=== PATIENT | female | born 1930 | race Caucasian/White ===

== ENCOUNTER 2017-04-18 18:13 | Emergency (ER) | payer OTHER ==
[2015-12-02 16:20] VITALS: BP 165/76
[2017-04-18] MEDS ORDERED: INVANZ INJ 1 GM VIAL 1 GM in NS 50 ML IV + SPIKE MINIBAG* 50 ML IV ONE (18:31)
[2017-04-18] MEDS ORDERED: INVANZ INJ 1 GM VIAL ONE (18:32)
[2017-04-18] MEDS ORDERED: NS 50 ML IV 50 ML IV ONE (18:32)
== END 2017-04-18 19:19 | disposition home or self-care (01) ==
LOC: OUTPT REF 18:13
DX: N39.0 Urinary tract infection, site not specified (principal); Z79.899 Other long term (current) drug therapy; B96.29 Other Escherichia coli [E. coli] as the cause of diseases classified elsewhere
CPT/HCPCS: 96365; 96374; J1335

== ENCOUNTER 2017-05-16 20:39 | Observation (INO) | payer OTHER ==
[2017-05-16 21:16] LABS: BASOPHILS % (AUTO) 0.8 % (0.2-1.0); EOSINOPHILS # (AUTO) 0.5 x10^3/uL (0.0-0.2); EOSINOPHILS % (AUTO) 8.5 % (0.9-2.9); HEMATOCRIT 31.1 % (36.0-47.0); HEMOGLOBIN 10.4 g/dL (12.0-16.0); LYMPHOCYTES # (AUTO) 1.9 X10^3/uL (1.3-2.9); LYMPHOCYTES % (AUTO) 31.2 % (21.0-51.0); MEAN CORPUSCULAR HEMOGLOBIN 32.2 pg (27.0-34.0); MEAN CORPUSCULAR HGB CONC 33.4 g/dL (33.0-35.0); MEAN CORPUSCULAR VOLUME 96.3 fL (80.0-100.0); MEAN PLATELET VOLUME 8.8 fL (7.4-11.0); MONOCYTES # (AUTO) 0.6 x10^3/uL (0.3-0.8); MONOCYTES % (AUTO) 10.1 % (0.0-13.0); NEUTROPHILS # (AUTO) 2.9 x10^3/uL (2.2-4.8); NEUTROPHILS % (AUTO) 49.4 % (42.0-75.0); PLATELET COUNT 119 X10^3/uL (150.0-450.0); RED BLOOD COUNT 3.23 X10^6/uL (3.5-5.4); RED CELL DISTRIBUTION WIDTH 12.9 % (11.6-16.5); WHITE BLOOD COUNT 5.9 X10^3/uL (3.6-10.0)
--- NOTE | 2017-05-16 21:27 | CT ---
CT HEAD WITHOUT CONTRAST CLINICAL HISTORY: 86-year-old female complaining of mini-stroke. COMPARISON: CT head 02/28/2016. TECHNIQUE: Multiple, non-contrasted axial CT images were obtained from the skull base to the cranial vertex. Coronal and sagittal reformats were performed. FINDINGS: There are no abnormal intra- or extra-axial fluid collections, midline shift, or mass effec t. Haas-white differentiation is normal. Global cortical involutional changes are present that are ad vanced for the patient's stated age. The ventricular system is mildly enlarged but commensurate with the degree of sulcal prominence. Chronic lacunar infarctions of bilateral basal ganglia. Periventricu lar and supraventricular white matter hypodensity is present that is nonspecific in appearance, but m ost likely to represent microvascular ischemic changes. Atherosclerotic vascular calcification is pre sent within the carotid siphons and distal vertebral arteries. The imaged paranasal sinuses, mastoid air cells, and tympanic spaces are clear. Bilateral lens implan ts with senescent scleral calcifications. IMPRESSION: 1. No definite evidence of an acute intracranial process. If clinical concern persists, consider MRI/ MRA brain. 2. Moderate microvascular white matter ischemic changes, with associated volume loss. 3. Chronic bilateral lacunar infarcts within the basal ganglia. Reported By:
[2017-05-16 21:33] LABS: CALCIUM 9.4 mg/dL (8.5-10.1); CARBON DIOXIDE 32.5 mmol/L (21-32); CREATININE 1.35 mg/dL (0.55-1.02); TROPONIN I 0.02 ng/mL (0-1.5)
[2017-05-16 21:37] LABS: ALBUMIN 2.8 g/dL (3.4-5.0); CKMB % 1.2 % (<4); COR CA(FOR HYPOALB) 10.4 mg/dL (8.5-10.1); CREATINE KINASE MB 3.6 ng/mL (0-4.0); TOTAL PROTEIN 6.1 g/dL (6.4-8.2)
--- NOTE | 2017-05-16 21:45 | RAD ---
Chest, one view Indication: Weakness Comparison: None Findings: The heart is mildly enlarged and there is mild pulmonary vascular congestion without overt edema. No focal consolidation, significant effusion or pneumothorax is identified. No acute osseous a bnormality is seen. Impression: Mild cardiomegaly and pulmonary vascular congestion without overt edema or focal pneumoni a. Reported By:
--- NOTE | 2017-05-16 22:03 | DR.GENAD ---
HPI - PCP Primary Care Physician: LYRIC - HPI Comment HPI Comment: PATIENT IS NOT BEING FEELING QUITE RIGHT PAST 3 DAYS. SHE WAS INCONTINENCE TO URINE WHEN SHE HAD THE BELOW EPISODE. NO FEVER. WEAK WITH SLIGHT SOB ON EXERTION. - Complaint/Symptoms Chief Complaint Doctors Comments: HAD CHEST PAIN LT PRECORDIAL AREA WHILE LISTENING TO MUSIC. SHE FELT HEAVINESS IN LEFT ARM. WHEN SHE TRY TO MOVE HER WHEELCHAIR, HER LUE WAS HEAVY. COULD NOT MOVE IT. WAS ABLE TO MOVE IT GRADUALY OVER TIME. Chief Complaint:: GROUP HOME STATES PT WAS COMPLAINING THAT SHE HAD A "MINI STROKE". GROUP HOME STATES PT IS WEAKER THAN NORMAL AND HAD AN INCONTINENT EPISODE ALTHOUGH SHE IS NORMALLY CONTINENT. - Nurses notes reviewed Nurses Notes Review: Yes - Source History Provided: Patient, [facility] - Mode of Arrival Mode of Arrival: Stretcher - Timing Onset of Chief Complaint: 05/16/17 Came on: Suddenly - Duration Duration: Constant Duration: Hours - Severity Severity: Moderate PMH - PMH Past Medical History: Yes Past Medical History: Anxiety, Arthritis, Depression, Migraines, GERD, Hypertension Past Surgical History: Yes Surgical History: Hysterectomy, Mastectomy, Thyroidectomy - Family History History of Family Medical Conditions: Yes Family Medical History: Diabetes Mellitus, Cancer, Hypertension - Social History Does any household member use tobacco: No Alcohol Use: None Do you use any recreational Drugs:: No Lives With: Other Lives Where: [facility] - infectious screening In the last 2 months have you had wt loss of >10#?: NO Have you had fever, night sweats or hemotysis?: No Have you traveled outside the country in the last 6 months?: No Isolation: Standard ROS - Review of Systems Constitutional: Weakness, Fatigue, Loss of Appetite. negative: Chills, Fever Eyes: No Symptoms Reported. negative: Eye Pain, Discharge ENTM: No Symptoms Reported. negative: Ear Pain, Nose Discharge, Nose Congestion , Throat Pain Respiratoy: Non-Productive Cough, Short of Breath. negative: Productive Cough, Wheezing Cardiovascular: Chest Pain. negative: Edema, Palpitations Gastrointestinal/Abdominal: negative: Abdominal Pain, Nausea, Vomiting Genitourinary: Other (URINARY INCONTINENCE TONIGHT.). negative: Dysuria, Hematuria Neurological: Weakness. negative: Headache, Dizziness Musculoskeletal: Back Pain, Muscle Pain, Back Integumentary: negative: Change in Color Hematologic/Lymphatic: Anemia Endocrine: No Symptoms Reported All Other Systems: Reviewed and Negative PE - Vital Signs Vitals: Temperature 98.4 F Pulse Rate [Apical] 51 Pulse Rate 53 Respiratory Rate 18 Blood Pressure [Left Calf] 140/65 Blood Pressure [Right Arm] 144/82 Blood Pressure [Left Arm] 126/59 Blood Pressure 134/69 O2 Sat by Pulse Oximetry 95 - General Limitations: No Limitations General Appearance: Alert - Head Head Exam: Normal Inspection - Eyes Eye exam: Normal Appearance, PERRL, EOMI. negative: Scleral Icterus, Conjunctival Injection - ENT ENT Exam: Normal External Ear Exam External Ear Exam: Normal External Inspection TM/Canal Exam: Bilateral Normal Mouth Exam: Normal Inspection Throat Exam: Normal Inspection - Neck Neck Exam: Normal Inspection - Chest Chest Inspection: Symmetric Chest Wall Rise - Respiratory Respiratory Exam: Normal Lung Sounds Bilat Respiratory Exam: Bilateral Wheezing, Bilateral Rhonchi, Upper Rhonchi, Lower Wheezing, Lower Rhonchi - Cardiovascular Cardiovascular Exam: Regular Rate, Normal Rhythm, Normal Heart Sounds - Abdominal Exam Abdominal Exam: Normal Bowel Sounds, Soft. negative: Tenderness - Extremities Extremities Exam: Normal Inspection - Back Back Exam: Paraspinal Tenderness - Neurologic Neurological Exam: Alert, Oriented X3 - Psychiatric Psychiatric Exam: Normal Affect, Normal Mood - Skin Skin Exam: Normal Color MDM - Additional Information Additional Information Obtained From: Family - Differential Diagnosis Differential Diagnosis: CHEST PAIN, LUEE WEAKNESS, CVA, LA, PNEMONIA Course - Treatment Treatment: SEE ORDERS. - Consultation Consultation Comments: DISCUSS PATIENT WITH DR. STEWART. HE WILL ADMIT PATIENT. - Education/Counseling Education/Counseling: Patient, Family, Education Educated On: Diagnosis ROR - Labs Reviewed Laboratory Results Reviewed?: Yes Result Diagrams: 05/16/17 21:05 05/16/17 21:05 Laboratory: WBC 5.9 X10^3/uL (3.6-10.0) 05/16/17 21:05 RBC 3.23 X10^6/uL (3.5-5.4) L 05/16/17 21:05 Hgb 10.4 g/dL (12.0-16.0) L 05/16/17 21:05 Hct 31.1 % (36.0-47.0) L 05/16/17 21:05 MCV 96.3 fL (80.0-100.0) 05/16/17 21:05 MCH 32.2 pg (27.0-34.0) 05/16/17 21:05 MCHC 33.4 g/dL (33.0-35.0) 05/16/17 21:05 RDW 12.9 % (11.6-16.5) 05/16/17 21:05 Plt Count 119 X10^3/uL (150.0-450.0) L 05/16/17 21:05 MPV 8.8 fL (7.4-11.0) 05/16/17 21:05 Neut % 49.4 % (42.0-75.0) 05/16/17 21:05 Lymph % 31.2 % (21.0-51.0) 05/16/17 21:05 [place] % 10.1 % (0.0-13.0) 05/16/17 21:05 Eos % 8.5 % (0.9-2.9) H 05/16/17 21:05 Baso % 0.8 % (0.2-1.0) 05/16/17 21:05 Neut # 2.9 x10^3/uL (2.2-4.8) 05/16/17 21:05 Lymph # 1.9 X10^3/uL (1.3-2.9) 05/16/17 21:05 [place] # 0.6 x10^3/uL (0.3-0.8) 05/16/17 21:05 Eos # 0.5 x10^3/uL (0.0-0.2) H 05/16/17 21:05 Baso # 0.0 X10^3/uL (0.0-0.1) 05/16/17 21:05 Absolute Nucleated RBC 0.0 /100WBC 05/16/17 21:05 Sodium 144 mmol/L (136-145) 05/16/17 21:05 Corrected Sodium 145 mmol/L (136-145) 05/16/17 21:05 Potassium 4.0 mmol/L (3.5-5.1) 05/16/17 21:05 Chloride 110 mmol/L (98-107) H 05/16/17 21:05 Carbon Dioxide 32.5 mmol/L (21-32) H 05/16/17 21:05 BUN 29 mg/dL (7-18) H 05/16/17 21:05 Creatinine 1.35 mg/dL (0.55-1.02) H 05/16/17 21:05 Est GFR (MDRD) Af Amer 48 (>60) L 05/16/17 21:05 Est GFR (MDRD) Non-Af 39 (>60) L 05/16/17 21:05 Glucose 131 mg/dL (65-99) H 05/16/17 21:05 Calcium 9.4 mg/dL (8.5-10.1) 05/16/17 21:05 Corrected Calcium 10.4 mg/dL (8.5-10.1) H 05/16/17 21:05 Total Bilirubin 0.20 mg/dL (0.2-1.0) 05/16/17 21:05 AST 21 Units/L (15-37) 05/16/17 21:05 ALT 12 Units/L (12-78) 05/16/17 21:05 Alkaline Phosphatase 118 Units/L (46-116) H 05/16/17 21:05 Creatine Kinase 310 Units/L (26-192) H 05/16/17 21:05 CK-MB (CK-2) 3.6 ng/mL (0-4.0) 05/16/17 21:05 CK/CKMB % Calc 1.2 % (<4) 05/16/17 21:05 Troponin I 0.02 ng/mL (0-1.5) 05/16/17 21:05 Total Protein 6.1 g/dL (6.4-8.2) L 05/16/17 21:05 Albumin 2.8 g/dL (3.4-5.0) L 05/16/17 21:05 Globulin 3.3 g/dL (2.5-4.5) 05/16/17 21:05 Albumin/Globulin Ratio 0.8 Ratio (1.1-2.1) L 05/16/17 21:05 - XRAY XRAY Interpreted by: Radiologist XRAY Findings: REPORT DISCUSS WITH PATIENT AND FAMILY. - EKG Rhythm: NSR (EKG NOTED) - Diagnosis Discharge Problem: LUE weakness Chest pain Qualifiers: Chest pain type: precordial pain Qualified Code(s): R07.2 - Precordial pain - Discharge Plan Disposition: ADMITTED INPATIENT Condition: Stable - Follow ups/Referrals - Instructions
[2017-05-16] MEDS: NS 1000 ML 1,000 ML IV SCH (23:20)
[2017-05-16 23:52] LABS: BILIRUBIN,URINE NEGATIVE (NEGATIVE); BLOOD/HEMOGLOBIN,URINE NEGATIVE (NEGATIVE); GLUCOSE, URINE NEGATIVE (NEGATIVE); KETONES,URINE NEGATIVE (NEGATIVE); LEUKOCYTE ESTERASE ,URINE 1+ (NEGATIVE); NITRITES,URINE NEGATIVE (NEGATIVE); PROTEIN,URINE NEGATIVE (NEGATIVE); UROBILINOGEN,URINE NORMAL (NORMAL)
[2017-05-17 00:05] LABS: APPEARANCE,URINE CLEAR (CLEAR); COLOR,URINE YELLOW (YELLOW); RBC,URINE 0-3 /HPF (NEGATIVE)
[2017-05-17 00:06] LABS: BACTERIA,URINE NEGATIVE /HPF (NEGATIVE); SQUAMOUS EPITHELIAL CELL,UR FEW /HPF (NEGATIVE)
[2017-05-17 06:09] LABS: CKMB % 1.1 % (<4); CREATINE KINASE MB 2.4 ng/mL (0-4.0); TROPONIN I 0.04 ng/mL (0-1.5)
[2017-05-17 06:10] LABS: BASOPHILS % (AUTO) 0.6 % (0.2-1.0); EOSINOPHILS # (AUTO) 0.5 x10^3/uL (0.0-0.2); EOSINOPHILS % (AUTO) 7.9 % (0.9-2.9); HEMATOCRIT 32.5 % (36.0-47.0); HEMOGLOBIN 10.8 g/dL (12.0-16.0); LYMPHOCYTES # (AUTO) 1.9 X10^3/uL (1.3-2.9); MEAN CORPUSCULAR HEMOGLOBIN 31.9 pg (27.0-34.0); MEAN CORPUSCULAR HGB CONC 33.2 g/dL (33.0-35.0); MEAN CORPUSCULAR VOLUME 96.1 fL (80.0-100.0); MEAN PLATELET VOLUME 9.7 fL (7.4-11.0); MONOCYTES # (AUTO) 0.6 x10^3/uL (0.3-0.8); MONOCYTES % (AUTO) 8.1 % (0.0-13.0); NEUTROPHILS # (AUTO) 3.8 x10^3/uL (2.2-4.8); NEUTROPHILS % (AUTO) 55.4 % (42.0-75.0); PLATELET COUNT 126 X10^3/uL (150.0-450.0); RED BLOOD COUNT 3.38 X10^6/uL (3.5-5.4); RED CELL DISTRIBUTION WIDTH 13.1 % (11.6-16.5); WHITE BLOOD COUNT 6.9 X10^3/uL (3.6-10.0)
[2017-05-17 06:23] LABS: ALANINE AMINOTRANSFERASE 13 Units/L (12-78); ALBUMIN 2.8 g/dL (3.4-5.0); ALKALINE PHOSPHATASE 108 Units/L (46-116); ASPARTATE AMINO TRANSFERASE 24 Units/L (15-37); BLOOD UREA NITROGEN 22 mg/dL (7-18); CALCIUM 9.5 mg/dL (8.5-10.1); CHLORIDE 112 mmol/L (98-107); CHOL/HDL RATIO 2.9 (0.0-5.0); CHOLESTEROL 147 mg/dL (0-200); COR CA(FOR HYPOALB) 10.5 mg/dL (8.5-10.1); CREATININE 1.06 mg/dL (0.55-1.02); HDL CHOLESTEROL 51 mg/dL (40-60); MAGNESIUM 1.8 mg/dL (1.7-2.9); SODIUM 145 mmol/L (136-145); TOTAL PROTEIN 6.2 g/dL (6.4-8.2); TRIGLYCERIDES 110 mg/dL (0-150); eGFR BLACK RACES > 60 (>60); eGFR NON BLACK RACES 52 (>60)
[2017-05-17] MEDS ORDERED: XANAX PO PRN (09:12)
[2017-05-17] MEDS ORDERED: NORCO 10/325 TAB PO PRN (09:13)
[2017-05-17] MEDS ORDERED: PATIENT'S HOME MEDICATION (Memantine Hcl [Namenda] 5 MG) PO SCH (09:15)
[2017-05-17] MEDS ORDERED: LACTOSE REDUCED FOOD PO SCH (09:15)
[2017-05-17] MEDS ORDERED: PATIENT'S HOME MEDICATION (Zinc [Zinc] 50 MG) PO SCH (09:15)
[2017-05-17] MEDS ORDERED: PATIENT'S HOME MEDICATION (Ranitidine Hcl [Zantac] 300 MG) PO SCH (09:15)
[2017-05-17] MEDS ORDERED: CATAPRES-TTS-1 TD SCH (10:00)
[2017-05-17] MEDS: ASPIRIN EC 81 MG PO SCH (10:35)
[2017-05-17] MEDS: COLACE CAP 100 MG PO SCH ×2 (10:35→21:56)
[2017-05-17] MEDS: NORVASC TAB 5 MG PO SCH (10:36)
[2017-05-17] MEDS: PLAVIX PO SCH (10:36)
[2017-05-17] MEDS: MOBIC TAB 15 MG PO SCH (10:36)
[2017-05-17] MEDS: COZAAR PO SCH (10:36)
[2017-05-17] MEDS: VITAMIN C PO SCH ×2 (10:37→21:56)
[2017-05-17] MEDS: TOPROL XL PO SCH (10:37)
[2017-05-17 11:22] LABS: TROPONIN I 0.03 ng/mL (0-1.5)
[2017-05-17] MEDS ORDERED: PATIENT'S HOME MEDICATION (Carboxymethylcellulose Sodium [Refresh Tears] 1 DROP) OP SCH (14:00)
[2017-05-17] MEDS: NEURONTIN CAP 300 MG PO SCH ×2 (14:05→21:56)
[2017-05-17 18:02] LABS: CKMB % 0.9 % (<4); CREATINE KINASE MB 2.2 ng/mL (0-4.0); TROPONIN I 0.03 ng/mL (0-1.5)
[2017-05-17] MEDS ORDERED: LEXAPRO ONE (20:58)
[2017-05-17] MEDS ORDERED: REQUIP PO SCH (21:00)
[2017-05-17] MEDS ORDERED: LEXAPRO PO SCH (21:00)
[2017-05-17] MEDS ORDERED: DESYREL PO SCH (21:00)
[2017-05-17] MEDS ORDERED: COLACE CAP 100 MG PO SCH (21:00)
[2017-05-17] MEDS ORDERED: NAMENDA TAB 10 MG PO SCH (21:00)
[2017-05-17] MEDS ORDERED: TOPAMAX PO SCH (21:00)
[2017-05-17] MEDS ORDERED: ZIPRASIDONE HCL 40 MG PO SCH (21:00)
[2017-05-17] MEDS ORDERED: MIRALAX POWDER (1 DOSE 17GM) PO SCH (21:00)
[2017-05-17] MEDS ORDERED: ARICEPT TAB 10 MG PO SCH (21:00)
[2017-05-17] MEDS ORDERED: GEODON PO SCH (21:00)
[2017-05-17] MEDS ORDERED: ESCITALOPRAM OXALATE 20 MG PO SCH (21:00)
[2017-05-17] MEDS ORDERED: MILK OF MAGNESIA PO SCH (21:00)
[2017-05-17] MEDS: ZANTAC PO SCH (21:55)
[2017-05-17 23:18] LABS: CREATINE KINASE MB 1.9 ng/mL (0-4.0); TROPONIN I 0.03 ng/mL (0-1.5)
[2017-05-18] MEDS: NS 1000 ML 1,000 ML IV SCH (01:35)
[2017-05-18] MEDS: NEURONTIN CAP 300 MG PO SCH (05:15)
[2017-05-18 06:10] LABS: BASOPHILS # (AUTO) 0.1 X10^3/uL (0.0-0.1); BASOPHILS % (AUTO) 0.8 % (0.2-1.0); EOSINOPHILS # (AUTO) 0.4 x10^3/uL (0.0-0.2); EOSINOPHILS % (AUTO) 4.9 % (0.9-2.9); HEMATOCRIT 37.6 % (36.0-47.0); HEMOGLOBIN 12.6 g/dL (12.0-16.0); LYMPHOCYTES # (AUTO) 1.8 X10^3/uL (1.3-2.9); LYMPHOCYTES % (AUTO) 24.4 % (21.0-51.0); MEAN CORPUSCULAR HEMOGLOBIN 31.9 pg (27.0-34.0); MEAN CORPUSCULAR HGB CONC 33.6 g/dL (33.0-35.0); MEAN PLATELET VOLUME 9.4 fL (7.4-11.0); MONOCYTES # (AUTO) 0.8 x10^3/uL (0.3-0.8); MONOCYTES % (AUTO) 10.7 % (0.0-13.0); NEUTROPHILS # (AUTO) 4.4 x10^3/uL (2.2-4.8); NEUTROPHILS % (AUTO) 59.2 % (42.0-75.0); PLATELET COUNT 151 X10^3/uL (150.0-450.0); RED BLOOD COUNT 3.96 X10^6/uL (3.5-5.4); RED CELL DISTRIBUTION WIDTH 12.8 % (11.6-16.5); WHITE BLOOD COUNT 7.4 X10^3/uL (3.6-10.0)
--- NOTE | 2017-05-18 06:27 | RAD ---
Examination: Portable AP chest History: SOB Comparison reference: 05/16/2017 Findings: Continued normal heart size with essentially clear lungs. Prominence of the central vascula rity is attributed to nonstandard projection. There is no evidence for pneumonia or pleural fluid. Le ft shoulder arthropathy is incidentally noted. Impression: No acute process demonstrated. Reported By:
[2017-05-18 06:58] LABS: ALANINE AMINOTRANSFERASE 15 Units/L (12-78); ALBUMIN 3.2 g/dL (3.4-5.0); ALKALINE PHOSPHATASE 125 Units/L (46-116); ASPARTATE AMINO TRANSFERASE 26 Units/L (15-37); BLOOD UREA NITROGEN 13 mg/dL (7-18); CALCIUM 10.1 mg/dL (8.5-10.1); CARBON DIOXIDE 26.1 mmol/L (21-32); CHLORIDE 110 mmol/L (98-107); CKMB % 1.1 % (<4); COR CA(FOR HYPOALB) 10.7 mg/dL (8.5-10.1); CREATINE KINASE 145 Units/L (26-192); CREATINE KINASE MB 1.6 ng/mL (0-4.0); CREATININE 0.99 mg/dL (0.55-1.02); SODIUM 144 mmol/L (136-145); TOTAL PROTEIN 7.1 g/dL (6.4-8.2); TROPONIN I 0.03 ng/mL (0-1.5); eGFR BLACK RACES > 60 (>60); eGFR NON BLACK RACES 56 (>60)
[2017-05-18 07:09] VITALS: BMI 19.8
[2017-05-18] MEDS ORDERED: TOPROL XL PO ONE (08:07)
[2017-05-18] MEDS: TOPROL XL PO SCH (08:47)
[2017-05-18] MEDS: ASPIRIN EC 81 MG PO SCH (08:48)
[2017-05-18] MEDS: COLACE CAP 100 MG PO SCH (08:48)
[2017-05-18] MEDS: PLAVIX PO SCH (08:48)
[2017-05-18] MEDS: COZAAR PO SCH (08:48)
[2017-05-18] MEDS: MOBIC TAB 15 MG PO SCH (08:48)
[2017-05-18] MEDS: ZANTAC PO SCH (08:49)
[2017-05-18] MEDS: NORVASC TAB 5 MG PO SCH (08:49)
[2017-05-18] MEDS: VITAMIN C PO SCH (08:49)
[2017-05-18] MEDS ORDERED: NAMENDA TAB 10 MG PO SCH (09:00)
[2017-05-18] MEDS ORDERED: NORVASC TAB 10 MG PO SCH (10:00)
[2017-05-18] MEDS ORDERED: CATAPRES-TTS-2 TD SCH ×2 (10:00→11:00)
--- NOTE | 2017-05-18 13:00 | MRI ---
MRA HEAD WITHOUT CONTRAST CLINICAL HISTORY: 86-year-old female with headaches, dizziness and left-sided weakness PE COMPARISONS: None. TECHNIQUE: 3-D time of flight magnetic resonance angiographic images of the [place] were obt ained and presented as maximum intensity projection images in rotating format. FINDINGS: Left dominant vertebral artery. Bilateral PICA are present. The basilar artery is normal in appearanc e and gives off normal bilateral AICA superior cerebellar and posterior cerebral arteries. The recording studio intern al carotid arteries are normal from the distal cervical segments to the carotid terminus. There are s mall caliber posterior communicating arteries bilaterally. The middle cerebral arteries are normal in course and caliber. The anterior communicating artery is fenestrated with a serpiginous, tortuous co urse of the A1 segments. IMPRESSION: 1. No aneurysm, high-grade stenosis, complete occlusion, dissection or vascular malformation. Reported By:
--- NOTE | 2017-05-18 13:06 | MRI ---
MRI BRAIN WITHOUT AND WITH CONTRAST CLINICAL HISTORY: 86-year-old female with headaches, dizziness and left-sided weakness. COMPARISON: CT head 05/16/2017. TECHNIQUE: Multiplanar, multisequence MR images of the brain were obtained prior to and following th e uneventful intravenous administration of contrast. FINDINGS: Study is limited secondary to patient motion. There is no evidence of diffusion restriction. The craniocervical junction is normal. Pituitary and o ptic nerve complex are normal. Multifocal confluent and punctate T2 FLAIR signal hyperintensities are present within the periventricular and supraventricular white matter that are nonspecific in appeara nce but most likely to represent microvascular white matter ischemic changes. Chronic lacunar infarct ions in the bilateral basal ganglia. Enlarged perivascular spaces within the basal ganglia. Normal si gnal characteristics and morphology are demonstrated within the cerebral cortex, corpus callosum, jeffry p morrow nuclei, brainstem and cerebellum. The major vascular channels opacify normally and the major v ascular flow voids, to include the dural venous sinuses, are intact. Age advanced cortical volume los s is present, with commensurate sulcal and ventricular prominence. The basilar cisterns are normal. T here is no evidence of abnormal intracranial enhancement. Bilateral lens implants. The orbits and globes are otherwise within normal limits. The paranasal sinu ses and mastoids are clear. IMPRESSION: 1. No acute ischemic or hemorrhagic insult. 2. 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 3. Bilateral chronic lacunar infarcts within the basal ganglia. Reported By:
[2017-05-18 13:50] VITALS: BP 168/83
--- NOTE | 2017-05-18 16:16 | DR.H&P ---
H&P - History & Physical for Day of: H&P Date: 05/16/17 - Chief Complaint Chief Complaint: chest pain, left arm weakness - Allergies Allergies/Adverse Reactions: Allergies Allergy/AdvReac Type Severity Reaction Status Date / Time codeine Allergy Verified 05/16/17 22:24 - History of Present Illness History of Present Illness: is a 86 year old patient of ours who presented to the emergency room with complaints of chest pain. alf staff reports that patient states that she thinks she may have had a mini stroke. They state that patient is weaker than normal and had an incontinent episode. Patient is normally continent. Patient is also noted with complaints of left arm weakness and drooping of the wrist. Patient describes chest pain in the precordial area. She states that it came on suddenly while listening to music. Associated symptoms include weakness, fatigue, loss of appetite, non productive cough, shortness of breath, chest pain and urinary incontinence. On examination, bilateral wheezing and rhonchi are noted throughout. Abdomen is round, soft, and non-tender with normal bowel sounds noted in all quadrants. On arrival to the emergency room, vital signs were 98.4, 53, 20, 95%RA, 134/69. Labs, xray, and brain ct were obtained. Abnormal Lab values include the following: RBC 3.23, Hgb 10.4, Hct 31.1, Plt Count 119, Chloride 110, Carbon Dioxide 32.5, BUN 29, Creatinine 1.35, GFR(AA) 48, GFR(non) 39, Glucose 131, Corrected Calcium 10.4, Alk Phos 118, Creatine Kinase 310, Total Protein 6.1, Albumin 2.8, A/G Ratio 0.8. Urinalysis reported: Leuk Key 1+, RBC 0-3, WBC 0-3 , Squam Epith Cells Few. Chest xray reported: Mild cardiomegaly and pulmonary vascular congestion without overt edema or focal pneumonia. Brain CT reported: No definite evidence of an acute intracranial process. If clinical concern persists, consider MRI/MRA brain. Moderate microvascular white matter ischemic changes, with associated volume loss. Chronic bilateral lacunar infarcts within the basal ganglia. EKG: Sinus rhythm. Heart rate=52. We admitted patient for further treatment and evaluation. We will obtain serial cardiac enzymes and EKGs. We plan to follow up with am labs and continue to monitor patient. - Past Medical History Past Medical History: Anxiety, Arthritis, Depression, Migraines, GERD, Hypertension Additional Medical History: Right Breast Cancer in 1985 - Past Surgical History Surgical History: Hysterectomy, Mastectomy, Thyroidectomy - Family History Family Medical History: Diabetes Mellitus, Cancer, Hypertension - Social History Does any household member use tobacco: No Alcohol Use: None Drug Use: None - Medications Home Medications: Alprazolam 1 tab PO Q8H PRN 05/16/17 [History Confirmed 05/17/17] Ascorbic Acid [VITAMIN C tab 500 mg *] 500 mg PO BID 05/16/17 [History Confirmed 05/17/17] Carboxymethylcellulose Sodium [Refresh Tears] 1 drop OP TID 05/16/17 [History Confirmed 05/17/17] Donepezil Hydrochloride [ARICEPT TAB 10 MG *] 10 mg PO HS 05/16/17 [History Confirmed 05/17/17] Escitalopram Oxalate [Lexapro 20 mg] 20 mg PO HS 05/16/17 [History Confirmed 09/01] Hydrocodone-Acet 10/325 mg [NORCO 10 MG/325 MG *] 1 tab PO Q4HR PRN 05/16/17 [ History Confirmed 05/17/17] Lactose-Reduced Food [Ensure Enlive] 8 oz PO DAILY 05/16/17 [History Confirmed 05/17/17] Losartan Potassium [LOSARTAN POTASSIUM 50 MG *] 75 mg PO DAILY 05/16/17 [ History Confirmed 05/17/17] Meloxicam 1 tab PO DAILY 05/16/17 [History Confirmed 05/17/17] Memantine HCl [NAMENDA 10 MG *] 10 mg PO HS 05/16/17 [History Confirmed 05/17/17 ] Memantine HCl [Namenda] 5 mg PO DAILY 05/16/17 [History Confirmed 05/17/17] Metoprolol Succinate Ext Rel [TOPROL XL 100 MG *] 100 mg PO DAILY 05/16/17 [ History Confirmed 05/17/17] Ranitidine HCl [Zantac] 300 mg PO BID 05/16/17 [History Confirmed 05/17/17] Ropinirole HCl [REQUIP 1 MG *] 1 mg PO HS 05/16/17 [History Confirmed 05/17/17] Topiramate 1 tab PO HS 05/16/17 [History Confirmed 05/17/17] Trazodone HCl [TRAZODONE 50 MG (DESYREL) *] 50 mg PO HS 05/16/17 [History Confirmed 05/17/17] Zinc 50 mg PO DAILY 05/16/17 [History Confirmed 05/17/17] Ziprasidone HCl [Geodon] 40 mg PO HS 05/16/17 [History Confirmed 05/17/17] - Review of Systems Constitutional: Weakness Eyes: No Symptoms Reported - Physical Exam Vital Signs: Temperature 99.2 F Pulse Rate [Apical] 69 Pulse Rate 53 Respiratory Rate 20 Blood Pressure [Left Calf] 140/65 Blood Pressure [Right Arm] 144/82 Blood Pressure [Left Arm] 168/83 Blood Pressure 134/69 O2 Sat by Pulse Oximetry 94
== END 2017-05-18 14:40 ==
LOC: ER 20:39 → ICU 22:33 → MED/SURG 05-17 09:45
PROVIDERS: ADMIT Internal Medicine; ATTEND Internal Medicine
DX: R07.2 Precordial pain (principal); M62.81 Muscle weakness (generalized); R94.31 Abnormal electrocardiogram [ECG] [EKG]; R06.02 Shortness of breath; N39.498 Other specified urinary incontinence; I51.7 Cardiomegaly; K21.9 Gastro-esophageal reflux disease without esophagitis; I10 Essential (primary) hypertension; L89.322 Pressure ulcer of left buttock, stage 2; L89.312 Pressure ulcer of right buttock, stage 2; D64.89 Other specified anemias; Z79.899 Other long term (current) drug therapy
CPT/HCPCS: 36415; 70450; 70544; 70553; 71010; 80053; 80061; 81001; 82550; 82553; 83735; 84484; 85025; 93005; 96365; 99284; A4222; G0378

== ENCOUNTER → 2017-09-18 | Outpatient (CLI) | payer OTHER | END | disposition home or self-care (01) | DRG 951 | LOC: RT 14:52 | PROVIDERS: ATTEND Internal Medicine | DX: Z01.810 Encounter for preprocedural cardiovascular examination (principal); L89.153 Pressure ulcer of sacral region, stage 3 | CPT/HCPCS: 93005 ==

== ENCOUNTER → 2017-09-19 | Outpatient (CLI) | payer OTHER ==
--- NOTE | 2017-09-19 12:57 | RAD ---
HISTORY: Preop Study: PA and lateral chest Comparison: 05/18/2017 Findings: There are findings of mild interstitial fibrosis. Borderline cardiomegaly is noted. Moderate tortuo sity of the aorta is present. Moderate osteopenia is noted. Severe degenerative changes present in the left shoulder with mild in the right shoulder. [id number] thoracic spondylosis is noted. IMPRESSION: 1. No radiographic evidence of acute cardiopulmonary disease or significant change is noted when com pared to the prior examination. Reported By:
--- NOTE | 2017-09-19 15:14 | NM ---
HISTORY: Sacral wound Study: Nuclear medicine whole-body bone scan Comparison: None Technique: Whole body bone scintigraphy was performed in the anterior and posterior projection after the intravenous administration of 20.3 mCi of technetium labeled . Findings: There is mild degenerative type uptake within the bilateral shoulders and knees. No suspicious bone u ptake is identified. Of note, evaluation of the sacrum is limited due to physiologic radiotracer acti vity within the bladder. Physiologic distribution of radiotracer is observed throughout the remaining appendicular and axial skeleton. Normal soft tissue uptake is noted to be present as well. IMPRESSION: Limited evaluation of the sacrum due to physiologic bladder activity. If there is high clinical prabha rn for osteomyelitis of the sacrum, consider further evaluation with dedicated sacral radiographs. Mild degenerative type uptake of the bilateral shoulders and knees. Otherwise, unremarkable whole bod y bone scan, as visualized. Reported By:
== END ==
LOC: RAD 10:02
PROVIDERS: ATTEND Internal Medicine
DX: L89.153 Pressure ulcer of sacral region, stage 3 (principal); M19.90 Unspecified osteoarthritis, unspecified site
CPT/HCPCS: 71046; 78306; A9503

== ENCOUNTER 2017-09-20 08:29 | Day surgery (SDC) | payer OTHER ==
[~2017-09-20 08:29] MED LIST: XYLOCAINE 1 % (PLAIN) ONE
[2017-09-20] MEDS ORDERED: ANCEF 1 GM IV PREMIX* 1 GM/50 ML BAG IV ONE (08:44)
[2017-09-20] MEDS ORDERED: LR 1000 ML IV 1,000 ML IV ONE (08:44)
[2017-09-20] MEDS ORDERED: NS IRRIGATION 1000 ML 1,000 ML with BACITRACIN VIAL 50,000 UNT IR ONE ×2 (09:12)
[2017-09-20 10:08] VITALS: BP 128/60
[2017-09-20] MEDS ORDERED: DIPRIVAN VIAL ONE (13:50)
== END 2017-09-20 10:08 | disposition home or self-care (01) | DRG 570 ==
LOC: SURG1 08:29
PROVIDERS: ATTEND Surgery
PROC: 0JB70ZZ Excision of Back Subcutaneous Tissue and Fascia, Open Approach (ICD-10-PCS; principal; 2017-09-20 08:45)
DX: L89.153 Pressure ulcer of sacral region, stage 3 (principal)
CPT/HCPCS: 87070; 87075; 87205; 99100; A4222; J0690; J2001; J3490; J7120

== ENCOUNTER 2017-10-05 10:31 | Day surgery (SDC) | payer OTHER ==
[~2017-10-05 10:31] MED LIST changes: +LR 1000 ML IV 1,000 ML IV ONE; -XYLOCAINE 1 % (PLAIN) ONE
[2017-10-05] MEDS ORDERED: MARCAINE 0.25% INJ ONE (11:34)
[2017-10-05] MEDS: ANCEF 1 GM IV PREMIX* 1 GM/50 ML BAG IV ONE ×2 (11:52→12:45)
[2017-10-05] MEDS ORDERED: FENTANYL INJ 100 mcg ONE (13:02)
[2017-10-05] MEDS ORDERED: XYLOCAINE 1% and EPINEPHRINE 1:100,000 ONE (13:12)
[2017-10-05] MEDS ORDERED: LEVAQUIN PREMIX IV 500 MG 500 MG/100 ML BAG IV ONE (13:14)
[2017-10-05] MEDS ORDERED: NS IRRIGATION 1000 ML 1,000 ML with BACITRACIN VIAL 50,000 UNT IR ONE ×2 (13:23)
[2017-10-05] MEDS ORDERED: VERSED ONE (13:35)
[2017-10-05] MEDS ORDERED: DIPRIVAN VIAL ONE (13:35)
[2017-10-05] MEDS ORDERED: XYLOCAINE 2 % (PLAIN) ONE (13:35)
[2017-10-05] MEDS ORDERED: BACTROBAN OINT ONE (14:01)
[2017-10-05 15:05] VITALS: BP 135/71
== END 2017-10-05 14:55 ==
LOC: SURG1 10:31
PROVIDERS: ATTEND Surgery
PROC: 0HX6XZZ Transfer Back Skin, External Approach (ICD-10-PCS; 2017-10-05)
PROC: 0JD70ZZ Extraction of Back Subcutaneous Tissue and Fascia, Open Approach (ICD-10-PCS; principal; 2017-10-05 12:00)
DX: L89.153 Pressure ulcer of sacral region, stage 3 (principal)
CPT/HCPCS: 99100; A4222; S0020; J0690; J1956; J2001; J2250; J3010; J3490; J7120

== ENCOUNTER 2018-05-17 22:19 | Observation (INO) ==
[2018-05-17 22:35] VITALS: BMI 19.5
--- NOTE | 2018-05-17 23:06 | DR.GENAD ---
HPI - PCP Primary Care Physician: LYRIC - Complaint/Symptoms Chief Complaint Doctors Comments: Patient sent from residential for evaluation of lethargy, weakness, decreased intake with sacral decubitus that is draining more than usual. patient is alert and denies chest pain, SOB, cold or cough. states she hurts all over. States she is a patient of Dr. Nugent. Chief Complaint:: RECIEVED REPORT FROM Chas BLANCO FROM [facility]. REPORTED GENERALIZED WEAKNESS, LETHARGY, AND DECREASED URINARY OUTPUT TODAY. ALSO NURSE REPORTS THAT PT HAS A SACRAL WOUND THAT IS OPEN MORE AND DRAINING MORE THAN IT HAS BEEN. INFORMED THAT PT HAD AN IN AND OUT CATH DONE TODAY THAT SHOWED A UTI. PT IS A FULL CODE. - Nurses notes reviewed Nurses Notes Review: Yes - Source History Provided: [facility] - Mode of Arrival Mode of Arrival: Stretcher - Timing Onset of Chief Complaint: 05/17/18 Came on: Gradually - Duration Duration: Constant How lon Duration: Days - Location Location: weakness - Severity Severity: Moderate - Modifying Factors Worsens:: nothing Improves:: nothing PMH - PMH Past Medical History: Yes Past Medical History: Anxiety, Arthritis, Dementia, Depression, Migraines, GERD, Hypertension, Schizophrenia Past Medical History Comment: OSTEOARTHRITIS, HYPERLIPIDEMIA Past Surgical History: Yes Surgical History: Hysterectomy, Mastectomy, Thyroidectomy - Family History History of Family Medical Conditions: Yes Family Medical History: Diabetes Mellitus, Cancer, Hypertension - Social History Does patient currently use any type of tobacco product: No Have you used tobacco products in the last 12 months: No Type of Tobacco Use: None Does any household member use tobacco: No Alcohol Use: None Do you use any recreational Drugs:: No Lives Where: [facility] - infectious screening In the last 2 months have you had wt loss of >10#?: NO Have you had fever, night sweats or hemotysis?: No Have you traveled outside the country in the last 6 months?: No Isolation: Standard ROS - Review of Systems Constitutional: No Symptoms Reported, Malaise, Weakness, Loss of Appetite Eyes: No Symptoms Reported ENTM: No Symptoms Reported Respiratoy: No Symptoms Reported. negative: See HPI, Productive Cough, Non- Productive Cough, Moist Cough, Dry Cough, Hacking Cough, Barking Cough, Brassy Cough, Orthopnea, Short of Breath, Stridor, Wheezing, Hemoptysis, Other Cardiovascular: No Symptoms Reported. negative: See HPI, Chest Pain, Edema, Palpitations, Syncope, Cyanosis, Skin Mottling, Other Gastrointestinal/Abdominal: No Symptoms Reported. negative: See HPI, Abdominal Pain, Constipation, Diarrhea, Nausea, Vomiting, Food Intolerance, Other Genitourinary: No Symptoms Reported Neurological: No Symptoms Reported Musculoskeletal: No Symptoms Reported, Back Pain (chronic back pain) Integumentary: No Symptoms Reported, Wound (sacral wound 2 -3 cm ulceration with erythema) Hematologic/Lymphatic: No Symptoms Reported Endocrine: No Symptoms Reported, Failure to Thrive, Decreased Appetite Psychiatric: No Symptoms Reported PE - General Limitations: No Limitations General Appearance: Alert, In No Apparent Distress - Head Head Exam: Normal Inspection, Atraumatic, Normocephalic - Eyes Eye exam: Normal Appearance, PERRL, EOMI. negative: Scleral Icterus, Conjuncti fabricio Injection, Nystagmus, Miosis, Mydrasis, Periorbital Swelling, Periorbital Tenderness, Other - ENT ENT Exam: Normal Exam, Normal Oropharynx, Normal External Ear Exam, Mucous Membranes Moist, TM's Normal Bilaterally External Ear Exam: Normal External Inspection TM/Canal Exam: Bilateral Normal Nose Exam: Normal Nose Exam Mouth Exam: Normal Inspection Throat Exam: Normal Inspection. negative: Tonsillar Erythema, Tonsillomegaly, Tonsillar Exudate, R Peritonsillar Mass, L Peritonsillar Mass, Muffled Voice, Other - Neck Neck Exam: Normal Inspection, Full ROM, Trachea Midline. negative: Tenderness, Meningismus, Lymphadenopathy, Thyromegaly, Other - Chest Chest Inspection: Normal Inspection, Symmetric Chest Wall Rise - Respiratory Respiratory Exam: Normal Lung Sounds Bilat Respiratory Exam: Bilateral Clear to Auscultation - Cardiovascular Cardiovascular Exam: Regular Rate, Normal Rhythm, Normal Heart Sounds - Abdominal Exam Abdominal Exam: Normal Inspection, Normal Bowel Sounds, Soft Abdominal Tenderness: negative: RUQ, RLQ, LUQ, LLQ, Epigastrium, Suprapubic, Diffuse, Mild, Moderate, Severe, Other - Extremities Extremities Exam: Normal Inspection, Full ROM, Normal Capillary Refill. negative: Tenderness, Edema, Joint Swelling, Calf Tenderness, Other - Back Back Exam: Normal Inspection, Full ROM - Neurologic Neurological Exam: Alert, Oriented X3, CN II-XII Intact, Reflexes Normal. negative: Normal Gait (gait not tested) - Psychiatric Psychiatric Exam: Normal Affect, Normal Mood - Skin Skin Exam: Warm, Dry. negative: Intact (2-3 cm sacral ulcer with erythema, pinkish drainage) - Vital Signs Vitals: Temperature 97.9 F Pulse Rate [Left Brachial] 44 Pulse Rate 46 Respiratory Rate 18 Blood Pressure [Left Calf] 104/53 Blood Pressure [Right Arm] 144/82 Blood Pressure [Left Arm] 168/83 Blood Pressure 126/61 O2 Sat by Pulse Oximetry 97 Course - Reevaluation 1st: Improved - Consultation Called: :57 Call Returned: :57 (Dr. Darnell to admit) - Education/Counseling Education/Counseling: Patient Educated On: Treatment, Diagnosis, Needs for Follow Up ROR - Labs Reviewed Laboratory Results Reviewed?: Yes (All labs and x-ray results reviewed and discussed with patient) Result Diagrams: 05/17/18 23:12 05/17/18 23:12 - XRAY XRAY Interpreted by: Radiologist (CXR: Right lung opacities concerning for developing pneumonia. Underlying neoplasm not excluded) - EKG Rate: 49 [place]: Normal Rhythm: SB Block: None Hypertrophy: LVH ST: Nonsp - Labs Reviewed Laboratory: WBC 7.2 X10^3/uL (3.6-10.0) 05/17/18 23:12 RBC 2.71 X10^6/uL (3.5-5.4) L 05/17/18 23:12 Hgb 9.3 g/dL (12.0-16.0) L 05/17/18 23:12 Hct 27.6 % (36.0-47.0) L 05/17/18 23:12 MCV 102.0 fL (80.0-100.0) H 05/17/18 23:12 MCH 34.3 pg (27.0-34.0) H 05/17/18 23:12 MCHC 33.7 g/dL (33.0-35.0) 05/17/18 23:12 RDW 13.2 % (11.6-16.5) 05/17/18 23:12 Plt Count 135 X10^3/uL (150.0-450.0) L 05/17/18 23:12 MPV 8.9 fL (7.4-11.0) 05/17/18 23:12 Neut % (Auto) 64.8 % (42.0-75.0) 05/17/18 23:12 Lymph % (Auto) 22.1 % (21.0-51.0) 05/17/18 23:12 [place] % (Auto) 9.2 % (0.0-13.0) 05/17/18 23:12 Eos % (Auto) 3.4 % (0.9-2.9) H 05/17/18 23:12 Baso % (Auto) 0.5 % (0.2-1.0) 05/17/18 23:12 Neut # (Auto) 4.7 x10^3/uL (2.2-4.8) 05/17/18 23:12 Lymph # (Auto) 1.6 X10^3/uL (1.3-2.9) 05/17/18 23:12 [place] # (Auto) 0.7 x10^3/uL (0.3-0.8) 05/17/18 23:12 Eos # (Auto) 0.2 x10^3/uL (0.0-0.2) 05/17/18 23:12 Baso # (Auto) 0.0 X10^3/uL (0.0-0.1) 05/17/18 23:12 Absolute Nucleated RBC 0.0 /100WBC 05/17/18 23:12 INR Target Range - 05/17/18 23:12 INR 1.18 (0.8-1.3) 05/17/18 23:12 APTT 40.5 SECONDS (22.9-36.5) H 05/17/18 23:12 PTT Comment - 05/17/18 23:12 Sodium 140 mmol/L (136-145) 05/17/18 23:12 Corrected Sodium 141 mmol/L (136-145) 05/17/18 23:12 Potassium 4.3 mmol/L (3.5-5.1) 05/17/18 23:12 Chloride 111 mmol/L (98-107) H 05/17/18 23:12 Carbon Dioxide 25.1 mmol/L (21-32) 05/17/18 23:12 BUN 29 mg/dL (7-18) H 05/17/18 23:12 Creatinine 1.56 mg/dL (0.55-1.02) H 05/17/18 23:12 Est GFR (MDRD) Af Amer 40 (>60) L 05/17/18 23:12 Est GFR (MDRD) Non-Af 33 (>60) L 05/17/18 23:12 Glucose 133 mg/dL (65-99) H 05/17/18 23:12 Lactic Acid 1.1 mmol/L (0.4-2.0) 05/17/18 23:12 Calcium 8.7 mg/dL (8.5-10.1) 05/17/18 23:12 Corrected Calcium 10.3 mg/dL (8.5-10.1) H 05/17/18 23:12 Magnesium 2.2 mg/dL (1.7-2.9) 05/17/18 23:12 Total Bilirubin 0.20 mg/dL (0.2-1.0) 05/17/18 23:12 AST 22 Units/L (15-37) 05/17/18 23:12 ALT 12 Units/L (12-78) 05/17/18 23:12 Alkaline Phosphatase 112 Units/L (46-116) 05/17/18 23:12 Creatine Kinase 135 Units/L (26-192) 05/17/18 23:12 CK-MB (CK-2) 3.5 ng/mL (0-4.0) 05/17/18 23:12 CK/CKMB % Calc 2.6 % (<4) 05/17/18 23:12 Troponin I 0.03 ng/mL (0-1.5) 05/17/18 23:12 Total Protein 5.8 g/dL (6.4-8.2) L 05/17/18 23:12 Albumin 2.0 g/dL (3.4-5.0) L 05/17/18 23:12 Globulin 3.8 g/dL (2.5-4.5) 05/17/18 23:12 Albumin/Globulin Ratio 0.5 Ratio (1.1-2.1) L 05/17/18 23:12 - Diagnosis Discharge Problem: Cellulitis of buttock, Pulmonary infiltrate, Hypercalcemia, Bradycardia with 41-50 beats per minute, Dehydration, COPD (chronic obstructive pulmonary disease) Altered mental status Qualifiers: Altered mental status type: transient alteration of awareness Qualified Code(s): R40.4 - Transient alteration of awareness Sacral decubitus ulcer Qualifiers: Pressure injury stage: unstageable Qualified Code(s): L89.150 - Pressure ulcer of sacral region, unstageable - Discharge Plan Disposition: ADMITTED INPATIENT Condition: Stable - Follow ups/Referrals Follow ups/Referrals: Mirza Nugent [Primary Care Provider] - 3 days - Instructions
[2018-05-17 23:22] LABS: BASOPHILS % (AUTO) 0.5 % (0.2-1.0); EOSINOPHILS # (AUTO) 0.2 x10^3/uL (0.0-0.2); EOSINOPHILS % (AUTO) 3.4 % (0.9-2.9); HEMATOCRIT 27.6 % (36.0-47.0); HEMOGLOBIN 9.3 g/dL (12.0-16.0); LYMPHOCYTES # (AUTO) 1.6 X10^3/uL (1.3-2.9); LYMPHOCYTES % (AUTO) 22.1 % (21.0-51.0); MEAN CORPUSCULAR HEMOGLOBIN 34.3 pg (27.0-34.0); MEAN CORPUSCULAR HGB CONC 33.7 g/dL (33.0-35.0); MEAN PLATELET VOLUME 8.9 fL (7.4-11.0); MONOCYTES # (AUTO) 0.7 x10^3/uL (0.3-0.8); MONOCYTES % (AUTO) 9.2 % (0.0-13.0); NEUTROPHILS # (AUTO) 4.7 x10^3/uL (2.2-4.8); NEUTROPHILS % (AUTO) 64.8 % (42.0-75.0); PLATELET COUNT 135 X10^3/uL (150.0-450.0); RED BLOOD COUNT 2.71 X10^6/uL (3.5-5.4); RED CELL DISTRIBUTION WIDTH 13.2 % (11.6-16.5); WHITE BLOOD COUNT 7.2 X10^3/uL (3.6-10.0)
[2018-05-17 23:36] LABS: LACTIC ACID 1.1 mmol/L (0.4-2.0)
[2018-05-17 23:43] LABS: CALCIUM 8.7 mg/dL (8.5-10.1); CARBON DIOXIDE 25.1 mmol/L (21-32); CREATININE 1.56 mg/dL (0.55-1.02); TROPONIN I 0.03 ng/mL (0-1.5)
[2018-05-17] MEDS: NS 1000 ML 1,000 ML IV SCH (23:43)
[2018-05-17 23:47] LABS: CKMB % 2.6 % (<4); COR CA(FOR HYPOALB) 10.3 mg/dL (8.5-10.1); CREATINE KINASE MB 3.5 ng/mL (0-4.0); MAGNESIUM 2.2 mg/dL (1.7-2.9); TOTAL PROTEIN 5.8 g/dL (6.4-8.2)
[2018-05-18] MEDS ORDERED: ROCEPHIN VIAL 1 GRAM IVP ONE (00:59)
[2018-05-18] MEDS ORDERED: ROCEPHIN VIAL 1 GRAM ONE (01:21)
[2018-05-18] MEDS ORDERED: DUONEB 0.5 MG/3 MG NEB ONE (02:06)
[2018-05-18] MEDS ORDERED: DUONEB 0.5 MG/3 MG ONE (02:11)
[2018-05-18] MEDS ORDERED: LEVAQUIN PREMIX IV 500 MG 500 MG/100 ML BAG IV ONE ×2 (02:12→02:24)
[2018-05-18] MEDS ORDERED: NS 1/2 1000 ML IV 1,000 ML IV SCH (03:00)
[2018-05-18] MEDS ORDERED: HumuLIN R SC PRN (03:01)
[2018-05-18] MEDS ORDERED: SALINE 3% 15 ML NEB TX ONE (03:10)
[2018-05-18] MEDS ORDERED: SALINE 3% 15 ML NEB TX NEB ONE (03:10)
[2018-05-18 03:30] LABS: BILIRUBIN,URINE NEGATIVE (NEGATIVE); BLOOD/HEMOGLOBIN,URINE 3+ (NEGATIVE); GLUCOSE, URINE NEGATIVE (NEGATIVE); KETONES,URINE NEGATIVE (NEGATIVE); LEUKOCYTE ESTERASE ,URINE 1+ (NEGATIVE); NITRITES,URINE NEGATIVE (NEGATIVE); PROTEIN,URINE 2+ (NEGATIVE); UROBILINOGEN,URINE NORMAL (NORMAL)
[2018-05-18 03:31] LABS: APPEARANCE,URINE CLEAR (CLEAR); COLOR,URINE YELLOW (YELLOW)
[2018-05-18 03:37] LABS: BACTERIA,URINE TRACE /HPF (NEGATIVE); CALCIUM OXALATE CRYSTALS,UR RARE /HPF (NEGATIVE); SQUAMOUS EPITHELIAL CELL,UR MODERATE /HPF (NEGATIVE)
[2018-05-18 03:38] LABS: HYALINE CASTS, URINE FEW /LPF (NEGATIVE)
[2018-05-18] MEDS ORDERED: DUONEB 0.5 MG/3 MG NEB PRN (03:39)
[2018-05-18] MEDS: ROBITUSSIN DM PO SCH ×4 (08:25→21:01)
[2018-05-18] MEDS ORDERED: NORCO 5/325 MG TAB PO PRN (11:05)
[2018-05-18] MEDS: XANAX PO SCH ×3 (11:33→21:52)
[2018-05-18] MEDS: NORCO 10/325 TAB PO PRN ×2 (11:33→17:33)
[2018-05-18] MEDS ORDERED: NORCO 10/325 TAB PO PRN (12:06)
--- NOTE | 2018-05-18 12:35 | DR.H&P ---
H&P - History & Physical for Day of: H&P Date: 05/18/18 - Chief Complaint Chief Complaint: AMS PER INTERMEDIATE STAFF, CELLULITIS TO SACRAL DECUBITUS - History of Present Illness History of Present Illness: 87 WF ER ADMISSION, PT IS RESIDENT OF [facility] AND WAS BROUGHT TO ER FOR REPORTS OF INCREASED CONFUSION, GENERALIZED WEAKNESS. PT HAD 2 SACRAL DECUBITUS, ONE WITH INCREASED DRAINAGE AND LOCALIZED REDNESS, PT CO PAIN TO AREA. PT WBC NORMAL ON ADMISSON, INCREASED CREAT, FAMILY REPORTS SHE HASNT BEEN DRINKING ENOUGH. PT HAS PMH OF OA, AFTT, HTN, DECUBITUS. PT ADMITTED FOR TREATMENT OF ACUTE ILLNESS - Past Medical History Past Medical History: Anxiety, Arthritis, Dementia, Depression, Migraines, GERD, Hypertension, Schizophrenia Additional Medical History: Right Breast Cancer in 1984 - Past Surgical History Surgical History: Hysterectomy, Mastectomy, Thyroidectomy - Family History Family Medical History: Diabetes Mellitus, Cancer, Hypertension - Social History Does patient currently use any type of tobacco product: No Have you used tobacco products in the last 12 months: No Type of Tobacco Use: None Does any household member use tobacco: No Alcohol Use: None Drug Use: None - Medications Home Medications: codeine Allergy (Verified 05/16/17 22:24) CONTINUE taking the following medications carboxymethylcellulose sodium [Refresh Tears] 1 drp OPHTHALMIC (EYE) TID 05/18/18 [History] lisinopril 5 mg PO DAILY 05/18/18 [History] pantoprazole 40 mg PO DAILY 05/18/18 [History] sulfamethoxazole-trimethoprim [Bactrim DS] 1 tab PO 05/18/18 [History] - Review of Systems Constitutional: Weakness Eyes: No Symptoms Reported ENT: No Symptoms Reported Respiratory: Shortness of Breath Cardiovascular: denies: Edema Gastrointestinal: Nausea Genitourinary: No Symptoms Reported Musculoskeletal: Back Pain Skin: Wound Neurological: Weakness - Physical Exam Vital Signs: Temperature 98.0 F Pulse Rate [Left Brachial] 80 Pulse Rate 46 Respiratory Rate 18 Blood Pressure [Left Calf] 104/53 Blood Pressure [Right Arm] 144/82 Blood Pressure [Left Arm] 135/60 Blood Pressure 126/61 O2 Sat by Pulse Oximetry 99 Oriented: Person Eyes: Normal Ear: Normal Nose: Normal Throat: Dry Respiratory: RLL Diminished, LLL Diminished Cardiovascular: Normal. negative: Edema : Normal Auscultation: Bowel Sounds: Normal Palpation: Normal Tenderness: Normal Skin: Red, Tender, Wound (STAGE 2 SACRAL PRESSURE ULCERATION WITH LOCALIZED REDNESS, STAGE 3 PRESSURE ULCER WITH SCANT D/C AND LOCALIZED REDNESS, SEVERE TENDERNESS) Musculoskeletal: Back:Thoracic, Back:Lumbar, Motor Deficit, Instability Psychiatric: Anxiety Affect: Anxious Speech Pattern: Clear, Appropriate - Assessment/Plan (1) Altered mental status Qualifiers: Altered mental status type: transient alteration of awareness Qualified Code(s): R40.4 - Transient alteration of awareness Status: Acute Plan: MONITOR, ADMIT. WOUND CULTURE, CONSULT DR SANTIAGO. ADMISSON LABS I & OS, REPEAT AM CXR AND LABS. UA, VERIFY HOME MEDS. HOLD CATAPRES PATCH DUE TO BRADYCARDIA- WEAKNESS MAY PT SYMPTOMATIC MANFRED. IV ABTX, WOUND CARE, TURN Q 2 HRS, PAIN CONTROL (2) Sacral decubitus ulcer Qualifiers: Pressure injury stage: unstageable Qualified Code(s): L89.150 - Pressure ulcer of sacral region, unstageable Status: Acute (3) Cellulitis of buttock Status: Acute (4) Hypertension Status: Chronic (5) GERD (gastroesophageal reflux disease) Status: Chronic (6) Arthritis Status: Chronic (7) Anxiety Status: Chronic (8) Bradycardia with 41-50 beats per minute Status: Acute Plan: HOLD CATAPRES PATCH. TELEMETRY, EKG ON ADMISSON. BP MONITORING - Allergies Allergies/Adverse Reactions: Allergies Allergy/AdvReac Type Severity Reaction Status Date / Time codeine Allergy Verified 05/16/17 22:24
[2018-05-18] MEDS: NS 1000 ML 1,000 ML IV SCH ×2 (12:55→22:16)
[2018-05-18] MEDS ORDERED: XANAX PO SCH (13:00)
[2018-05-18] MEDS ORDERED: PHARMACY CONSULT - DOSE _____ XX SCH (13:00)
[2018-05-18] MEDS ORDERED: CATAPRES-TTS-2 TD SCH (13:00)
[2018-05-18] MEDS ORDERED: PATIENT'S HOME MEDICATION (Carboxymethylcellulose Sodium [Refresh Tears] 1 DROP) OP SCH (14:00)
[2018-05-18] MEDS: NEURONTIN CAP 300 MG PO SCH ×2 (15:31→21:10)
[2018-05-18] MEDS ORDERED: HYDROGEN PEROXIDE 3% ONE (17:02)
[2018-05-18] MEDS: PATIENT'S HOME MEDICATION (Carboxymethylcellulose Sodium [Refresh Tears] 1 DROP) OP SCH ×2 (17:27→21:10)
[2018-05-18] MEDS ORDERED: LEXAPRO ONE (20:08)
[2018-05-18] MEDS ORDERED: NS 100 ML IV + SPIKE MINIBAG* 100 ML IV ONE (20:53)
[2018-05-18] MEDS: ROCEPHIN VIAL 1 GRAM IVP SCH (20:55)
[2018-05-18] MEDS: CRESTOR TAB 10 MG PO SCH (20:56)
[2018-05-18] MEDS: COLACE CAP 100 MG PO SCH (20:56)
[2018-05-18] MEDS: ZANTAC PO SCH (20:57)
[2018-05-18] MEDS: REQUIP PO SCH (20:58)
[2018-05-18] MEDS: LEXAPRO PO SCH (20:58)
[2018-05-18] MEDS: NAMENDA TAB 10 MG PO SCH (20:59)
[2018-05-18] MEDS: PATIENT'S HOME MEDICATION (Amino Acids-Protein Hydrolys [Pro-Stat Awc] 30 ML) PO SCH (21:00)
[2018-05-18] MEDS: MIRALAX POWDER (1 DOSE 17 G) PO SCH (21:00)
[2018-05-18] MEDS ORDERED: NAMENDA TAB 10 MG PO SCH (21:00)
[2018-05-18] MEDS ORDERED: ESCITALOPRAM OXALATE 5 MG PO SCH (21:00)
[2018-05-18] MEDS: TEFLARO 400 MG in NS 50 ML IV 50 ML IV SCH (22:15)
[2018-05-19] MEDS: NS 1000 ML 1,000 ML IV SCH ×2 (04:36→18:05)
[2018-05-19] MEDS: NEURONTIN CAP 300 MG PO SCH ×3 (05:05→21:08)
[2018-05-19] MEDS: PATIENT'S HOME MEDICATION (Carboxymethylcellulose Sodium [Refresh Tears] 1 DROP) OP SCH (05:05)
[2018-05-19 05:54] LABS: BASOPHILS % (AUTO) 0.4 % (0.2-1.0); EOSINOPHILS # (AUTO) 0.5 x10^3/uL (0.0-0.2); EOSINOPHILS % (AUTO) 5.1 % (0.9-2.9); HEMATOCRIT 31.8 % (36.0-47.0); HEMOGLOBIN 10.5 g/dL (12.0-16.0); LYMPHOCYTES # (AUTO) 1.6 X10^3/uL (1.3-2.9); LYMPHOCYTES % (AUTO) 15.4 % (21.0-51.0); MEAN CORPUSCULAR HEMOGLOBIN 33.7 pg (27.0-34.0); MEAN CORPUSCULAR HGB CONC 32.8 g/dL (33.0-35.0); MEAN CORPUSCULAR VOLUME 102.6 fL (80.0-100.0); MEAN PLATELET VOLUME 9.5 fL (7.4-11.0); MONOCYTES # (AUTO) 0.9 x10^3/uL (0.3-0.8); MONOCYTES % (AUTO) 8.5 % (0.0-13.0); NEUTROPHILS # (AUTO) 7.3 x10^3/uL (2.2-4.8); NEUTROPHILS % (AUTO) 70.6 % (42.0-75.0); PLATELET COUNT 138 X10^3/uL (150.0-450.0); RED CELL DISTRIBUTION WIDTH 13.6 % (11.6-16.5); WHITE BLOOD COUNT 10.3 X10^3/uL (3.6-10.0)
[2018-05-19] MEDS: NORCO 10/325 TAB PO PRN ×2 (06:02→19:30)
[2018-05-19 06:18] LABS: ALANINE AMINOTRANSFERASE 16 Units/L (12-78); ALBUMIN 2.1 g/dL (3.4-5.0); ALKALINE PHOSPHATASE 114 Units/L (46-116); BLOOD UREA NITROGEN 25 mg/dL (7-18); CALCIUM 8.4 mg/dL (8.5-10.1); CARBON DIOXIDE 24.1 mmol/L (21-32); CHLORIDE 111 mmol/L (98-107); COR CA(FOR HYPOALB) 9.9 mg/dL (8.5-10.1); CREATININE 1.35 mg/dL (0.55-1.02); SODIUM 143 mmol/L (136-145); TOTAL PROTEIN 6.4 g/dL (6.4-8.2); eGFR NON BLACK RACES 39 (>60)
[2018-05-19 06:51] LABS: ASPARTATE AMINO TRANSFERASE 31 Units/L (15-37)
--- NOTE | 2018-05-19 08:30 | RAD ---
HISTORY: Dyspnea Study: Single-view chest Comparison: May 17, 2018 and April 05, 2018 Findings: Aortic atherosclerosis is noted. The trachea is midline. The cardiac silhouette is unremarkable. There are stable to minimally improved patchy right lung nodular opacities for which clinical and radiographic follow-up to clearing are recommended. There is no new lobar mass or consolidation. There is no effusion or pneumothorax. The bony thorax is grossly unremarkable. IMPRESSION: Persistent but slightly improved patchy nodular right lung opacities. Reported By:
[2018-05-19] MEDS ORDERED: MILK OF MAGNESIA PO SCH (09:00)
[2018-05-19] MEDS ORDERED: MOBIC TAB 15 MG PO SCH (09:00)
[2018-05-19] MEDS ORDERED: MEMANTINE 5 MG PO SCH (09:00)
[2018-05-19] MEDS ORDERED: [UNRECOGNIZED DRUG - OTHER] PO SCH (09:00)
[2018-05-19] MEDS: ROBITUSSIN DM PO SCH ×4 (09:04→20:58)
[2018-05-19] MEDS: VITAMIN C PO SCH (09:04)
[2018-05-19] MEDS: MOBIC TAB 15 MG PO SCH (09:04)
[2018-05-19] MEDS: ZESTRIL TAB 5 MG PO SCH (09:05)
[2018-05-19] MEDS: ASPIRIN EC 81 MG PO SCH (09:05)
[2018-05-19] MEDS: XANAX PO SCH ×2 (09:05→20:58)
[2018-05-19] MEDS: ZANTAC PO SCH ×2 (09:05→20:58)
[2018-05-19] MEDS: COLACE CAP 100 MG PO SCH ×2 (09:05→20:57)
[2018-05-19] MEDS: PROTONIX TAB 40 MG PO SCH (09:05)
[2018-05-19] MEDS: NAMENDA TAB 10 MG PO SCH ×2 (09:05→20:58)
[2018-05-19] MEDS: PLAVIX PO SCH (09:06)
[2018-05-19] MEDS: TEFLARO 400 MG in NS 50 ML IV 50 ML IV SCH ×2 (09:53→20:59)
[2018-05-19] MEDS: PATIENT'S HOME MEDICATION (Amino Acids-Protein Hydrolys [Pro-Stat Awc] 30 ML) PO SCH (10:33)
[2018-05-19] MEDS ORDERED: LEXAPRO ONE (19:57)
[2018-05-19] MEDS: LEXAPRO PO SCH (20:57)
[2018-05-19] MEDS: CRESTOR TAB 10 MG PO SCH (20:58)
[2018-05-19] MEDS: REQUIP PO SCH (20:58)
[2018-05-19] MEDS: MIRALAX POWDER (1 DOSE 17 G) PO SCH (20:59)
[2018-05-19] MEDS: ROCEPHIN VIAL 1 GRAM IVP SCH (20:59)
[2018-05-20] MEDS ORDERED: ZOFRAN TAB 4 MG SL PRN (01:13)
[2018-05-20] MEDS: NEURONTIN CAP 300 MG PO SCH ×3 (05:24→21:01)
[2018-05-20] MEDS: NORCO 10/325 TAB PO PRN ×3 (05:24→20:59)
[2018-05-20 06:17] LABS: BASOPHILS % (AUTO) 0.7 % (0.2-1.0); EOSINOPHILS # (AUTO) 0.4 x10^3/uL (0.0-0.2); EOSINOPHILS % (AUTO) 5.3 % (0.9-2.9); HEMATOCRIT 28.7 % (36.0-47.0); HEMOGLOBIN 9.5 g/dL (12.0-16.0); LYMPHOCYTES # (AUTO) 1.7 X10^3/uL (1.3-2.9); MEAN CORPUSCULAR HGB CONC 33.2 g/dL (33.0-35.0); MEAN CORPUSCULAR VOLUME 102.7 fL (80.0-100.0); MEAN PLATELET VOLUME 8.8 fL (7.4-11.0); MONOCYTES # (AUTO) 0.7 x10^3/uL (0.3-0.8); MONOCYTES % (AUTO) 10.4 % (0.0-13.0); NEUTROPHILS # (AUTO) 4.1 x10^3/uL (2.2-4.8); NEUTROPHILS % (AUTO) 59.6 % (42.0-75.0); PLATELET COUNT 140 X10^3/uL (150.0-450.0); RED BLOOD COUNT 2.79 X10^6/uL (3.5-5.4); RED CELL DISTRIBUTION WIDTH 13.5 % (11.6-16.5); WHITE BLOOD COUNT 6.9 X10^3/uL (3.6-10.0)
[2018-05-20 06:28] LABS: ALANINE AMINOTRANSFERASE 16 Units/L (12-78); ALBUMIN 1.9 g/dL (3.4-5.0); ALKALINE PHOSPHATASE 97 Units/L (46-116); ASPARTATE AMINO TRANSFERASE 40 Units/L (15-37); BLOOD UREA NITROGEN 24 mg/dL (7-18); CALCIUM 8.4 mg/dL (8.5-10.1); CARBON DIOXIDE 25.6 mmol/L (21-32); CHLORIDE 112 mmol/L (98-107); COR CA(FOR HYPOALB) 10.1 mg/dL (8.5-10.1); CREATININE 1.19 mg/dL (0.55-1.02); SODIUM 144 mmol/L (136-145); TOTAL PROTEIN 5.6 g/dL (6.4-8.2); eGFR NON BLACK RACES 45 (>60)
--- NOTE | 2018-05-20 06:47 | RAD ---
HISTORY: Shortness of breath Study: Chest AP portable Comparison: 05/19/2018, 05/17/2018 Findings: The heart is within normal limits in size. The jarrett are normal. No definite acute infiltrates or pleural effusions are identified. The right lung is now clear. The bony thorax is unremarkable with the exception of glenohumeral degenerative joint disease on the left. IMPRESSION: Lungs now clear Reported By:
[2018-05-20] MEDS: ZESTRIL TAB 5 MG PO SCH (09:13)
[2018-05-20] MEDS: XANAX PO SCH ×2 (09:13→21:00)
[2018-05-20] MEDS: ZANTAC PO SCH ×2 (09:13→21:00)
[2018-05-20] MEDS: COLACE CAP 100 MG PO SCH ×2 (09:13→21:00)
[2018-05-20] MEDS: ASPIRIN EC 81 MG PO SCH (09:13)
[2018-05-20] MEDS: VITAMIN C PO SCH (09:13)
[2018-05-20] MEDS: PROTONIX TAB 40 MG PO SCH (09:14)
[2018-05-20] MEDS: PLAVIX PO SCH (09:14)
[2018-05-20] MEDS: NAMENDA TAB 10 MG PO SCH ×2 (09:14→21:01)
[2018-05-20] MEDS: ROBITUSSIN DM PO SCH ×2 (09:14→13:17)
[2018-05-20] MEDS: MOBIC TAB 15 MG PO SCH (09:15)
[2018-05-20] MEDS: TEFLARO 400 MG in NS 50 ML IV 50 ML IV SCH ×2 (09:49→21:15)
--- NOTE | 2018-05-20 19:15 | PCM.PROG ---
Progress Note - Progress Note for Day of Date of Exam: 05/20/18 - Subjective Subjective: WAS ADMITTED ON 05/18/18 FOR ALTERED MENTAL STATUS, A SACRAL DECUBITUS, CELLULITIS OF THE SACRUM, AND POSSIBLE PNEUMONIA. WITH CONSULTED AND RECOMMENDED WOUND VAC. TODAY, SHE IS LYING IN BED WITH EYES CLOSED ON MORNING ROUNDS. SHE AWAKENS TO VERBAL STIMULI. SHE IS ORIENTED TO SELF AND SITUATION. SHE COMPLAINTS OF PAIN TO THE BUTTOCK WELL SHORTNESS OF BREATH. ON EXAMINATION, HEART IS REGULAR IN RATE AND RHYTHM. BILATERAL LUNGS ARE NOTED WITH DIMINISHED LUNG SOUNDS THROUGHOUT. ABDOMEN IS ROUND, SOFT, AND NOTED WITH NORMAL BOWEL SOUNDS IN ALL QUADRANTS. THERE IS A STAGE III ULCER NOTED TO THE SACRUM WITH A LARGE AREA OF TUNNELING AND ASSICIATED CELLULITIS OF THE SURROUNDING SKIN. HER VITALS THIS MORNING ARE 98.7-90-20-90%NC-179/77. LABS WERE OBTAINED. ABNORMAL LAB VALUES INCLUDE THE FOLLOWING: WBC 2.79, HGB 9.5, HCT 28.7, CHLORIDE 112, BUN 24, CREATININE 1.19, CALCIUM 8.4, AST 40, TOTAL PROTEIN 5.6, ALBUMIN 1.9. A CHEST XRAY WAS OBTAINED THIS MORNING AND REVEALED: LUNGS NOW CLEAR. WOUND IS CURRENTLY BEING PACKED AND SHE IS RECEIVING TEFLARO 400MG IV Q12H AND ROCEPHIN 1GM IV HS. WE WILL CONTINUE WITH CURRENT PLAN OF CARE TODAY. OTHERWISE, WE WILL FOLLOW-UP WITH AM LABS AND CONTINUE TO MONITOR PATIENT. - Past Medical Family Social History Past Med/Fam/Surg Hx: No changes since H&P Allergies: Allergies codeine Allergy (Verified 05/16/17 22:24) - Review of Systems ROS: No change since H&P - Vital Signs and I&O's Vital Signs: Temperature 99.5 F Pulse Rate [Left Brachial] 83 Pulse Rate 90 Respiratory Rate 18 Blood Pressure [Left Calf] 165/71 Blood Pressure [Right Arm] 154/84 Blood Pressure [Left Arm] 116/54 Blood Pressure 126/61 O2 Sat by Pulse Oximetry 99 Intake and Output: Intake & Output 05/18/18 05/19/18 05/20/18 05/21/18 12:59 11:59 11:59 11:59 Intake Total 1938 / 1938 360 / 360 Output Total 425 / 425 400 / 400 Balance 1513 / 1513 -40 / -40 - Physical Exam Oriented: Person Eyes: Normal Ear: Normal Nose: Normal Throat: Dry Respiratory: Generalized, Diminished Cardiovascular: Normal. negative: S3, S4, Murmur, Edema : Normal Auscultation: Bowel Sounds: Normal Palpation: Normal Tenderness: Normal Skin: Red, Tender, Wound (STAGE 2 SACRAL PRESSURE ULCERATION WITH LOCALIZED REDNESS, STAGE 3 PRESSURE ULCER WITH SCANT D/C AND LOCALIZED REDNESS, SEVERE TENDERNESS) Musculoskeletal: Back:Thoracic, Back:Lumbar, Motor Deficit, Instability Psychiatric: Anxiety Affect: Anxious Speech Pattern: Clear, Appropriate - Laboratory and Diagnostics Result Diagrams: 05/20/18 05:43 05/20/18 05:43 Labs: 05/18/18 17:19 Buttock Wound Culture - Preliminary 05/18/18 17:19 Buttock Gram Stain - Final Laboratory WBC 6.9 X10^3/uL (3.6-10.0) 05/20/18 05:43 RBC 2.79 X10^6/uL (3.5-5.4) L 05/20/18 05:43 Hgb 9.5 g/dL (12.0-16.0) L 05/20/18 05:43 Hct 28.7 % (36.0-47.0) L 05/20/18 05:43 MCV 102.7 fL (80.0-100.0) H 05/20/18 05:43 MCH 34.0 pg (27.0-34.0) 05/20/18 05:43 MCHC 33.2 g/dL (33.0-35.0) 05/20/18 05:43 RDW 13.5 % (11.6-16.5) 05/20/18 05:43 Plt Count 140 X10^3/uL (150.0-450.0) L 05/20/18 05:43 MPV 8.8 fL (7.4-11.0) 05/20/18 05:43 Neut % (Auto) 59.6 % (42.0-75.0) 05/20/18 05:43 Lymph % (Auto) 24.0 % (21.0-51.0) 05/20/18 05:43 [place] % (Auto) 10.4 % (0.0-13.0) 05/20/18 05:43 Eos % (Auto) 5.3 % (0.9-2.9) H 05/20/18 05:43 Baso % (Auto) 0.7 % (0.2-1.0) 05/20/18 05:43 Neut # (Auto) 4.1 x10^3/uL (2.2-4.8) 05/20/18 05:43 Lymph # (Auto) 1.7 X10^3/uL (1.3-2.9) 05/20/18 05:43 [place] # (Auto) 0.7 x10^3/uL (0.3-0.8) 05/20/18 05:43 Eos # (Auto) 0.4 x10^3/uL (0.0-0.2) H 05/20/18 05:43 Baso # (Auto) 0.0 X10^3/uL (0.0-0.1) 05/20/18 05:43 Absolute Nucleated RBC 0.0 /100WBC 05/20/18 05:43 INR Target Range - 05/17/18 23:12 INR 1.18 (0.8-1.3) 05/17/18 23:12 APTT 40.5 SECONDS (22.9-36.5) H 05/17/18 23:12 PTT Comment - 05/17/18 23:12 Sodium 144 mmol/L (136-145) 05/20/18 05:43 Corrected Sodium TNP 05/20/18 05:43 Potassium 4.4 mmol/L (3.5-5.1) 05/20/18 05:43 Chloride 112 mmol/L (98-107) H 05/20/18 05:43 Carbon Dioxide 25.6 mmol/L (21-32) 05/20/18 05:43 BUN 24 mg/dL (7-18) H 05/20/18 05:43 Creatinine 1.19 mg/dL (0.55-1.02) H 05/20/18 05:43 Est GFR (MDRD) Af Amer 55 (>60) L 05/20/18 05:43 Est GFR (MDRD) Non-Af 45 (>60) L 05/20/18 05:43 Glucose 84 mg/dL (65-99) 05/20/18 05:43 POC Glucose (mg/dL) 94 mg/dL (65-99) 05/18/18 05:44 Lactic Acid 1.1 mmol/L (0.4-2.0) 05/17/18 23:12 Calcium 8.4 mg/dL (8.5-10.1) L 05/20/18 05:43 Corrected Calcium 10.1 mg/dL (8.5-10.1) 05/20/18 05:43 Magnesium 2.2 mg/dL (1.7-2.9) 05/17/18 23:12 Total Bilirubin 0.20 mg/dL (0.2-1.0) 05/20/18 05:43 AST 40 Units/L (15-37) H 05/20/18 05:43 ALT 16 Units/L (12-78) 05/20/18 05:43 Alkaline Phosphatase 97 Units/L (46-116) 05/20/18 05:43 Creatine Kinase 135 Units/L (26-192) 05/17/18 23:12 CK-MB (CK-2) 3.5 ng/mL (0-4.0) 05/17/18 23:12 CK/CKMB % Calc 2.6 % (<4) 05/17/18 23:12 Troponin I 0.03 ng/mL (0-1.5) 05/17/18 23:12 Total Protein 5.6 g/dL (6.4-8.2) L 05/20/18 05:43 Albumin 1.9 g/dL (3.4-5.0) L 05/20/18 05:43 Globulin 3.7 g/dL (2.5-4.5) 05/20/18 05:43 Albumin/Globulin Ratio 0.5 Ratio (1.1-2.1) L 05/20/18 05:43 Specimen Type Catherized urine 05/18/18 03:19 Urine Color Yellow (YELLOW) 05/18/18 03:19 Urine Appearance Clear (CLEAR) 05/18/18 03:19 Urine pH 6.0 (5.0 - 8.0) 05/18/18 03:19 Ur Specific [place] 1.020 (1.000-1.030) 05/18/18 03:19 Urine Protein 2+ (NEGATIVE) 05/18/18 03:19 Urine Glucose (UA) Negative (NEGATIVE) 05/18/18 03:19 Urine Ketones Negative (NEGATIVE) 05/18/18 03:19 Urine Occult Blood 3+ (NEGATIVE) 05/18/18 03:19 Urine Nitrite Negative (NEGATIVE) 05/18/18 03:19 Urine Bilirubin Negative (NEGATIVE) 05/18/18 03:19 Urine Urobilinogen Normal (NORMAL) 05/18/18 03:19 Ur Leukocyte Esterase 1+ (NEGATIVE) 05/18/18 03:19 Urine RBC 10-20 /HPF (NONE SEEN) 05/18/18 03:19 Urine WBC 3-5 /HPF (NONE SEEN) 05/18/18 03:19 Ur Squamous Epith Cells Moderate /HPF (NEGATIVE) 05/18/18 03:19 Calcium Oxalate Crystal Rare /HPF (NEGATIVE) 05/18/18 03:19 Urine Bacteria Trace /HPF (NEGATIVE) 05/18/18 03:19 Hyaline Casts Few /LPF (NEGATIVE) 05/18/18 03:19 Ur Culture Indicated? No/not indicated 05/18/18 03:19 - Plan (1) Altered mental status Status: Acute Qualifiers: Altered mental status type: transient alteration of awareness Qualified Code(s): R40.4 - Transient alteration of awareness Plan: IV ABTX, WOUND CARE, TURN Q 2 HRS, PAIN CONTROL (2) Sacral decubitus ulcer Status: Acute Qualifiers: Pressure injury stage: stage 3 Qualified Code(s): L89.153 - Pressure ulcer of sacral region, stage 3 Plan: IV ANTIBIOTICS, WOUND CARE, SET UP WOUND VAC, CONTINUE TO MONITOR (3) Cellulitis of buttock Status: Acute Plan: IV ANTIBIOTICS, WOUND CARE, CONTINUE TO MONITOR
[2018-05-20] MEDS ORDERED: LEXAPRO ONE (19:59)
[2018-05-20] MEDS: MIRALAX POWDER (1 DOSE 17 G) PO SCH (20:59)
[2018-05-20] MEDS: ROCEPHIN VIAL 1 GRAM IVP SCH (20:59)
[2018-05-20] MEDS: LEXAPRO PO SCH (20:59)
[2018-05-20] MEDS: REQUIP PO SCH (21:00)
[2018-05-20] MEDS: CRESTOR TAB 10 MG PO SCH (21:01)
[2018-05-20] MEDS: NS 1000 ML 1,000 ML IV SCH (21:13)
[2018-05-21] MEDS: NEURONTIN CAP 300 MG PO SCH ×2 (05:22→14:36)
[2018-05-21 06:43] LABS: ALANINE AMINOTRANSFERASE 17 Units/L (12-78); ALKALINE PHOSPHATASE 97 Units/L (46-116); ASPARTATE AMINO TRANSFERASE 36 Units/L (15-37); BASOPHILS # (AUTO) 0.1 X10^3/uL (0.0-0.1); BASOPHILS % (AUTO) 0.8 % (0.2-1.0); BLOOD UREA NITROGEN 15 mg/dL (7-18); CALCIUM 8.6 mg/dL (8.5-10.1); CARBON DIOXIDE 24.4 mmol/L (21-32); CHLORIDE 111 mmol/L (98-107); COR CA(FOR HYPOALB) 10.2 mg/dL (8.5-10.1); CREATININE 1.02 mg/dL (0.55-1.02); EOSINOPHILS # (AUTO) 0.3 x10^3/uL (0.0-0.2); EOSINOPHILS % (AUTO) 3.5 % (0.9-2.9); HEMATOCRIT 30.8 % (36.0-47.0); HEMOGLOBIN 10.2 g/dL (12.0-16.0); LYMPHOCYTES # (AUTO) 1.2 X10^3/uL (1.3-2.9); LYMPHOCYTES % (AUTO) 16.3 % (21.0-51.0); MEAN CORPUSCULAR HEMOGLOBIN 33.8 pg (27.0-34.0); MEAN CORPUSCULAR HGB CONC 33.1 g/dL (33.0-35.0); MEAN CORPUSCULAR VOLUME 102.3 fL (80.0-100.0); MEAN PLATELET VOLUME 9.1 fL (7.4-11.0); MONOCYTES # (AUTO) 0.6 x10^3/uL (0.3-0.8); MONOCYTES % (AUTO) 9.1 % (0.0-13.0); NEUTROPHILS % (AUTO) 70.3 % (42.0-75.0); PLATELET COUNT 141 X10^3/uL (150.0-450.0); RED BLOOD COUNT 3.01 X10^6/uL (3.5-5.4); RED CELL DISTRIBUTION WIDTH 13.2 % (11.6-16.5); SODIUM 144 mmol/L (136-145); WHITE BLOOD COUNT 7.2 X10^3/uL (3.6-10.0); eGFR NON BLACK RACES 54 (>60)
[2018-05-21] MEDS ORDERED: ZINC 220 MG PO SCH (09:00)
[2018-05-21] MEDS ORDERED: CATAPRES-TTS-3 TD SCH (09:00)
[2018-05-21] MEDS ORDERED: ZINC SULFATE PO SCH (10:00)
[2018-05-21] MEDS: COLACE CAP 100 MG PO SCH (10:26)
[2018-05-21] MEDS: ZANTAC PO SCH (10:26)
[2018-05-21] MEDS: ZESTRIL TAB 5 MG PO SCH (10:26)
[2018-05-21] MEDS: ASPIRIN EC 81 MG PO SCH (10:26)
[2018-05-21] MEDS: PLAVIX PO SCH (10:27)
[2018-05-21] MEDS: MOBIC TAB 15 MG PO SCH (10:27)
[2018-05-21] MEDS: XANAX PO SCH (10:27)
[2018-05-21] MEDS: VITAMIN C PO SCH (10:28)
[2018-05-21] MEDS: PROTONIX TAB 40 MG PO SCH (10:28)
[2018-05-21] MEDS: NAMENDA TAB 10 MG PO SCH (10:28)
[2018-05-21] MEDS: TEFLARO 400 MG in NS 50 ML IV 50 ML IV SCH (10:49)
[2018-05-21] MEDS ORDERED: NORVASC TAB 5 MG PO ONE (15:07)
[2018-05-21 16:21] VITALS: BP 183/77
[2018-05-21] MEDS ORDERED: ARICEPT TAB 10 MG PO SCH (21:00)
[2018-05-21] MEDS ORDERED: TEFLARO 600 MG in NS 50 ML IV 50 ML IV SCH (21:00)
[2018-05-21] MEDS ORDERED: TOPAMAX PO SCH (21:00)
--- NOTE | 2018-06-25 01:25 | DR.CARTERD ---
- Discharge Summary for: Discharge Summary for Date of:: 05/21/18 - Admission Date Date of Admission: 05/18/18 - Admission Diagnoses Admission Diagnosis: (1) Cellulitis of buttock (2) Sacral decubitus ulcer (3) Altered mental status (4) Hypertension (5) GERD (gastroesophageal reflux disease) (6) Arthritis (7) Anxiety (8) Bradycardia with 41-50 beats per minute - Discharge Date Discharge Date: 05/21/18 - Discharge Diagnoses Discharge Diagnosis: (1) Cellulitis of buttock (2) Sacral decubitus ulcer (3) Altered mental status - Hospital Course Hospital Course: DAY ONE, PATIENT WAS AN 87 YEAR OLD WF ER ADMISSION, PT IS RESIDENT OF [facility] AND WAS BROUGHT TO ER FOR REPORTS OF INCREASED CONFUSION, GENERALIZED WEAKNESS. PT HAD 2 SACRAL DECUBITUS, ONE WITH INCREASED DRAINAGE AND LOCALIZED REDNESS, PT CO PAIN TO AREA. PT WBC NORMAL ON ADMISSON, INCREASED CREAT, FAMILY REPORTED SHE HASNT BEEN DRINKING ENOUGH. PT HAS PMH OF OA, AFTT, HTN, DECUBITUS. PT ADMITTED FOR TREATMENT OF ACUTE ILLNESS. WE CONTINUED TO MONITOR. DAY TWO, The nursing staff was concerned that she may be confused from cellulitis. Also they reported possible pneumonia with a right lung opacity. The patient was started on IV antibiotics and was consulted by Dr. Brizuela for her sacral decubitus. At this time, he recommended possible wound VAC and we had Case Management contact the shelter to see if we can obtain long-term wound care with a wound VAC when she is stable for discharge. The patient has had complaints of severe pain to her sacral and buttocks area. She stated that it is stable this morning. Her white count was 10.3, hemoglobin 10.5. The patients BUN was 25 and creatine improved to 1.35. She was alert, awake, and with it today. The patient denied pain this morning. She did have a urine with +3 blood and it was a catheterized urine and not indicated for culture. We did collect a wound culture which is showing no growth at this time. The patient also had treatment with some Robitussin, as well as respiratory consult for jet nebulizers as needed. Shee was resting quietly this morning, awakened easily. The patient was oriented to self and situation. She complained of some mild lower back and buttock pain that is controlled. The patient was refusing pain medication this morning. Lungs were slightly diminished to her bases, otherwise no rales or rhonchi. Heart rate revealed regular rate of rhythm. Abdomen was soft and nontender. Bowel sounds were present. Day Four, Patient was alert and oriented during morning rounds. she was sitting up in bed. Vital signs were stable. labs were in normal range for patient. patient voiced no complaints this am. we planned for discharge back to [facility] with wound vac. Instructions were discussed with patient and family, both voiced understanding. patient discharged to [facility] in stable condition. - Discharge Medications Discharge Medications: Home Medication List lisinopril 5 mg PO DAILY 05/18/18 [History] pantoprazole 40 mg PO DAILY 05/18/18 [History] clonidine 0.3 mg TRANSDERMAL QWEEK 05/21/18 [History] ipratropium-albuterol 1 ea NEB TID #50 units 05/21/18 [Rx] ondansetron HCl [Zofran] 4 mg PO TID PRN #30 tab 05/21/18 [Rx] sulfamethoxazole-trimethoprim [Bactrim DS] 1 tab PO BID #20 tab 05/21/18 [Rx] Prescriptions: ipratropium-albuterol Mirza Nugent ondansetron HCl [Zofran] Mirza Nugent sulfamethoxazole-trimethoprim [Bactrim DS] Mirza Nugent Ambulatory Orders gabapentin 300 mg PO TID 09/16/15 docusate sodium 100 mg PO BID #60 cap 10/01/15 polyethylene glycol 3350 17 gm PO HS #1 bottle 10/01/15 alprazolam 1 tab PO BID 05/16/17 ascorbic acid (vitamin C) [Vitamin C] 500 mg PO DAILY 05/16/17 carboxymethylcellulose sodium [Refresh Tears] 1 drp OPHTHALMIC (EYE) TID 05/16/17 donepezil 10 mg PO HS 05/16/17 escitalopram oxalate [Lexapro] 5 mg PO HS 05/16/17 food supplemt, lactose-reduced [Ensure Enlive] 8 oz PO DAILY 05/16/17 hydrocodone-acetaminophen 1 tab PO Q8H PRN 05/16/17 meloxicam 15 mg PO DAILY 05/16/17 memantine [Namenda] 10 mg PO HS 05/16/17 memantine [Namenda] 5 mg PO DAILY 05/16/17 ranitidine HCl [Zantac] 300 mg PO BID 05/16/17 ropinirole 1 mg PO HS 05/16/17 topiramate 1 tab PO HS 05/16/17 zinc 220 mg PO DAILY 05/16/17 ziprasidone HCl [Geodon] 20 mg PO HS 05/16/17 aspirin [Aspir-Low] 81 mg PO DAILY #90 tab 05/18/17 clopidogrel [Plavix] 75 mg PO DAILY #30 tab 05/18/17 rosuvastatin 10 mg PO HS #30 tab 05/18/17 amino acids-protein hydrolys [Pro-Stat AWC] 30 ml PO BID 10/05/17 - Discharge Disposition Discharge Disposition: we will follow up with patient at [facility] in one week.
== END 2018-05-21 15:55 ==
LOC: ER 22:19 → MED/SURG 22:19
PROVIDERS: ADMIT Internal Medicine; ATTEND Internal Medicine
DX: Z74.01 Bed confinement status; F41.8 Other specified anxiety disorders; J18.8 Other pneumonia, unspecified organism; R00.1 Bradycardia, unspecified; R40.4 Transient alteration of awareness; I25.10 Atherosclerotic heart disease of native coronary artery without angina pectoris; R79.1 Abnormal coagulation profile; I12.9 Hypertensive chronic kidney disease with stage 1 through stage 4 chronic kidney disease, or unspecified chronic kidney disease; R94.4 Abnormal results of kidney function studies; E86.0 Dehydration; R94.31 Abnormal electrocardiogram [ECG] [EKG]; K21.9 Gastro-esophageal reflux disease without esophagitis; R26.89 Other abnormalities of gait and mobility; R53.1 Weakness; M13.89 Other specified arthritis, multiple sites; N18.9 Chronic kidney disease, unspecified; L03.317 Cellulitis of buttock; L89.152 Pressure ulcer of sacral region, stage 2; E11.65 Type 2 diabetes mellitus with hyperglycemia; B95.7 Other staphylococcus as the cause of diseases classified elsewhere; Z79.899 Other long term (current) drug therapy; L89.153 Pressure ulcer of sacral region, stage 3
CPT/HCPCS: 36415; 51702; 71010; 71045; 80053; 81001; 82550; 82553; 83605; 83735; 84484; 85025; 85610; 85730; 87070; 87075; 87077; 87186; 87205; 93005; 94640; 94760; 96365; 96367; 96374; 96375; 97162; 97166; 97530; 97535; 99218; 99282; 99284; A4222; G0378; J0696; J0712; J1956; J7030; J7050; J7620; S0181

== ENCOUNTER 2018-07-27 21:30 | Inpatient (IN) ==
[2018-07-27] MEDS: D5W 1000 ML IV 1,000 ML IV SCH (23:38)
[2018-07-28] MEDS ORDERED: ZOFRAN TAB 4 MG PO PRN (05:28)
[2018-07-28] MEDS ORDERED: NEURONTIN CAP 300 MG PO SCH (06:00)
[2018-07-28 06:05] LABS: BASOPHILS % (AUTO) 0.5 % (0.2-1.0); EOSINOPHILS # (AUTO) 0.3 x10^3/uL (0.0-0.2); EOSINOPHILS % (AUTO) 6.2 % (0.9-2.9); HEMATOCRIT 22.6 % (36.0-47.0); HEMOGLOBIN 7.7 g/dL (12.0-16.0); MEAN CORPUSCULAR HEMOGLOBIN 34.7 pg (27.0-34.0); MEAN CORPUSCULAR HGB CONC 33.9 g/dL (33.0-35.0); MEAN CORPUSCULAR VOLUME 102.3 fL (80.0-100.0); MEAN PLATELET VOLUME 9.7 fL (7.4-11.0); MONOCYTES # (AUTO) 0.6 x10^3/uL (0.3-0.8); MONOCYTES % (AUTO) 11.1 % (0.0-13.0); NEUTROPHILS # (AUTO) 2.5 x10^3/uL (2.2-4.8); NEUTROPHILS % (AUTO) 45.2 % (42.0-75.0); PLATELET COUNT 64 X10^3/uL (150.0-450.0); RED BLOOD COUNT 2.21 X10^6/uL (3.5-5.4); RED CELL DISTRIBUTION WIDTH 15.3 % (11.6-16.5); WHITE BLOOD COUNT 5.5 X10^3/uL (3.6-10.0)
[2018-07-28 06:24] LABS: ALANINE AMINOTRANSFERASE 13 Units/L (12-78); ALBUMIN 1.6 g/dL (3.4-5.0); ALKALINE PHOSPHATASE 126 Units/L (46-116); ASPARTATE AMINO TRANSFERASE 26 Units/L (15-37); BLOOD UREA NITROGEN 24 mg/dL (7-18); CALCIUM 8.4 mg/dL (8.5-10.1); CARBON DIOXIDE 27.2 mmol/L (21-32); COR CA(FOR HYPOALB) 10.3 mg/dL (8.5-10.1); CREATININE 1.06 mg/dL (0.55-1.02); SODIUM 147 mmol/L (136-145); TOTAL PROTEIN 4.7 g/dL (6.4-8.2); eGFR NON BLACK RACES 52 (>60)
[2018-07-28 06:31] LABS: PLATELET MORPHOLOGY COMMENT NORMAL (NORMAL)
[2018-07-28 06:36] LABS: CHLORIDE 115 mmol/L (98-107)
[2018-07-28] MEDS: MOBIC TAB 15 MG PO SCH (08:23)
[2018-07-28] MEDS: TAB-A-VITE PO SCH (08:23)
[2018-07-28] MEDS: XANAX PO SCH ×2 (08:24→20:08)
[2018-07-28] MEDS: NAMENDA TAB 10 MG PO SCH ×2 (08:24→20:09)
[2018-07-28] MEDS: COLACE CAP 100 MG PO SCH ×2 (08:24→20:08)
[2018-07-28] MEDS: VITAMIN C PO SCH (08:25)
[2018-07-28] MEDS: PROTONIX TAB 40 MG PO SCH (08:25)
[2018-07-28] MEDS: ZESTRIL TAB 10 MG PO SCH (08:25)
[2018-07-28] MEDS: NEURONTIN CAP 300 MG PO SCH ×2 (08:32→20:08)
[2018-07-28] MEDS: ZANTAC PO SCH (08:33)
[2018-07-28] MEDS ORDERED: PATIENT'S HOME MEDICATION PO SCH (09:00)
[2018-07-28] MEDS ORDERED: ZANTAC PO SCH (09:00)
[2018-07-28] MEDS ORDERED: POTASSIUM CHLORIDE LIQ 20 MEQ UDC PO PRN (10:25)
[2018-07-28] MEDS ORDERED: MICRO K EXTEN CAP 10 MEQ PO PRN (10:25)
[2018-07-28] MEDS ORDERED: KLOR-CON PO PRN (10:25)
[2018-07-28] MEDS ORDERED: K-RIDER 10 MEQ/NS 100 ML 10 MEQ/100 ML BAG IV PRN (10:25)
[2018-07-28] MEDS ORDERED: POTASSIUM CHL 40 MEQ/NS 0.45% 500 ML IV PRN (10:25)
[2018-07-28] MEDS ORDERED: POTASSIUM CHL 60 MEQ/NS 0.45% 500 ML IV PRN (10:25)
[2018-07-28 10:42] LABS: BILIRUBIN,URINE NEGATIVE (NEGATIVE); BLOOD/HEMOGLOBIN,URINE 5+ (NEGATIVE); GLUCOSE, URINE NEGATIVE (NEGATIVE); KETONES,URINE NEGATIVE (NEGATIVE); LEUKOCYTE ESTERASE ,URINE 2+ (NEGATIVE); NITRITES,URINE NEGATIVE (NEGATIVE); PH,URINE 6.5 (5.0 - 8.0); PROTEIN,URINE 2+ (NEGATIVE); UROBILINOGEN,URINE NORMAL (NORMAL)
[2018-07-28 11:00] LABS: AMORPHOUS SEDIMENT,UR 1+ /HPF (NEGATIVE); APPEARANCE,URINE CLOUDY (CLEAR); BACTERIA,URINE 3+ /HPF (NEGATIVE); CALCIUM OXALATE CRYSTALS,UR FEW /HPF (NEGATIVE); COLOR,URINE YELLOW (YELLOW); MUCUS,URINE FEW /HPF (NEGATIVE); RBC,URINE 20-30 /HPF (NONE SEEN); SQUAMOUS EPITHELIAL CELL,UR MANY /HPF (NEGATIVE)
[2018-07-28 12:05] LABS: HEMATOCRIT 26.8 % (36.0-47.0); HEMOGLOBIN 9.1 g/dL (12.0-16.0)
[2018-07-28] MEDS: ARTIFICIAL TEARS DROPS AFFEYE SCH ×2 (14:02→21:24)
[2018-07-28] MEDS: NYSTATIN CREAM TOP SCH ×2 (14:02→21:25)
[2018-07-28] MEDS: K-DUR TAB 20 MEQ PO PRN (14:03)
[2018-07-28 14:18] VITALS: BMI 18.6
[2018-07-28] MEDS: D5W 1000 ML IV 1,000 ML IV SCH (15:04)
[2018-07-28 17:53] LABS: HEMATOCRIT 26.2 % (36.0-47.0); HEMOGLOBIN 8.9 g/dL (12.0-16.0)
[2018-07-28] MEDS ORDERED: LEXAPRO ONE (19:12)
[2018-07-28] MEDS: GEODON PO SCH (20:08)
[2018-07-28] MEDS: REQUIP PO SCH (20:08)
[2018-07-28] MEDS: ARICEPT TAB 10 MG PO SCH (20:08)
[2018-07-28] MEDS: LEXAPRO PO SCH (20:08)
[2018-07-28] MEDS: CRESTOR TAB 10 MG PO SCH (20:08)
[2018-07-28] MEDS: MIRALAX POWDER (1 DOSE 17 G) PO SCH (20:09)
[2018-07-28] MEDS: TOPAMAX PO SCH (20:09)
--- NOTE | 2018-07-28 21:18 | DR.H&P ---
H&P - History & Physical for Day of: H&P Date: 07/27/18 - Chief Complaint Chief Complaint: BLOOD IN STOOL - History of Present Illness History of Present Illness: IS A 87 YEAR OLD PATIENT OF OURS. SHE IS A RESIDENT OF [facility]. SHE WAS A DIRECT ADMISSION FOR BLOOD IN STOOL. OUTPATIENT LABS WERE OBTAINED AND REVEALED: RBC 2.60, HGB 9.1, HCT 26.7, PLT COUNT 79, SODIUM 150, POTASSIUM 3.3, CHLORIDE 116, BUN 27, CREATININIE 1.16, ALK PHOS 136, TOTAL PROTEIN 5.4, ALBUMIN 1.9. STOOL POSITIVE FOR OCCULT BLOOD. ON ARRIVAL, VITALS WERE 98.3-95-18-96%-178/88. SHE IS NOTED WITH A WOUND TO THE SACRAL AREA. Wound measures 0.5 cm x 1 cm. Wound has tunneling that measures 0.5 cm @ 3 o'clock, 1 cm @ 6 o'clock, 1.5 cm @ 9 o'clock and 5.5 cm @ 12 o'clock. WOUND HAS PURULENT DRAINAGE. SHE WAS STARTED ON D5W AT 75ML/HR AND HOME MEDICATIONS WERE RESUMED. WE WILL CONSULT FOR THE WOUND. OTHERWISE, WE WILL FOLLOW UP WITH AM LABS AND CONTINUE TO MONITOR. - Past Medical History Past Medical History: Anxiety, Arthritis, Dementia, Depression, Migraines, GERD, Hypertension, Schizophrenia Additional Medical History: Right Breast Cancer in 1984 - Past Surgical History Surgical History: Hysterectomy, Mastectomy, Thyroidectomy - Family History Family Medical History: Diabetes Mellitus, Cancer, Hypertension - Social History Alcohol Use: None Drug Use: None - Medications Home Medications: codeine Allergy (Verified 05/16/17 22:24) CONTINUE taking the following medications docusate sodium [Colace] 100 mg PO BID 07/28/18 [History] [id number]-vit K [Multi-Day Plus Minerals] 1 tab PO DAILY 07/28/18 [History] polyethylene glycol 3350 [Miralax] 17 gm PO HS 07/28/18 [History] rosuvastatin [Crestor] 10 mg PO HS 07/28/18 [History] zinc gluconate 50 mg PO DAILY 07/28/18 [History] - Review of Systems Constitutional: No Symptoms Reported Eyes: No Symptoms Reported ENT: No Symptoms Reported Respiratory: No Symptoms Reported Cardiovascular: No Symptoms Reported Gastrointestinal: See HPI, Abdominal Pain, Hematochezia Genitourinary: No Symptoms Reported Musculoskeletal: No Symptoms Reported Skin: See HPI, Wound Neurological: Weakness - Physical Exam Vital Signs: Temperature 98.3 F Pulse Rate [Right Brachial] 83 Respiratory Rate 22 Blood Pressure [Left Calf] 150/90 Blood Pressure [Right Arm] 165/97 Blood Pressure [Left Arm] 116/54 Blood Pressure 183/77 O2 Sat by Pulse Oximetry 97 Oriented: Normal Eyes: Normal Ear: Normal Nose: Normal Throat: Normal Respiratory: Diminished Throughout Cardiovascular: Normal Auscultation: Bowel Sounds: Normal Palpation: Normal Tenderness: Diffuse, Mild Skin: Wound (Sacral wound measures 0.5 cm x 1 cm. Wound has tunneling that measures 0.5 cm @ 3 o'clock, 1 cm @ 6 o'clock, 1.5 cm @ 9 o'clock and 5.5 cm @ 12 o'clock) Musculoskeletal: Normal Psychiatric: Normal Mood Description: Calm Affect: Normal Speech Pattern: Clear - Assessment/Plan (1) GI bleed Qualifiers: GI bleed type/associated pathology: unspecified gastrointestinal hemorrhage type Qualified Code(s): K92.2 - Gastrointestinal hemorrhage, unspecified Status: Acute Plan: ADMIT, COSULT GI, CONTINUE TO MONITOR (2) Sacral decubitus ulcer Qualifiers: Pressure injury stage: stage 3 Qualified Code(s): L89.153 - Pressure ulcer of sacral region, stage 3 Status: Acute Plan: CONSULT , WOUND CARE, CONTINUE TO MONITOR (3) Hypernatremia Status: Acute Plan: D5W AT 75ML/HR, CONTINUE TO MONITOR - Allergies Allergies/Adverse Reactions: Allergies Allergy/AdvReac Type Severity Reaction Status Date / Time codeine Allergy Verified 05/16/17 22:24
[2018-07-28] MEDS: ZOSYN VIAL 3.375 GRAMS 3.375 G in NS 100 ML IV + SPIKE MINIBAG* 100 ML IV SCH (22:26)
[2018-07-28 23:40] LABS: HEMATOCRIT 23.9 % (36.0-47.0)
[2018-07-29] MEDS: D5W 1000 ML IV 1,000 ML IV SCH ×2 (03:09→14:51)
[2018-07-29] MEDS: NYSTATIN CREAM TOP SCH ×3 (05:03→21:38)
[2018-07-29] MEDS: ZOSYN VIAL 3.375 GRAMS 3.375 G in NS 100 ML IV + SPIKE MINIBAG* 100 ML IV SCH ×3 (05:03→21:27)
[2018-07-29] MEDS: ARTIFICIAL TEARS DROPS AFFEYE SCH ×3 (05:03→21:36)
[2018-07-29 06:18] LABS: BASOPHILS % (AUTO) 0.5 % (0.2-1.0); EOSINOPHILS # (AUTO) 0.4 x10^3/uL (0.0-0.2); EOSINOPHILS % (AUTO) 7.2 % (0.9-2.9); HEMOGLOBIN 7.8 g/dL (12.0-16.0); LYMPHOCYTES # (AUTO) 1.9 X10^3/uL (1.3-2.9); LYMPHOCYTES % (AUTO) 36.3 % (21.0-51.0); MEAN CORPUSCULAR HEMOGLOBIN 34.9 pg (27.0-34.0); MEAN CORPUSCULAR HGB CONC 33.7 g/dL (33.0-35.0); MEAN CORPUSCULAR VOLUME 103.4 fL (80.0-100.0); MEAN PLATELET VOLUME 10.1 fL (7.4-11.0); MONOCYTES # (AUTO) 0.5 x10^3/uL (0.3-0.8); MONOCYTES % (AUTO) 8.7 % (0.0-13.0); NEUTROPHILS # (AUTO) 2.5 x10^3/uL (2.2-4.8); NEUTROPHILS % (AUTO) 47.3 % (42.0-75.0); PLATELET COUNT 67 X10^3/uL (150.0-450.0); RED BLOOD COUNT 2.22 X10^6/uL (3.5-5.4); RED CELL DISTRIBUTION WIDTH 15.5 % (11.6-16.5); WHITE BLOOD COUNT 5.3 X10^3/uL (3.6-10.0)
[2018-07-29 06:32] LABS: ALANINE AMINOTRANSFERASE 14 Units/L (12-78); ALBUMIN 1.5 g/dL (3.4-5.0); ALKALINE PHOSPHATASE 102 Units/L (46-116); ASPARTATE AMINO TRANSFERASE 26 Units/L (15-37); BLOOD UREA NITROGEN 17 mg/dL (7-18); CALCIUM 8.5 mg/dL (8.5-10.1); CARBON DIOXIDE 25.1 mmol/L (21-32); CHLORIDE 114 mmol/L (98-107); COR CA(FOR HYPOALB) 10.5 mg/dL (8.5-10.1); CREATININE 0.98 mg/dL (0.55-1.02); SODIUM 145 mmol/L (136-145); TOTAL PROTEIN 4.6 g/dL (6.4-8.2); eGFR NON BLACK RACES 57 (>60)
[2018-07-29 06:55] LABS: PLATELET MORPHOLOGY COMMENT NORMAL (NORMAL)
--- NOTE | 2018-07-29 09:04 | DR.PROGNOT ---
Hospital Progress Notes - Progress Note for Day of: Progress Note Date: 07/29/18 - Chief Complaint Chief Complaint: pt is admitted with generalized fatigue , anemia , electrolyte imbalance . hypercalcemia .positive blood in stool and chronic sacral ulcer.. - Past Medical Family Social History Past Med/Fam/Surg Hx: No changes since H&P Allergies: Allergies codeine Allergy (Verified 05/16/17 22:24) - Review Of Systems ROS: No change since H&P - Vital Signs Vital Signs: Temperature 97.8 F Pulse Rate [Right Brachial] 68 Respiratory Rate 20 Blood Pressure [Left Calf] 150/90 Blood Pressure [Right Arm] 157/87 Blood Pressure [Left Arm] 116/54 Blood Pressure 183/77 O2 Sat by Pulse Oximetry 98 - Physical Exam Oriented: Normal Eyes: Normal Ear: Normal Nose: Normal Throat: Normal Cardiovascular: Normal GI:Auscultation: Normal GI:Palpation: Normal GI: Tenderness: Normal, Diffuse, Mild Skin: Wound (Sacral wound measures 0.5 cm x 1 cm. Wound has tunneling that measures 0.5 cm @ 3 o'clock, 1 cm @ 6 o'clock, 1.5 cm @ 9 o'clock and 5.5 cm @ 12 o'clock) Musculoskeletal: Normal Psychiatric: Normal Mood Description: Calm Affect: Normal Speech Pattern: Clear, Appropriate - Laboratory and Diagnostics Result Diagrams: 07/29/18 05:26 07/29/18 05:26 Labs: Laboratory WBC 5.3 X10^3/uL (3.6-10.0) 07/29/18 05:26 RBC 2.22 X10^6/uL (3.5-5.4) L 07/29/18 05:26 Hgb 7.8 g/dL (12.0-16.0) L 07/29/18 05:26 Hct 23.0 % (36.0-47.0) L 07/29/18 05:26 MCV 103.4 fL (80.0-100.0) H 07/29/18 05:26 MCH 34.9 pg (27.0-34.0) H 07/29/18 05:26 MCHC 33.7 g/dL (33.0-35.0) 07/29/18 05:26 RDW 15.5 % (11.6-16.5) 07/29/18 05:26 Plt Count 67 X10^3/uL (150.0-450.0) L 07/29/18 05:26 Plt Count Comment Decreased (ADEQUATE) A 07/29/18 05:26 MPV 10.1 fL (7.4-11.0) 07/29/18 05:26 Neut % (Auto) 47.3 % (42.0-75.0) 07/29/18 05:26 Lymph % (Auto) 36.3 % (21.0-51.0) 07/29/18 05:26 [place] % (Auto) 8.7 % (0.0-13.0) 07/29/18 05:26 Eos % (Auto) 7.2 % (0.9-2.9) H 07/29/18 05:26 Baso % (Auto) 0.5 % (0.2-1.0) 07/29/18 05:26 Neut # (Auto) 2.5 x10^3/uL (2.2-4.8) 07/29/18 05:26 Lymph # (Auto) 1.9 X10^3/uL (1.3-2.9) 07/29/18 05:26 [place] # (Auto) 0.5 x10^3/uL (0.3-0.8) 07/29/18 05:26 Eos # (Auto) 0.4 x10^3/uL (0.0-0.2) H 07/29/18 05:26 Baso # (Auto) 0.0 X10^3/uL (0.0-0.1) 07/29/18 05:26 Absolute Nucleated RBC 0.1 /100WBC 07/29/18 05:26 Plt Morphology Comment Normal (NORMAL) 07/29/18 05:26 RBC Morphology Normal (NORMAL) 07/29/18 05:26 Sodium 145 mmol/L (136-145) 07/29/18 05:26 Corrected Sodium TNP 07/29/18 05:26 Potassium 4.3 mmol/L (3.5-5.1) 07/29/18 05:26 Chloride 114 mmol/L (98-107) H 07/29/18 05:26 Carbon Dioxide 25.1 mmol/L (21-32) 07/29/18 05:26 BUN 17 mg/dL (7-18) 07/29/18 05:26 Creatinine 0.98 mg/dL (0.55-1.02) 07/29/18 05:26 Est GFR (MDRD) Af Amer > 60 (>60) 07/29/18 05:26 Est GFR (MDRD) Non-Af 57 (>60) L 07/29/18 05:26 Glucose 104 mg/dL (65-99) H 07/29/18 05:26 Calcium 8.5 mg/dL (8.5-10.1) 07/29/18 05:26 Corrected Calcium 10.5 mg/dL (8.5-10.1) H 07/29/18 05:26 Magnesium 1.8 mg/dL (1.7-2.9) 07/28/18 11:55 Total Bilirubin 0.30 mg/dL (0.2-1.0) 07/29/18 05:26 AST 26 Units/L (15-37) 07/29/18 05:26 ALT 14 Units/L (12-78) 07/29/18 05:26 Alkaline Phosphatase 102 Units/L (46-116) 07/29/18 05:26 Total Protein 4.6 g/dL (6.4-8.2) L 07/29/18 05:26 Albumin 1.5 g/dL (3.4-5.0) L 07/29/18 05:26 Globulin 3.1 g/dL (2.5-4.5) 07/29/18 05:26 Albumin/Globulin Ratio 0.5 Ratio (1.1-2.1) L 07/29/18 05:26 Specimen Type Catherized urine 07/28/18 10:08 Urine Color Yellow (YELLOW) 07/28/18 10:08 Urine Appearance Cloudy (CLEAR) 07/28/18 10:08 Urine pH 6.5 (5.0 - 8.0) 07/28/18 10:08 Ur Specific [place] 1.015 (1.000-1.030) 07/28/18 10:08 Urine Protein 2+ (NEGATIVE) 07/28/18 10:08 Urine Glucose (UA) Negative (NEGATIVE) 07/28/18 10:08 Urine Ketones Negative (NEGATIVE) 07/28/18 10:08 Urine Occult Blood 5+ (NEGATIVE) 07/28/18 10:08 Urine Nitrite Negative (NEGATIVE) 07/28/18 10:08 Urine Bilirubin Negative (NEGATIVE) 07/28/18 10:08 Urine Urobilinogen Normal (NORMAL) 07/28/18 10:08 Ur Leukocyte Esterase 2+ (NEGATIVE) 07/28/18 10:08 Urine RBC 20-30 /HPF (NONE SEEN) 07/28/18 10:08 Urine WBC 30-50 /HPF (NONE SEEN) 07/28/18 10:08 Ur Squamous Epith Cells Many /HPF (NEGATIVE) 07/28/18 10:08 Calcium Oxalate Crystal Few /HPF (NEGATIVE) 07/28/18 10:08 Amorphous Sediment 1+ /HPF (NEGATIVE) 07/28/18 10:08 Urine Bacteria 3+ /HPF (NEGATIVE) 07/28/18 10:08 Urine Mucus Few /HPF (NEGATIVE) 07/28/18 10:08 Ur Culture Indicated? Yes/culture set up 07/28/18 10:08 Stool Description 3g,pastey,caban 07/28/18 18:46 Stl Occult Blood (IFOB) Positive (NEGATIVE) A 07/28/18 18:46 - Assessment and Plan 1: positive blood in stool . anemia . chronic sacral ulcer , R/O coccegeal osteomyelitis . dehydration and electrolyte imbalance. hypoalbuminemia. hypercalcemia. for bone scan and GI endiscopy . - Problem Patient Problems: Patient Problems GI bleed (Acute) K92.2 Hypernatremia (Acute) E87.0
[2018-07-29] MEDS: PROTONIX TAB 40 MG PO SCH (09:17)
[2018-07-29] MEDS: MOBIC TAB 15 MG PO SCH (09:17)
[2018-07-29] MEDS: ZINC SULFATE PO SCH (09:17)
[2018-07-29] MEDS: ZANTAC PO SCH (09:17)
[2018-07-29] MEDS: ZESTRIL TAB 10 MG PO SCH (09:18)
[2018-07-29] MEDS: VITAMIN C PO SCH (09:18)
[2018-07-29] MEDS: NEURONTIN CAP 300 MG PO SCH ×2 (09:18→21:32)
[2018-07-29] MEDS: NORCO 10/325 TAB PO PRN ×2 (09:18→23:07)
[2018-07-29] MEDS: XANAX PO SCH ×2 (09:19→21:34)
[2018-07-29] MEDS: COLACE CAP 100 MG PO SCH ×2 (09:19→21:32)
[2018-07-29] MEDS: TAB-A-VITE PO SCH (09:19)
[2018-07-29] MEDS ORDERED: NULYTELY or GO-LYTELY PO SCH (10:00)
[2018-07-29] MEDS ORDERED: PHARMACY CONSULT - TPN XX SCH (12:00)
[2018-07-29 12:26] LABS: HEMATOCRIT 26.2 % (36.0-47.0); HEMOGLOBIN 8.7 g/dL (12.0-16.0)
[2018-07-29] MEDS ORDERED: HumuLIN R SUBCUT PRN (14:52)
[2018-07-29] MEDS ORDERED: DEXTROSE 10% 1,000 ML IV PRN (14:52)
[2018-07-29] MEDS: ALBUMIN HUMAN 25%- 100 ML 100 ML IV SCH (14:57)
[2018-07-29] MEDS: NAMENDA TAB 10 MG PO SCH ×2 (15:00→21:32)
[2018-07-29 15:33] LABS: MAGNESIUM 1.7 mg/dL (1.7-2.9)
--- NOTE | 2018-07-29 17:17 | NM ---
BONE SCAN CLINICAL INDICATION: Sacral PROCEDURE: Approximately 2-4 hours following intravenous administration of 25.5 mCi of [id number], whole body delayed planar images were obtained from the anterior and posterior projections. COMPARISON: None FINDINGS: There is normal by distribution of the radiotracer within the axial and appendicular skeleton. There is normal by distribution of the radiotracer within the genitourinary system and soft tissues. IMPRESSION: 1. Normal bone scan. Reported By:
--- NOTE | 2018-07-29 17:25 | PCM.PROG ---
Progress Note - Progress Note for Day of Date of Exam: 07/28/18 - Subjective Subjective: WAS ADMITTED FOR GI BLEED, A SACRAL ULCER, AND HYPERNATREMIA. TODAY, SHE IS ALERT AND ORIENTED, LYING IN BED ON MORNING ROUNDS. SHE CONTINUES WITH COMPLAINTS OF MILD, DIFFUSE ABDOMINAL PAIN. SHE ALSO CONTINUES WITH WEAKNESS. ON EXAMINATION, HEART IS REGULAR IN RATE AND RHYTHM. BILATERAL LUNGS ARE NOTED WITH DIMINISHED LUNG SOUNDS THROUGHOUT. ABDOMEN IS ROUND, SOFT, AND NOTED WITH MILD, DIFFUSE TENDERNESS. NORMAL BOWEL SOUNDS NOTED IN ALL QUADRANTS. SACRAL WOUND IS NOTED WITH A DRESSING. DRESSING REMOVED AND WOUND IS NOTED WITH PURULENT DRAINAGE. HER VITALS THIS MORNING ARE 97. 6-72-20-97%-176/88. LABS WERE OBTAINED. ABNORMAL LAB VALUES INCLUDE THE FOLLOWING: RBC 2.21, HGB 7.7, HCT 22.6, PLT COUNT 64, SODIUM 147, POTASSIUM 3.2, CHLORIDE 115, BUN 24, CREATININE 1.06, GLUCOSE 107, CALCIUM 8.4, ALK PHOS 126, TOTAL PROTEIN 4.7, ALBUMIN 1.6. URINALYSIS OBTAINED AND REVEALED: WBC 30-50, RBC 20-30, LEUKOCYTES 2+, BACTERIA 3+. TODAY, WE WILL START ZOSYN 3.375GM IV TID AND CONSULT FOR WOUND. OTHERWISE, WE WILL CONTINUE WITH CURRENT PLAN OF CARE. WE WILL FOLLOW UP WITH AM LABS AND CONTINUE TO MONITOR. - Past Medical Family Social History Past Med/Fam/Surg Hx: No changes since H&P Allergies: Allergies codeine Allergy (Verified 05/16/17 22:24) - Review of Systems ROS: No change since H&P - Vital Signs and I&O's Vital Signs: Temperature 98.1 F Pulse Rate [Right Brachial] 71 Respiratory Rate 18 Blood Pressure [Left Calf] 150/90 Blood Pressure [Right Arm] 122/73 Blood Pressure [Left Arm] 116/54 Blood Pressure 183/77 O2 Sat by Pulse Oximetry 98 Intake and Output: Intake & Output 07/27/18 07/28/18 07/29/18 07/30/18 11:59 11:59 11:59 11:59 Intake Total 728 / 728 2616 / 2616 600 / 600 Output Total 1450 / 1450 Balance 728 / 728 1166 / 1166 600 / 600 - Physical Exam Oriented: Normal Eyes: Normal Ear: Normal Nose: Normal Throat: Normal Respiratory: Diminished Cardiovascular: Normal : Normal Auscultation: Bowel Sounds: Normal Palpation: Normal Tenderness: Normal, Diffuse, Mild Skin: Wound (Sacral wound measures 0.5 cm x 1 cm. Wound has tunneling that measures 0.5 cm @ 3 o'clock, 1 cm @ 6 o'clock, 1.5 cm @ 9 o'clock and 5.5 cm @ 12 o'clock) Musculoskeletal: Normal Psychiatric: Normal Mood Description: Calm Affect: Normal Speech Pattern: Clear, Appropriate - Laboratory and Diagnostics Result Diagrams: 07/29/18 12:08 07/29/18 05:26 Labs: 07/28/18 10:08 Urine,[place] Urine Culture - Preliminary Laboratory WBC 5.3 X10^3/uL (3.6-10.0) 07/29/18 05:26 RBC 2.22 X10^6/uL (3.5-5.4) L 07/29/18 05:26 Hgb 8.7 g/dL (12.0-16.0) L 07/29/18 12:08 Hct 26.2 % (36.0-47.0) L 07/29/18 12:08 MCV 103.4 fL (80.0-100.0) H 07/29/18 05:26 MCH 34.9 pg (27.0-34.0) H 07/29/18 05:26 MCHC 33.7 g/dL (33.0-35.0) 07/29/18 05:26 RDW 15.5 % (11.6-16.5) 07/29/18 05:26 Plt Count 67 X10^3/uL (150.0-450.0) L 07/29/18 05:26 Plt Count Comment Decreased (ADEQUATE) A 07/29/18 05:26 MPV 10.1 fL (7.4-11.0) 07/29/18 05:26 Neut % (Auto) 47.3 % (42.0-75.0) 07/29/18 05:26 Lymph % (Auto) 36.3 % (21.0-51.0) 07/29/18 05:26 [place] % (Auto) 8.7 % (0.0-13.0) 07/29/18 05:26 Eos % (Auto) 7.2 % (0.9-2.9) H 07/29/18 05:26 Baso % (Auto) 0.5 % (0.2-1.0) 07/29/18 05:26 Neut # (Auto) 2.5 x10^3/uL (2.2-4.8) 07/29/18 05:26 Lymph # (Auto) 1.9 X10^3/uL (1.3-2.9) 07/29/18 05:26 [place] # (Auto) 0.5 x10^3/uL (0.3-0.8) 07/29/18 05:26 Eos # (Auto) 0.4 x10^3/uL (0.0-0.2) H 07/29/18 05:26 Baso # (Auto) 0.0 X10^3/uL (0.0-0.1) 07/29/18 05:26 Absolute Nucleated RBC 0.1 /100WBC 07/29/18 05:26 Plt Morphology Comment Normal (NORMAL) 07/29/18 05:26 RBC Morphology Normal (NORMAL) 07/29/18 05:26 Sodium 145 mmol/L (136-145) 07/29/18 05:26 Corrected Sodium TNP 07/29/18 05:26 Potassium 4.3 mmol/L (3.5-5.1) 07/29/18 05:26 Chloride 114 mmol/L (98-107) H 07/29/18 05:26 Carbon Dioxide 25.1 mmol/L (21-32) 07/29/18 05:26 BUN 17 mg/dL (7-18) 07/29/18 05:26 Creatinine 0.98 mg/dL (0.55-1.02) 07/29/18 05:26 Est GFR (MDRD) Af Amer > 60 (>60) 07/29/18 05:26 Est GFR (MDRD) Non-Af 57 (>60) L 07/29/18 05:26 Glucose 104 mg/dL (65-99) H 07/29/18 05:26 POC Glucose (mg/dL) 93 mg/dL (65-99) 07/29/18 15:04 Calcium 8.5 mg/dL (8.5-10.1) 07/29/18 05:26 Corrected Calcium 10.5 mg/dL (8.5-10.1) H 07/29/18 05:26 Phosphorus 3.0 mg/dL (2.6-4.7) 07/29/18 15:15 Magnesium 1.7 mg/dL (1.7-2.9) 07/29/18 15:15 Total Bilirubin 0.30 mg/dL (0.2-1.0) 07/29/18 05:26 AST 26 Units/L (15-37) 07/29/18 05:26 ALT 14 Units/L (12-78) 07/29/18 05:26 Alkaline Phosphatase 102 Units/L (46-116) 07/29/18 05:26 Total Protein 4.6 g/dL (6.4-8.2) L 07/29/18 05:26 Albumin 1.5 g/dL (3.4-5.0) L 07/29/18 05:26 Globulin 3.1 g/dL (2.5-4.5) 07/29/18 05:26 Albumin/Globulin Ratio 0.5 Ratio (1.1-2.1) L 07/29/18 05:26 Prealbumin 6.9 mg/dL (18-35.7) L 07/29/18 05:26 Triglycerides 48 mg/dL (0-150) 07/29/18 15:15 Specimen Type Catherized urine 07/28/18 10:08 Urine Color Yellow (YELLOW) 07/28/18 10:08 Urine Appearance Cloudy (CLEAR) 07/28/18 10:08 Urine pH 6.5 (5.0 - 8.0) 07/28/18 10:08 Ur Specific [place] 1.015 (1.000-1.030) 07/28/18 10:08 Urine Protein 2+ (NEGATIVE) 07/28/18 10:08 Urine Glucose (UA) Negative (NEGATIVE) 07/28/18 10:08 Urine Ketones Negative (NEGATIVE) 07/28/18 10:08 Urine Occult Blood 5+ (NEGATIVE) 07/28/18 10:08 Urine Nitrite Negative (NEGATIVE) 07/28/18 10:08 Urine Bilirubin Negative (NEGATIVE) 07/28/18 10:08 Urine Urobilinogen Normal (NORMAL) 07/28/18 10:08 Ur Leukocyte Esterase 2+ (NEGATIVE) 07/28/18 10:08 Urine RBC 20-30 /HPF (NONE SEEN) 07/28/18 10:08 Urine WBC 30-50 /HPF (NONE SEEN) 07/28/18 10:08 Ur Squamous Epith Cells Many /HPF (NEGATIVE) 07/28/18 10:08 Calcium Oxalate Crystal Few /HPF (NEGATIVE) 07/28/18 10:08 Amorphous Sediment 1+ /HPF (NEGATIVE) 07/28/18 10:08 Urine Bacteria 3+ /HPF (NEGATIVE) 07/28/18 10:08 Urine Mucus Few /HPF (NEGATIVE) 07/28/18 10:08 Ur Culture Indicated? Yes/culture set up 07/28/18 10:08 Stool Description 3g,pastey,caban 07/28/18 18:46 Stl Occult Blood (IFOB) Positive (NEGATIVE) A 07/28/18 18:46 - Plan (1) GI bleed Status: Acute Qualifiers: GI bleed type/associated pathology: unspecified gastrointestinal hemorrhage t ype Qualified Code(s): K92.2 - Gastrointestinal hemorrhage, unspecified Plan: CONSULT GI, CONTINUE TO MONITOR (2) Sacral decubitus ulcer Status: Acute Qualifiers: Pressure injury stage: stage 3 Qualified Code(s): L89.153 - Pressure ulcer of sacral region, stage 3 Plan: CONSULT , WOUND CARE, CONTINUE TO MONITOR (3) Hypernatremia Status: Acute Plan: D5W AT 75ML/HR, CONTINUE TO MONITOR
[2018-07-29] MEDS ORDERED: DULCOLAX TAB EC 5 MG PO ONE ×2 (17:35→18:02)
[2018-07-29] MEDS ORDERED: DRUG FILTER EXTENSION SET ONE (17:50)
[2018-07-29] MEDS ORDERED: CITROMA PO ONE (18:00)
[2018-07-29] MEDS ORDERED: CITROMA ONE (18:02)
[2018-07-29] MEDS: CLINIMIX 4.25 %/10 % 1,000 ML with MVI INJ (ADULT) 10 ML, TRACE ELEMENTS INJ 10 ML, DRU... IV SCH ×3 (18:05)
--- NOTE | 2018-07-29 18:08 | PCM.PROG ---
Progress Note - Progress Note for Day of Date of Exam: 07/29/18 - Subjective Subjective: WAS ADMITTED FOR GI BLEED, A SACRAL ULCER, AND HYPERNATREMIA. TODAY, SHE IS ALERT AND ORIENTED, LYING IN BED ON MORNING ROUNDS. SHE CONTINUES WITH COMPLAINTS OF MILD, DIFFUSE ABDOMINAL PAIN. SHE ALSO CONTINUES WITH WEAKNESS. ON EXAMINATION, HEART IS REGULAR IN RATE AND RHYTHM. BILATERAL LUNGS ARE NOTED WITH DIMINISHED LUNG SOUNDS THROUGHOUT. ABDOMEN IS ROUND, SOFT, AND NOTED WITH MILD, DIFFUSE TENDERNESS. NORMAL BOWEL SOUNDS NOTED IN ALL QUADRANTS. DRESSING TO SACRUM IS DRY AND INTACT AT THIS TIME. HER VITALS THIS MORNING ARE 98.0-75-18-98%-186/88. LABS WERE OBTAINED. ABNORMAL LAB VALUES INCLUDE THE FOLLOWING: RBC 2.22, HGB 7.8, HCT 23.0, PLT COUNT 67, CHLORIDE 114, GLUCOSE 104, TOTAL PROTEIN 4.6, ALBUMIN 1.5. SHE IS CURRENTLY RECEIVING ZOSYN 3.375GM IV TID WELL IV HYDRATION. WILL SEE HER THIS MORNING. WE WILL ADD ALBUMIN 25% IV DAILY AND TPN. WE WILL ALSO START IV PEPCID AND PROTONIX. OTHERWISE, WE WILL CONTINUE WITH CURRENT PLAN OF CARE. WE WILL FOLLOW UP WITH AM LABS AND CONTINUE TO MONITOR. - Past Medical Family Social History Past Med/Fam/Surg Hx: No changes since H&P Allergies: Allergies codeine Allergy (Verified 05/16/17 22:24) - Review of Systems ROS: No change since H&P - Vital Signs and I&O's Vital Signs: Temperature 98 F Pulse Rate [Right Brachial] 67 Respiratory Rate 18 Blood Pressure [Left Calf] 150/90 Blood Pressure [Right Arm] 176/80 Blood Pressure [Left Arm] 116/54 Blood Pressure 183/77 O2 Sat by Pulse Oximetry 98 Intake and Output: Intake & Output 07/27/18 07/28/18 07/29/18 07/30/18 11:59 11:59 11:59 11:59 Intake Total 728 / 728 2616 / 2616 1080 / 1080 Output Total 1450 / 1450 900 / 900 Balance 728 / 728 1166 / 1166 180 / 180 - Physical Exam Oriented: Normal Eyes: Normal Ear: Normal Nose: Normal Throat: Normal Respiratory: Diminished Cardiovascular: Normal : Normal Auscultation: Bowel Sounds: Normal Palpation: Normal Tenderness: Normal, Diffuse, Mild Skin: Wound (Sacral wound measures 0.5 cm x 1 cm. Wound has tunneling that measures 0.5 cm @ 3 o'clock, 1 cm @ 6 o'clock, 1.5 cm @ 9 o'clock and 5.5 cm @ 12 o'clock) Musculoskeletal: Normal Psychiatric: Normal Mood Description: Calm Affect: Normal Speech Pattern: Clear, Appropriate - Laboratory and Diagnostics Result Diagrams: 07/29/18 12:08 07/29/18 05:26 Labs: 07/28/18 10:08 Urine,[place] Urine Culture - Preliminary Laboratory WBC 5.3 X10^3/uL (3.6-10.0) 07/29/18 05:26 RBC 2.22 X10^6/uL (3.5-5.4) L 07/29/18 05:26 Hgb 8.7 g/dL (12.0-16.0) L 07/29/18 12:08 Hct 26.2 % (36.0-47.0) L 07/29/18 12:08 MCV 103.4 fL (80.0-100.0) H 07/29/18 05:26 MCH 34.9 pg (27.0-34.0) H 07/29/18 05:26 MCHC 33.7 g/dL (33.0-35.0) 07/29/18 05:26 RDW 15.5 % (11.6-16.5) 07/29/18 05:26 Plt Count 67 X10^3/uL (150.0-450.0) L 07/29/18 05:26 Plt Count Comment Decreased (ADEQUATE) A 07/29/18 05:26 MPV 10.1 fL (7.4-11.0) 07/29/18 05:26 Neut % (Auto) 47.3 % (42.0-75.0) 07/29/18 05:26 Lymph % (Auto) 36.3 % (21.0-51.0) 07/29/18 05:26 [place] % (Auto) 8.7 % (0.0-13.0) 07/29/18 05:26 Eos % (Auto) 7.2 % (0.9-2.9) H 07/29/18 05:26 Baso % (Auto) 0.5 % (0.2-1.0) 07/29/18 05:26 Neut # (Auto) 2.5 x10^3/uL (2.2-4.8) 07/29/18 05:26 Lymph # (Auto) 1.9 X10^3/uL (1.3-2.9) 07/29/18 05:26 [place] # (Auto) 0.5 x10^3/uL (0.3-0.8) 07/29/18 05:26 Eos # (Auto) 0.4 x10^3/uL (0.0-0.2) H 07/29/18 05:26 Baso # (Auto) 0.0 X10^3/uL (0.0-0.1) 07/29/18 05:26 Absolute Nucleated RBC 0.1 /100WBC 07/29/18 05:26 Plt Morphology Comment Normal (NORMAL) 07/29/18 05:26 RBC Morphology Normal (NORMAL) 07/29/18 05:26 Sodium 145 mmol/L (136-145) 07/29/18 05:26 Corrected Sodium TNP 07/29/18 05:26 Potassium 4.3 mmol/L (3.5-5.1) 07/29/18 05:26 Chloride 114 mmol/L (98-107) H 07/29/18 05:26 Carbon Dioxide 25.1 mmol/L (21-32) 07/29/18 05:26 BUN 17 mg/dL (7-18) 07/29/18 05:26 Creatinine 0.98 mg/dL (0.55-1.02) 07/29/18 05:26 Est GFR (MDRD) Af Amer > 60 (>60) 07/29/18 05:26 Est GFR (MDRD) Non-Af 57 (>60) L 07/29/18 05:26 Glucose 104 mg/dL (65-99) H 07/29/18 05:26 POC Glucose (mg/dL) 93 mg/dL (65-99) 07/29/18 15:04 Calcium 8.5 mg/dL (8.5-10.1) 07/29/18 05:26 Corrected Calcium 10.5 mg/dL (8.5-10.1) H 07/29/18 05:26 Phosphorus 3.0 mg/dL (2.6-4.7) 07/29/18 15:15 Magnesium 1.7 mg/dL (1.7-2.9) 07/29/18 15:15 Total Bilirubin 0.30 mg/dL (0.2-1.0) 07/29/18 05:26 AST 26 Units/L (15-37) 07/29/18 05:26 ALT 14 Units/L (12-78) 07/29/18 05:26 Alkaline Phosphatase 102 Units/L (46-116) 07/29/18 05:26 Total Protein 4.6 g/dL (6.4-8.2) L 07/29/18 05:26 Albumin 1.5 g/dL (3.4-5.0) L 07/29/18 05:26 Globulin 3.1 g/dL (2.5-4.5) 07/29/18 05:26 Albumin/Globulin Ratio 0.5 Ratio (1.1-2.1) L 07/29/18 05:26 Prealbumin 6.9 mg/dL (18-35.7) L 07/29/18 05:26 Triglycerides 48 mg/dL (0-150) 07/29/18 15:15 Specimen Type Catherized urine 07/28/18 10:08 Urine Color Yellow (YELLOW) 07/28/18 10:08 Urine Appearance Cloudy (CLEAR) 07/28/18 10:08 Urine pH 6.5 (5.0 - 8.0) 07/28/18 10:08 Ur Specific [place] 1.015 (1.000-1.030) 07/28/18 10:08 Urine Protein 2+ (NEGATIVE) 07/28/18 10:08 Urine Glucose (UA) Negative (NEGATIVE) 07/28/18 10:08 Urine Ketones Negative (NEGATIVE) 07/28/18 10:08 Urine Occult Blood 5+ (NEGATIVE) 07/28/18 10:08 Urine Nitrite Negative (NEGATIVE) 07/28/18 10:08 Urine Bilirubin Negative (NEGATIVE) 07/28/18 10:08 Urine Urobilinogen Normal (NORMAL) 07/28/18 10:08 Ur Leukocyte Esterase 2+ (NEGATIVE) 07/28/18 10:08 Urine RBC 20-30 /HPF (NONE SEEN) 07/28/18 10:08 Urine WBC 30-50 /HPF (NONE SEEN) 07/28/18 10:08 Ur Squamous Epith Cells Many /HPF (NEGATIVE) 07/28/18 10:08 Calcium Oxalate Crystal Few /HPF (NEGATIVE) 07/28/18 10:08 Amorphous Sediment 1+ /HPF (NEGATIVE) 07/28/18 10:08 Urine Bacteria 3+ /HPF (NEGATIVE) 07/28/18 10:08 Urine Mucus Few /HPF (NEGATIVE) 07/28/18 10:08 Ur Culture Indicated? Yes/culture set up 07/28/18 10:08 Stool Description 3g,pastey,caban 07/28/18 18:46 Stl Occult Blood (IFOB) Positive (NEGATIVE) A 07/28/18 18:46 - Plan (1) GI bleed Status: Acute Qualifiers: GI bleed type/associated pathology: unspecified gastrointestinal hemorrhage type Qualified Code(s): K92.2 - Gastrointestinal hemorrhage, unspecified Plan: PEPCID IV, PROTONIX IV, CONSULT GI, CONTINUE TO MONITOR (2) Sacral decubitus ulcer Status: Acute Qualifiers: Pressure injury stage: stage 3 Qualified Code(s): L89.153 - Pressure ulcer of sacral region, stage 3 Plan: CONSULT , WOUND CARE, CONTINUE TO MONITOR (3) Hypernatremia Status: Acute Plan: D5W AT 75ML/HR, CONTINUE TO MONITOR (4) Hypoalbuminemia Status: Acute Plan: ALBUMIN 25% IV DAILY TPN
[2018-07-29] MEDS: ZOFRAN INJ 4 MG VIAL IVP PRN (18:54)
[2018-07-29] MEDS ORDERED: LEXAPRO ONE (21:12)
[2018-07-29] MEDS: PROTONIX INJ 40 MG VIAL IVP SCH (21:21)
[2018-07-29] MEDS: PEPCID 20 MG IV PREMIX* 20 MG/50 ML BAG IV SCH (21:21)
[2018-07-29] MEDS: CRESTOR TAB 10 MG PO SCH (21:32)
[2018-07-29] MEDS: GEODON PO SCH (21:32)
[2018-07-29] MEDS: ARICEPT TAB 10 MG PO SCH (21:32)
[2018-07-29] MEDS: LEXAPRO PO SCH (21:33)
[2018-07-29] MEDS: REQUIP PO SCH (21:33)
[2018-07-29] MEDS: TOPAMAX PO SCH (21:34)
[2018-07-29] MEDS: MIRALAX POWDER (1 DOSE 17 G) PO SCH (21:41)
[2018-07-30] MEDS: ZOSYN VIAL 3.375 GRAMS 3.375 G in NS 100 ML IV + SPIKE MINIBAG* 100 ML IV SCH (05:15)
[2018-07-30] MEDS: NYSTATIN CREAM TOP SCH ×3 (05:17→21:10)
[2018-07-30] MEDS: ARTIFICIAL TEARS DROPS AFFEYE SCH ×3 (05:17→21:10)
[2018-07-30 06:04] LABS: BASOPHILS % (AUTO) 0.4 % (0.2-1.0); EOSINOPHILS # (AUTO) 0.1 x10^3/uL (0.0-0.2); EOSINOPHILS % (AUTO) 1.2 % (0.9-2.9); HEMATOCRIT 25.1 % (36.0-47.0); HEMOGLOBIN 8.4 g/dL (12.0-16.0); LYMPHOCYTES # (AUTO) 1.1 X10^3/uL (1.3-2.9); LYMPHOCYTES % (AUTO) 18.2 % (21.0-51.0); MEAN CORPUSCULAR HGB CONC 33.5 g/dL (33.0-35.0); MEAN CORPUSCULAR VOLUME 104.4 fL (80.0-100.0); MEAN PLATELET VOLUME 9.7 fL (7.4-11.0); MONOCYTES # (AUTO) 0.4 x10^3/uL (0.3-0.8); MONOCYTES % (AUTO) 7.3 % (0.0-13.0); NEUTROPHILS # (AUTO) 4.2 x10^3/uL (2.2-4.8); NEUTROPHILS % (AUTO) 72.9 % (42.0-75.0); PLATELET COUNT 79 X10^3/uL (150.0-450.0); RED CELL DISTRIBUTION WIDTH 15.2 % (11.6-16.5); WHITE BLOOD COUNT 5.8 X10^3/uL (3.6-10.0)
[2018-07-30 06:14] LABS: ALANINE AMINOTRANSFERASE 17 Units/L (12-78); ALBUMIN 2.2 g/dL (3.4-5.0); ALKALINE PHOSPHATASE 89 Units/L (46-116); ASPARTATE AMINO TRANSFERASE 13 Units/L (15-37); BLOOD UREA NITROGEN 14 mg/dL (7-18); CALCIUM 8.6 mg/dL (8.5-10.1); CARBON DIOXIDE 27.7 mmol/L (21-32); CHLORIDE 112 mmol/L (98-107); COR NA(FOR HYPERGLY) 145 mmol/L (136-145); CREATININE 0.91 mg/dL (0.55-1.02); SODIUM 144 mmol/L (136-145); TOTAL PROTEIN 5.3 g/dL (6.4-8.2); eGFR NON BLACK RACES > 60 (>60)
[2018-07-30 06:17] LABS: PREALBUMIN 8.7 mg/dL (18-35.7)
[2018-07-30] MEDS ORDERED: NS 500 ML IV 500 ML IV ONE ×2 (07:24→10:17)
[2018-07-30] MEDS ORDERED: DIPRIVAN VIAL 20 ML ONE (07:24)
--- NOTE | 2018-07-30 08:04 | OR.GENERIC ---
Post-Op Note Generic - Post-Op Note Operative Report: limited colonoscopy with extensive diverticulosis and stricture of the distal sigmoid .. couldn't pass that area . needs BE for further evaluation .. Pt did well
--- NOTE | 2018-07-30 08:18 | DR.PROGNOT ---
Hospital Progress Notes - Progress Note for Day of: Progress Note Date: 07/30/18 - Chief Complaint Chief Complaint: had limited colonoscopy with the finding of stricture of the distal sigmoid colon . Bone scan was normal , no oseomyelitis of the Coccyx. sacral ulcer dressing was changed and repacked . no cellulitis , necrosis or abscess formation . well schedule for BE and abdominal /pelvic CT to r/o malignancy. CEA was orderd . - Past Medical Family Social History Past Med/Fam/Surg Hx: No changes since H&P Allergies: Allergies codeine Allergy (Verified 05/16/17 22:24) - Review Of Systems ROS: No change since H&P - Vital Signs Vital Signs: Temperature 98.5 F Pulse Rate [Right Brachial] 81 Respiratory Rate 20 Blood Pressure [Left Calf] 150/90 Blood Pressure [Right Arm] 176/80 Blood Pressure [Left Arm] 184/85 Blood Pressure 183/77 O2 Sat by Pulse Oximetry 96 - Physical Exam Oriented: Normal Eyes: Normal Ear: Normal Nose: Normal Throat: Normal Respiratory: Diminished Cardiovascular: Normal : Normal GI:Auscultation: Normal GI:Palpation: Normal GI: Tenderness: Normal, Diffuse, Mild Skin: Wound (Sacral wound measures 0.5 cm x 1 cm. Wound has tunneling that measures 0.5 cm @ 3 o'clock, 1 cm @ 6 o'clock, 1.5 cm @ 9 o'clock and 5.5 cm @ 12 o'clock) Musculoskeletal: Normal Psychiatric: Normal Mood Description: Calm Affect: Normal Speech Pattern: Clear, Appropriate - Laboratory and Diagnostics Result Diagrams: 07/30/18 05:10 07/30/18 05:10 Labs: 07/28/18 10:08 Urine,[place] Urine Culture - Final Escherichia Coli Laboratory WBC 5.8 X10^3/uL (3.6-10.0) 07/30/18 05:10 RBC 2.40 X10^6/uL (3.5-5.4) L 07/30/18 05:10 Hgb 8.4 g/dL (12.0-16.0) L 07/30/18 05:10 Hct 25.1 % (36.0-47.0) L 07/30/18 05:10 MCV 104.4 fL (80.0-100.0) H 07/30/18 05:10 MCH 35.0 pg (27.0-34.0) H 07/30/18 05:10 MCHC 33.5 g/dL (33.0-35.0) 07/30/18 05:10 RDW 15.2 % (11.6-16.5) 07/30/18 05:10 Plt Count 79 X10^3/uL (150.0-450.0) L 07/30/18 05:10 Plt Count Comment Decreased (ADEQUATE) A 07/29/18 05:26 MPV 9.7 fL (7.4-11.0) 07/30/18 05:10 Neut % (Auto) 72.9 % (42.0-75.0) 07/30/18 05:10 Lymph % (Auto) 18.2 % (21.0-51.0) L 07/30/18 05:10 [place] % (Auto) 7.3 % (0.0-13.0) 07/30/18 05:10 Eos % (Auto) 1.2 % (0.9-2.9) 07/30/18 05:10 Baso % (Auto) 0.4 % (0.2-1.0) 07/30/18 05:10 Neut # (Auto) 4.2 x10^3/uL (2.2-4.8) 07/30/18 05:10 Lymph # (Auto) 1.1 X10^3/uL (1.3-2.9) L 07/30/18 05:10 [place] # (Auto) 0.4 x10^3/uL (0.3-0.8) 07/30/18 05:10 Eos # (Auto) 0.1 x10^3/uL (0.0-0.2) 07/30/18 05:10 Baso # (Auto) 0.0 X10^3/uL (0.0-0.1) 07/30/18 05:10 Absolute Nucleated RBC 0.0 /100WBC 07/30/18 05:10 Plt Morphology Comment Normal (NORMAL) 07/29/18 05:26 RBC Morphology Normal (NORMAL) 07/29/18 05:26 Sodium 144 mmol/L (136-145) 07/30/18 05:10 Corrected Sodium 145 mmol/L (136-145) 07/30/18 05:10 Potassium 4.0 mmol/L (3.5-5.1) 07/30/18 05:10 Chloride 112 mmol/L (98-107) H 07/30/18 05:10 Carbon Dioxide 27.7 mmol/L (21-32) 07/30/18 05:10 BUN 14 mg/dL (7-18) 07/30/18 05:10 Creatinine 0.91 mg/dL (0.55-1.02) 07/30/18 05:10 Est GFR (MDRD) Af Amer > 60 (>60) 07/30/18 05:10 Est GFR (MDRD) Non-Af > 60 (>60) 07/30/18 05:10 Glucose 150 mg/dL (65-99) H 07/30/18 05:10 POC Glucose (mg/dL) 162 mg/dL (65-99) H 07/30/18 05:01 Calcium 8.6 mg/dL (8.5-10.1) 07/30/18 05:10 Corrected Calcium 10.0 mg/dL (8.5-10.1) 07/30/18 05:10 Phosphorus 3.0 mg/dL (2.6-4.7) 07/29/18 15:15 Magnesium 1.7 mg/dL (1.7-2.9) 07/29/18 15:15 Total Bilirubin 0.50 mg/dL (0.2-1.0) 07/30/18 05:10 AST 13 Units/L (15-37) L 07/30/18 05:10 ALT 17 Units/L (12-78) 07/30/18 05:10 Alkaline Phosphatase 89 Units/L (46-116) 07/30/18 05:10 Total Protein 5.3 g/dL (6.4-8.2) L 07/30/18 05:10 Albumin 2.2 g/dL (3.4-5.0) L 07/30/18 05:10 Globulin 3.1 g/dL (2.5-4.5) 07/30/18 05:10 Albumin/Globulin Ratio 0.7 Ratio (1.1-2.1) L 07/30/18 05:10 Prealbumin 8.7 mg/dL (18-35.7) L 07/30/18 05:10 Triglycerides 48 mg/dL (0-150) 07/29/18 15:15 Specimen Type Catherized urine 07/28/18 10:08 Urine Color Yellow (YELLOW) 07/28/18 10:08 Urine Appearance Cloudy (CLEAR) 07/28/18 10:08 Urine pH 6.5 (5.0 - 8.0) 07/28/18 10:08 Ur Specific [place] 1.015 (1.000-1.030) 07/28/18 10:08 Urine Protein 2+ (NEGATIVE) 07/28/18 10:08 Urine Glucose (UA) Negative (NEGATIVE) 07/28/18 10:08 Urine Ketones Negative (NEGATIVE) 07/28/18 10:08 Urine Occult Blood 5+ (NEGATIVE) 07/28/18 10:08 Urine Nitrite Negative (NEGATIVE) 07/28/18 10:08 Urine Bilirubin Negative (NEGATIVE) 07/28/18 10:08 Urine Urobilinogen Normal (NORMAL) 07/28/18 10:08 Ur Leukocyte Esterase 2+ (NEGATIVE) 07/28/18 10:08 Urine RBC 20-30 /HPF (NONE SEEN) 07/28/18 10:08 Urine WBC 30-50 /HPF (NONE SEEN) 07/28/18 10:08 Ur Squamous Epith Cells Many /HPF (NEGATIVE) 07/28/18 10:08 Calcium Oxalate Crystal Few /HPF (NEGATIVE) 07/28/18 10:08 Amorphous Sediment 1+ /HPF (NEGATIVE) 07/28/18 10:08 Urine Bacteria 3+ /HPF (NEGATIVE) 07/28/18 10:08 Urine Mucus Few /HPF (NEGATIVE) 07/28/18 10:08 Ur Culture Indicated? Yes/culture set up 07/28/18 10:08 Stool Description 3g,pastey,caban 07/28/18 18:46 Stl Occult Blood (IFOB) Positive (NEGATIVE) A 07/28/18 18:46 - Assessment and Plan 1: stricture of distal sigmoid colon. 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 dehydration and electrolyte imbalance. hypoalbuminemia. for BE and abd /pelvic CT. CEA level. same local care of the ulcer. nuttitional support . - Problem Patient Problems: Patient Problems GI bleed (Acute) K92.2 Hypernatremia (Acute) E87.0 Hypoalbuminemia (Acute) E88.09
[2018-07-30] MEDS: CLINIMIX 4.25 %/10 % 1,000 ML with MVI INJ (ADULT) 10 ML, TRACE ELEMENTS INJ 10 ML, DRU... IV SCH ×6 (09:25→15:40)
[2018-07-30] MEDS: ALBUMIN HUMAN 25%- 100 ML 100 ML IV SCH (10:20)
[2018-07-30] MEDS: PROTONIX INJ 40 MG VIAL IVP SCH ×2 (10:20→21:09)
[2018-07-30] MEDS: PEPCID 20 MG IV PREMIX* 20 MG/50 ML BAG IV SCH ×2 (10:20→21:09)
[2018-07-30] MEDS: ZESTRIL TAB 10 MG PO SCH (10:22)
[2018-07-30] MEDS: XANAX PO SCH ×2 (10:22→21:07)
[2018-07-30] MEDS ORDERED: STERILE WATER IRRIGATION IR ONE (11:17)
[2018-07-30] MEDS ORDERED: LEXAPRO ONE ×2 (11:38→20:30)
[2018-07-30] MEDS: INVANZ INJ 1 GM VIAL 1 GM in NS 100 ML IV + SPIKE MINIBAG* 100 ML IV SCH (14:07)
[2018-07-30] MEDS: ZANTAC PO SCH (14:08)
[2018-07-30] MEDS: MOBIC TAB 15 MG PO SCH (14:08)
[2018-07-30] MEDS: NEURONTIN CAP 300 MG PO SCH ×2 (14:08→21:08)
[2018-07-30] MEDS: ASPIRIN EC 81 MG PO SCH (14:09)
[2018-07-30] MEDS: VITAMIN C PO SCH (14:09)
[2018-07-30] MEDS: ZINC SULFATE PO SCH (14:09)
[2018-07-30] MEDS: TAB-A-VITE PO SCH (14:09)
[2018-07-30] MEDS: NAMENDA TAB 10 MG PO SCH ×2 (14:10→21:09)
[2018-07-30] MEDS: COLACE CAP 100 MG PO SCH ×2 (14:11→21:09)
[2018-07-30] MEDS: PLAVIX PO SCH (14:16)
--- NOTE | 2018-07-30 15:30 | RAD ---
Single contrast barium enema Indication: Failed colonoscopy, concern for stricture Technique: Barium contrast was administered through a rectal tube with subsequent multi planar imaging of the abdomen pelvis performed during administration of rectal contrast. Findings: Examination is markedly limited as patient was unable to stay and lay prone or supine and had very difficult time maintaining catheter position without significant discomfort during the examination. Given these limitations there is diffuse narrowing of the sigmoid colon with multiple diverticula noted. There is no apple-core lesion or severe narrowing within the rectum or sigmoid colon. The proximal colon demonstrates suboptimal opacification however there are few diverticula noted within the transverse colon. No extravasation of contrast. Impression: Unfortunately the barium enema is severely limited by patient condition and inability to tolerate procedure. There is no severe stricture or obstructing mass identified within the rectosigmoid junction. There is mild diffuse luminal narrowing with multiple diverticula noted within the sigmoid colon likely representing sequela of chronic diverticulitis. Nonetheless this examination cannot exclude possibility of a mucosal based mass or stricture. Based on clinical suspicion for underlying colonic neoplasm follow-up IV contrast enhanced CT abdomen pelvis can be performed for further evaluation. Reported By:
[2018-07-30] MEDS: NORCO 10/325 TAB PO PRN (16:30)
[2018-07-30] MEDS: ZOFRAN INJ 4 MG VIAL IVP PRN (17:53)
[2018-07-30] MEDS ORDERED: PHENERGAN INJ 25 MG IV PRN (19:45)
--- NOTE | 2018-07-30 20:18 | PCM.PROG ---
Progress Note - Progress Note for Day of Date of Exam: 07/30/18 - Subjective Subjective: WAS ADMITTED FOR GI BLEED, A SACRAL ULCER, AND HYPERNATREMIA. TODAY, SHE IS ALERT AND ORIENTED, LYING IN BED ON MORNING ROUNDS. SHE CONTINUES WITH COMPLAINTS OF MILD, DIFFUSE ABDOMINAL PAIN. SHE ALSO CONTINUES WITH WEAKNESS. ON EXAMINATION, HEART IS REGULAR IN RATE AND RHYTHM. BILATERAL LUNGS ARE NOTED WITH DIMINISHED LUNG SOUNDS THROUGHOUT. ABDOMEN IS ROUND, SOFT, AND NOTED WITH MILD, DIFFUSE TENDERNESS. NORMAL BOWEL SOUNDS NOTED IN ALL QUADRANTS. DRESSING TO SACRUM IS DRY AND INTACT AT THIS TIME. HER VITALS THIS MORNING ARE 98.2-69-18-97%-169/84. LABS WERE OBTAINED. ABNORMAL LAB VALUES INCLUDE THE FOLLOWING: RBC 2.40, HGB 8.4, HCT 25.1, CHLORIDE 112, GLUCOSE 150, AST 13, TOTAL PROTEIN 5.3, ALBUMIN 2.2. URINE CULTURE REPORTED GROWTH OF E.COLI. WE WILL CHANGE HER ANTIBIOTICS TO INVANZ 1GM IV DAILY TODAY. A BONE SCAN WAS DONE YESTERDAY AND WAS NORMAL. TOOK PATIENT DOWN FOR A COLONOSCOPY YESTERDAY, HOWEVER, REPORTED THAT IT WAS LIMITED WITH EXTENSIVE DIVERTICULOSIS AND STRICTURE OF THE DISTAL SIGMOID. HE COULDNT PASS THAT AREA. HE ORDERED FOR A BARIUM ENEMA TODAY. WE ARE IN AGREEMENT WITH PLAN. OTHERWISE, WE WILL CONTINUE WITH CURRENT PLAN OF CARE. WE WILL FOLLOW UP WITH AM LABS AND CONTINUE TO MONITOR. - Past Medical Family Social History Past Med/Fam/Surg Hx: No changes since H&P Allergies: Allergies codeine Allergy (Verified 05/16/17 22:24) - Review of Systems ROS: No change since H&P - Vital Signs and I&O's Vital Signs: Temperature 98.2 F Pulse Rate [Right Brachial] 80 Respiratory Rate 18 Blood Pressure [Left Calf] 150/90 Blood Pressure [Right Arm] 176/80 Blood Pressure [Left Arm] 188/89 Blood Pressure 183/77 O2 Sat by Pulse Oximetry 97 Intake and Output: Intake & Output 07/28/18 07/29/18 07/30/18 07/31/18 11:59 11:59 11:59 11:59 Intake Total 728 / 728 2616 / 2616 2455 / 2455 470 / 470 Output Total 1450 / 1450 3325 / 3325 900 / 900 Balance 728 / 728 1166 / 1166 -870 / -870 -430 / -430 - Physical Exam Oriented: Normal Eyes: Normal Ear: Normal Nose: Normal Throat: Normal Respiratory: Diminished Cardiovascular: Normal : Normal Auscultation: Bowel Sounds: Normal Palpation: Normal Tenderness: Normal, Diffuse, Mild Skin: Wound (Sacral wound measures 0.5 cm x 1 cm. Wound has tunneling that measures 0.5 cm @ 3 o'clock, 1 cm @ 6 o'clock, 1.5 cm @ 9 o'clock and 5.5 cm @ 12 o'clock) Musculoskeletal: Normal Psychiatric: Normal Mood Description: Calm Affect: Normal Speech Pattern: Clear, Appropriate - Laboratory and Diagnostics Result Diagrams: 07/30/18 05:10 07/30/18 05:10 Labs: 07/28/18 10:08 Urine,[place] Urine Culture - Final Escherichia Coli Laboratory WBC 5.8 X10^3/uL (3.6-10.0) 07/30/18 05:10 RBC 2.40 X10^6/uL (3.5-5.4) L 07/30/18 05:10 Hgb 8.4 g/dL (12.0-16.0) L 07/30/18 05:10 Hct 25.1 % (36.0-47.0) L 07/30/18 05:10 MCV 104.4 fL (80.0-100.0) H 07/30/18 05:10 MCH 35.0 pg (27.0-34.0) H 07/30/18 05:10 MCHC 33.5 g/dL (33.0-35.0) 07/30/18 05:10 RDW 15.2 % (11.6-16.5) 07/30/18 05:10 Plt Count 79 X10^3/uL (150.0-450.0) L 07/30/18 05:10 Plt Count Comment Decreased (ADEQUATE) A 07/29/18 05:26 MPV 9.7 fL (7.4-11.0) 07/30/18 05:10 Neut % (Auto) 72.9 % (42.0-75.0) 07/30/18 05:10 Lymph % (Auto) 18.2 % (21.0-51.0) L 07/30/18 05:10 [place] % (Auto) 7.3 % (0.0-13.0) 07/30/18 05:10 Eos % (Auto) 1.2 % (0.9-2.9) 07/30/18 05:10 Baso % (Auto) 0.4 % (0.2-1.0) 07/30/18 05:10 Neut # (Auto) 4.2 x10^3/uL (2.2-4.8) 07/30/18 05:10 Lymph # (Auto) 1.1 X10^3/uL (1.3-2.9) L 07/30/18 05:10 [place] # (Auto) 0.4 x10^3/uL (0.3-0.8) 07/30/18 05:10 Eos # (Auto) 0.1 x10^3/uL (0.0-0.2) 07/30/18 05:10 Baso # (Auto) 0.0 X10^3/uL (0.0-0.1) 07/30/18 05:10 Absolute Nucleated RBC 0.0 /100WBC 07/30/18 05:10 Plt Morphology Comment Normal (NORMAL) 07/29/18 05:26 RBC Morphology Normal (NORMAL) 07/29/18 05:26 Sodium 144 mmol/L (136-145) 07/30/18 05:10 Corrected Sodium 145 mmol/L (136-145) 07/30/18 05:10 Potassium 4.0 mmol/L (3.5-5.1) 07/30/18 05:10 Chloride 112 mmol/L (98-107) H 07/30/18 05:10 Carbon Dioxide 27.7 mmol/L (21-32) 07/30/18 05:10 BUN 14 mg/dL (7-18) 07/30/18 05:10 Creatinine 0.91 mg/dL (0.55-1.02) 07/30/18 05:10 Est GFR (MDRD) Af Amer > 60 (>60) 07/30/18 05:10 Est GFR (MDRD) Non-Af > 60 (>60) 07/30/18 05:10 Glucose 150 mg/dL (65-99) H 07/30/18 05:10 POC Glucose (mg/dL) 142 mg/dL (65-99) H 07/30/18 20:04 Calcium 8.6 mg/dL (8.5-10.1) 07/30/18 05:10 Corrected Calcium 10.0 mg/dL (8.5-10.1) 07/30/18 05:10 Phosphorus 3.0 mg/dL (2.6-4.7) 07/29/18 15:15 Magnesium 1.7 mg/dL (1.7-2.9) 07/29/18 15:15 Total Bilirubin 0.50 mg/dL (0.2-1.0) 07/30/18 05:10 AST 13 Units/L (15-37) L 07/30/18 05:10 ALT 17 Units/L (12-78) 07/30/18 05:10 Alkaline Phosphatase 89 Units/L (46-116) 07/30/18 05:10 Total Protein 5.3 g/dL (6.4-8.2) L 07/30/18 05:10 Albumin 2.2 g/dL (3.4-5.0) L 07/30/18 05:10 Globulin 3.1 g/dL (2.5-4.5) 07/30/18 05:10 Albumin/Globulin Ratio 0.7 Ratio (1.1-2.1) L 07/30/18 05:10 Prealbumin 8.7 mg/dL (18-35.7) L 07/30/18 05:10 Triglycerides 48 mg/dL (0-150) 07/29/18 15:15 Specimen Type Catherized urine 07/28/18 10:08 Urine Color Yellow (YELLOW) 07/28/18 10:08 Urine Appearance Cloudy (CLEAR) 07/28/18 10:08 Urine pH 6.5 (5.0 - 8.0) 07/28/18 10:08 Ur Specific [place] 1.015 (1.000-1.030) 07/28/18 10:08 Urine Protein 2+ (NEGATIVE) 07/28/18 10:08 Urine Glucose (UA) Negative (NEGATIVE) 07/28/18 10:08 Urine Ketones Negative (NEGATIVE) 07/28/18 10:08 Urine Occult Blood 5+ (NEGATIVE) 07/28/18 10:08 Urine Nitrite Negative (NEGATIVE) 07/28/18 10:08 Urine Bilirubin Negative (NEGATIVE) 07/28/18 10:08 Urine Urobilinogen Normal (NORMAL) 07/28/18 10:08 Ur Leukocyte Esterase 2+ (NEGATIVE) 07/28/18 10:08 Urine RBC 20-30 /HPF (NONE SEEN) 07/28/18 10:08 Urine WBC 30-50 /HPF (NONE SEEN) 07/28/18 10:08 Ur Squamous Epith Cells Many /HPF (NEGATIVE) 07/28/18 10:08 Calcium Oxalate Crystal Few /HPF (NEGATIVE) 07/28/18 10:08 Amorphous Sediment 1+ /HPF (NEGATIVE) 07/28/18 10:08 Urine Bacteria 3+ /HPF (NEGATIVE) 07/28/18 10:08 Urine Mucus Few /HPF (NEGATIVE) 07/28/18 10:08 Ur Culture Indicated? Yes/culture set up 07/28/18 10:08 Stool Description 3g,pastey,caban 07/28/18 18:46 Stl Occult Blood (IFOB) Positive (NEGATIVE) A 07/28/18 18:46 - Plan (1) GI bleed Status: Acute Qualifiers: GI bleed type/associated pathology: unspecified gastrointestinal hemorrhage type Qualified Code(s): K92.2 - Gastrointestinal hemorrhage, unspecified Plan: PEPCID IV, PROTONIX IV, BARIUM ENEMA TODAY, CONTINUE TO MONITOR (2) Sacral decubitus ulcer Status: Acute Qualifiers: Pressure injury stage: stage 3 Qualified Code(s): L89.153 - Pressure ulcer of sacral region, stage 3 Plan: CONSULT , WOUND CARE, CONTINUE TO MONITOR (3) Hypernatremia Status: Acute Plan: D5W AT 75ML/HR, CONTINUE TO MONITOR (4) Hypoalbuminemia Status: Acute Plan: ALBUMIN 25% IV DAILY TPN
[2018-07-30] MEDS: REQUIP PO SCH (21:08)
[2018-07-30] MEDS: TOPAMAX PO SCH (21:08)
[2018-07-30] MEDS: CRESTOR TAB 10 MG PO SCH (21:08)
[2018-07-30] MEDS: LEXAPRO PO SCH (21:08)
[2018-07-30] MEDS: GEODON PO SCH (21:08)
[2018-07-30] MEDS: ARICEPT TAB 10 MG PO SCH (21:09)
[2018-07-30] MEDS: MIRALAX POWDER (1 DOSE 17 G) PO SCH (21:09)
[2018-07-31] MEDS: CLINIMIX 4.25 %/10 % 1,000 ML with MVI INJ (ADULT) 10 ML, TRACE ELEMENTS INJ 10 ML, DRU... IV SCH ×6 (03:58→22:57)
[2018-07-31] MEDS: ARTIFICIAL TEARS DROPS AFFEYE SCH ×3 (05:20→23:01)
[2018-07-31] MEDS: NYSTATIN CREAM TOP SCH ×3 (05:20→23:02)
[2018-07-31] MEDS: ZOFRAN INJ 4 MG VIAL IVP PRN (05:21)
[2018-07-31 05:26] LABS: BASOPHILS # (AUTO) 0.1 X10^3/uL (0.0-0.1); EOSINOPHILS # (AUTO) 0.3 x10^3/uL (0.0-0.2); EOSINOPHILS % (AUTO) 5.3 % (0.9-2.9); HEMATOCRIT 23.5 % (36.0-47.0); HEMOGLOBIN 7.9 g/dL (12.0-16.0); MEAN CORPUSCULAR HEMOGLOBIN 34.8 pg (27.0-34.0); MEAN CORPUSCULAR HGB CONC 33.4 g/dL (33.0-35.0); MEAN PLATELET VOLUME 9.9 fL (7.4-11.0); MONOCYTES # (AUTO) 0.6 x10^3/uL (0.3-0.8); MONOCYTES % (AUTO) 10.7 % (0.0-13.0); NEUTROPHILS # (AUTO) 2.4 x10^3/uL (2.2-4.8); PLATELET COUNT 82 X10^3/uL (150.0-450.0); RED BLOOD COUNT 2.26 X10^6/uL (3.5-5.4); RED CELL DISTRIBUTION WIDTH 15.3 % (11.6-16.5); WHITE BLOOD COUNT 5.4 X10^3/uL (3.6-10.0)
[2018-07-31 05:35] LABS: ALBUMIN 2.3 g/dL (3.4-5.0); CALCIUM 8.8 mg/dL (8.5-10.1); CARBON DIOXIDE 26.3 mmol/L (21-32); COR CA(FOR HYPOALB) 10.2 mg/dL (8.5-10.1); CREATININE 1.29 mg/dL (0.55-1.02)
[2018-07-31 05:56] LABS: HYPOCHROMASIA 1+; PLATELET MORPHOLOGY COMMENT NORMAL (NORMAL)
[2018-07-31] MEDS: ALBUMIN HUMAN 25%- 100 ML 100 ML IV SCH (08:54)
[2018-07-31] MEDS: INVANZ INJ 1 GM VIAL 1 GM in NS 100 ML IV + SPIKE MINIBAG* 100 ML IV SCH (10:04)
[2018-07-31] MEDS ORDERED: NS 100 ML IV 100 ML IV ONE (11:49)
[2018-07-31] MEDS: PEPCID 20 MG IV PREMIX* 20 MG/50 ML BAG IV SCH ×2 (15:01→23:02)
[2018-07-31] MEDS: PROTONIX INJ 40 MG VIAL IVP SCH ×2 (15:01→22:56)
[2018-07-31] MEDS: ZINC SULFATE PO SCH ×2 (15:05→15:45)
[2018-07-31] MEDS: ASPIRIN EC 81 MG PO SCH ×2 (15:05→15:45)
[2018-07-31] MEDS: TAB-A-VITE PO SCH ×2 (15:06→15:44)
[2018-07-31] MEDS: ZESTRIL TAB 10 MG PO SCH ×2 (15:06→15:47)
[2018-07-31] MEDS: XANAX PO SCH ×3 (15:06→23:00)
[2018-07-31] MEDS: ZANTAC PO SCH ×2 (15:06→15:44)
[2018-07-31] MEDS: VITAMIN C PO SCH ×2 (15:07→15:46)
[2018-07-31] MEDS: NAMENDA TAB 10 MG PO SCH ×3 (15:07→23:01)
[2018-07-31] MEDS: NEURONTIN CAP 300 MG PO SCH ×3 (15:07→23:00)
[2018-07-31] MEDS: MOBIC TAB 15 MG PO SCH ×2 (15:08→15:45)
[2018-07-31] MEDS: COLACE CAP 100 MG PO SCH ×3 (15:08→23:00)
[2018-07-31] MEDS: PLAVIX PO SCH ×2 (15:08→15:47)
[2018-07-31] MEDS ORDERED: NS 500 ML IV 500 ML IV ONE (15:09)
--- NOTE | 2018-07-31 21:03 | DR.PROGNOT ---
Hospital Progress Notes - Progress Note for Day of: Progress Note Date: 07/31/18 - Chief Complaint Chief Complaint: feeling a little better with nutritional support and transfusion . abdominal CT could not be done because of the residual Barium . no active rectal bleeding now, - Past Medical Family Social History Past Med/Fam/Surg Hx: No changes since H&P Allergies: Allergies codeine Allergy (Verified 05/16/17 22:24) - Review Of Systems ROS: No change since H&P - Vital Signs Vital Signs: Temperature 98.2 F Pulse Rate [Right Brachial] 80 Respiratory Rate 20 Blood Pressure [Left Calf] 150/90 Blood Pressure [Right Arm] 176/80 Blood Pressure [Left Arm] 213/88 Blood Pressure 183/77 O2 Sat by Pulse Oximetry 96 - Physical Exam Oriented: Normal Eyes: Normal Ear: Normal Nose: Normal Throat: Normal Respiratory: Diminished Cardiovascular: Normal : Normal GI:Auscultation: Normal GI:Palpation: Normal GI: Tenderness: Diffuse (soft abdomen with mild diffuse tenderness .BS +), Mild Skin: Wound (Sacral wound is the same , stage III but small without necrosis or cellulitis now.) Musculoskeletal: Normal Psychiatric: Normal Mood Description: Calm Affect: Normal Speech Pattern: Clear, Appropriate - Laboratory and Diagnostics Result Diagrams: 07/31/18 05:10 07/31/18 05:10 Labs: 07/28/18 10:08 Urine,[place] Urine Culture - Final Escherichia Coli Laboratory WBC 5.4 X10^3/uL (3.6-10.0) 07/31/18 05:10 RBC 2.26 X10^6/uL (3.5-5.4) L 07/31/18 05:10 Hgb 7.9 g/dL (12.0-16.0) L 07/31/18 05:10 Hct 23.5 % (36.0-47.0) L 07/31/18 05:10 MCV 104.0 fL (80.0-100.0) H 07/31/18 05:10 MCH 34.8 pg (27.0-34.0) H 07/31/18 05:10 MCHC 33.4 g/dL (33.0-35.0) 07/31/18 05:10 RDW 15.3 % (11.6-16.5) 07/31/18 05:10 Plt Count 82 X10^3/uL (150.0-450.0) L 07/31/18 05:10 Plt Count Comment Decreased (ADEQUATE) A 07/31/18 05:10 MPV 9.9 fL (7.4-11.0) 07/31/18 05:10 Neut % (Auto) 45.0 % (42.0-75.0) 07/31/18 05:10 Lymph % (Auto) 38.0 % (21.0-51.0) 07/31/18 05:10 [place] % (Auto) 10.7 % (0.0-13.0) 07/31/18 05:10 Eos % (Auto) 5.3 % (0.9-2.9) H 07/31/18 05:10 Baso % (Auto) 1.0 % (0.2-1.0) 07/31/18 05:10 Neut # (Auto) 2.4 x10^3/uL (2.2-4.8) 07/31/18 05:10 Lymph # (Auto) 2.0 X10^3/uL (1.3-2.9) 07/31/18 05:10 [place] # (Auto) 0.6 x10^3/uL (0.3-0.8) 07/31/18 05:10 Eos # (Auto) 0.3 x10^3/uL (0.0-0.2) H 07/31/18 05:10 Baso # (Auto) 0.1 X10^3/uL (0.0-0.1) 07/31/18 05:10 Absolute Nucleated RBC 0.0 /100WBC 07/31/18 05:10 Plt Morphology Comment Normal (NORMAL) 07/31/18 05:10 RBC Morphology Abnormal (NORMAL) A 07/31/18 05:10 Hypochromasia 1+ A 07/31/18 05:10 Sodium 145 mmol/L (136-145) 07/31/18 05:10 Corrected Sodium 145 mmol/L (136-145) 07/31/18 05:10 Potassium 3.8 mmol/L (3.5-5.1) 07/31/18 05:10 Chloride 112 mmol/L (98-107) H 07/31/18 05:10 Carbon Dioxide 26.3 mmol/L (21-32) 07/31/18 05:10 BUN 21 mg/dL (7-18) H 07/31/18 05:10 Creatinine 1.29 mg/dL (0.55-1.02) H 07/31/18 05:10 Est GFR (MDRD) Af Amer 50 (>60) L 07/31/18 05:10 Est GFR (MDRD) Non-Af 41 (>60) L 07/31/18 05:10 Glucose 113 mg/dL (65-99) H 07/31/18 05:10 POC Glucose (mg/dL) 136 mg/dL (65-99) H 07/31/18 20:38 Calcium 8.8 mg/dL (8.5-10.1) 07/31/18 05:10 Corrected Calcium 10.2 mg/dL (8.5-10.1) H 07/31/18 05:10 Phosphorus 3.0 mg/dL (2.6-4.7) 07/29/18 15:15 Magnesium 1.7 mg/dL (1.7-2.9) 07/29/18 15:15 Total Bilirubin 0.30 mg/dL (0.2-1.0) 07/31/18 05:10 AST 35 Units/L (15-37) 07/31/18 05:10 ALT 28 Units/L (12-78) 07/31/18 05:10 Alkaline Phosphatase 81 Units/L (46-116) 07/31/18 05:10 Total Protein 5.0 g/dL (6.4-8.2) L 07/31/18 05:10 Albumin 2.3 g/dL (3.4-5.0) L 07/31/18 05:10 Globulin 2.7 g/dL (2.5-4.5) 07/31/18 05:10 Albumin/Globulin Ratio 0.9 Ratio (1.1-2.1) L 07/31/18 05:10 Prealbumin 8.7 mg/dL (18-35.7) L 07/30/18 05:10 Triglycerides 48 mg/dL (0-150) 07/29/18 15:15 PTH Intact 62 pg/mL (15-65) 07/29/18 05:26 Calcium (PTH Intact) 8.5 mg/dL 07/29/18 05:26 Specimen Type Catherized urine 07/28/18 10:08 Urine Color Yellow (YELLOW) 07/28/18 10:08 Urine Appearance Cloudy (CLEAR) 07/28/18 10:08 Urine pH 6.5 (5.0 - 8.0) 07/28/18 10:08 Ur Specific [place] 1.015 (1.000-1.030) 07/28/18 10:08 Urine Protein 2+ (NEGATIVE) 07/28/18 10:08 Urine Glucose (UA) Negative (NEGATIVE) 07/28/18 10:08 Urine Ketones Negative (NEGATIVE) 07/28/18 10:08 Urine Occult Blood 5+ (NEGATIVE) 07/28/18 10:08 Urine Nitrite Negative (NEGATIVE) 07/28/18 10:08 Urine Bilirubin Negative (NEGATIVE) 07/28/18 10:08 Urine Urobilinogen Normal (NORMAL) 07/28/18 10:08 Ur Leukocyte Esterase 2+ (NEGATIVE) 07/28/18 10:08 Urine RBC 20-30 /HPF (NONE SEEN) 07/28/18 10:08 Urine WBC 30-50 /HPF (NONE SEEN) 07/28/18 10:08 Ur Squamous Epith Cells Many /HPF (NEGATIVE) 07/28/18 10:08 Calcium Oxalate Crystal Few /HPF (NEGATIVE) 07/28/18 10:08 Amorphous Sediment 1+ /HPF (NEGATIVE) 07/28/18 10:08 Urine Bacteria 3+ /HPF (NEGATIVE) 07/28/18 10:08 Urine Mucus Few /HPF (NEGATIVE) 07/28/18 10:08 Ur Culture Indicated? 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 dehydration and electrolyte imbalance. hypoalbumine. same local care of the ulcer with packing and padding . nuttitional support. abdominal CT after clearing the Barium. EGD in the future - Problem Patient Problems: Patient Problems GI bleed (Acute) K92.2 Hypernatremia (Acute) E87.0 Hypoalbuminemia (Acute) E88.09
[2018-07-31] MEDS ORDERED: LEXAPRO ONE (21:38)
[2018-07-31] MEDS: REQUIP PO SCH (23:00)
[2018-07-31] MEDS: CRESTOR TAB 10 MG PO SCH (23:00)
[2018-07-31] MEDS: TOPAMAX PO SCH (23:00)
[2018-07-31] MEDS: LEXAPRO PO SCH (23:00)
[2018-07-31] MEDS: ARICEPT TAB 10 MG PO SCH (23:00)
[2018-07-31] MEDS: GEODON PO SCH (23:01)
[2018-07-31] MEDS: MIRALAX POWDER (1 DOSE 17 G) PO SCH (23:02)
[2018-08-01] MEDS: NORCO 10/325 TAB PO PRN (01:01)
[2018-08-01 05:46] LABS: ALANINE AMINOTRANSFERASE 18 Units/L (12-78); ALBUMIN 2.7 g/dL (3.4-5.0); ALKALINE PHOSPHATASE 86 Units/L (46-116); ASPARTATE AMINO TRANSFERASE 31 Units/L (15-37); BLOOD UREA NITROGEN 25 mg/dL (7-18); CALCIUM 8.9 mg/dL (8.5-10.1); CARBON DIOXIDE 25.6 mmol/L (21-32); CHLORIDE 112 mmol/L (98-107); COR CA(FOR HYPOALB) 9.9 mg/dL (8.5-10.1); COR NA(FOR HYPERGLY) 145 mmol/L (136-145); CREATININE 0.85 mg/dL (0.55-1.02); SODIUM 144 mmol/L (136-145); TOTAL PROTEIN 5.4 g/dL (6.4-8.2); eGFR NON BLACK RACES > 60 (>60)
[2018-08-01] MEDS: K-DUR TAB 20 MEQ PO PRN ×2 (06:09→20:23)
[2018-08-01] MEDS: NYSTATIN CREAM TOP SCH ×3 (06:10→21:33)
[2018-08-01] MEDS: ARTIFICIAL TEARS DROPS AFFEYE SCH ×3 (06:10→21:33)
[2018-08-01 07:37] LABS: BASOPHILS % (AUTO) 0.5 % (0.2-1.0); EOSINOPHILS # (AUTO) 0.5 x10^3/uL (0.0-0.2); EOSINOPHILS % (AUTO) 8.1 % (0.9-2.9); HEMATOCRIT 22.5 % (36.0-47.0); HEMOGLOBIN 7.7 g/dL (12.0-16.0); LYMPHOCYTES # (AUTO) 1.9 X10^3/uL (1.3-2.9); LYMPHOCYTES % (AUTO) 33.4 % (21.0-51.0); MEAN CORPUSCULAR HGB CONC 34.1 g/dL (33.0-35.0); MEAN CORPUSCULAR VOLUME 102.6 fL (80.0-100.0); MEAN PLATELET VOLUME 9.2 fL (7.4-11.0); MONOCYTES # (AUTO) 0.7 x10^3/uL (0.3-0.8); MONOCYTES % (AUTO) 12.3 % (0.0-13.0); NEUTROPHILS # (AUTO) 2.6 x10^3/uL (2.2-4.8); NEUTROPHILS % (AUTO) 45.7 % (42.0-75.0); PLATELET COUNT 80 X10^3/uL (150.0-450.0); RED CELL DISTRIBUTION WIDTH 15.2 % (11.6-16.5); WHITE BLOOD COUNT 5.7 X10^3/uL (3.6-10.0)
[2018-08-01 07:48] LABS: HYPOCHROMASIA SLIGHT; PLATELET MORPHOLOGY COMMENT NORMAL (NORMAL)
--- NOTE | 2018-08-01 08:16 | PCM.PROG ---
Progress Note - Progress Note for Day of Date of Exam: 07/31/18 - Subjective Subjective: WAS ADMITTED FOR GI BLEED, A SACRAL ULCER, AND HYPERNATREMIA. TODAY, SHE IS ALERT AND ORIENTED, LYING IN BED ON MORNING ROUNDS. SHE CONTINUES WITH COMPLAINTS OF MILD, DIFFUSE ABDOMINAL PAIN. SHE ALSO CONTINUES WITH WEAKNESS. ON EXAMINATION, HEART IS REGULAR IN RATE AND RHYTHM. BILATERAL LUNGS ARE NOTED WITH DIMINISHED LUNG SOUNDS THROUGHOUT. ABDOMEN IS ROUND, SOFT, AND NOTED WITH MILD, DIFFUSE TENDERNESS. NORMAL BOWEL SOUNDS NOTED IN ALL QUADRANTS. DRESSING TO SACRUM IS DRY AND INTACT AT THIS TIME. HER VITALS THIS MORNING ARE 98.0-62-14-97%-146/67. LABS WERE OBTAINED. ABNORMAL LAB VALUES INCLUDE THE FOLLOWING: RBC 2.26, HGB 7.9, HCT 23.5, PLT COUNT 82, CHLORIDE 112, BUN 21, CREATININE 1.29, GLUCOSE 113, TOTAL PROTEIN 5.0, ALBUMIN 2.3. BARIUM ENEMA DONE YESTERDAY, HOWEVER, EXAM WAS LIMITED DUE TO INABILITY TO TOLERATE PROCEDURE. AN ABDOMEN/PELVIS CT WITH CONTRAST RECOMMENDED. WE ARE IN AGREEMENT WITH PLAN. SHE IS CURRENTLY RECEIVING IV ANTIBIOTICS AND NUTRITIONAL SUPPORT. OTHERWISE, WE WILL CONTINUE WITH CURRENT PLAN OF CARE. WE WILL FOLLOW UP WITH AM LABS AND CONTINUE TO MONITOR. - Past Medical Family Social History Past Med/Fam/Surg Hx: No changes since H&P Allergies: Allergies codeine Allergy (Verified 05/16/17 22:24) - Review of Systems ROS: No change since H&P - Vital Signs and I&O's Vital Signs: Temperature 98.2 F Pulse Rate [Left Brachial] 85 Pulse Rate [Right Brachial] 86 Respiratory Rate 18 Blood Pressure [Left Calf] 150/90 Blood Pressure [Right Arm] 176/82 Blood Pressure [Left Arm] 172/68 Blood Pressure 183/77 O2 Sat by Pulse Oximetry 96 Intake and Output: Intake & Output 07/29/18 07/30/18 07/31/18 08/01/18 11:59 11:59 11:59 11:59 Intake Total 2616 / 2616 2455 / 2455 1260 / 1260 1703 / 1703 Output Total 1450 / 1450 3325 / 3325 1275 / 1275 2500 / 2500 Balance 1166 / 1166 -870 / -870 -15 / -15 -797 / -797 - Physical Exam Oriented: Normal Eyes: Normal Ear: Normal Nose: Normal Throat: Normal Respiratory: Diminished Cardiovascular: Normal : Normal Auscultation: Bowel Sounds: Normal Palpation: Normal Tenderness: Diffuse (soft abdomen with mild diffuse tenderness .BS +), Mild Skin: Wound (Sacral wound is the same , stage III but small without necrosis or cellulitis now.) Musculoskeletal: Normal Psychiatric: Normal Mood Description: Calm Affect: Normal Speech Pattern: Clear, Appropriate - Laboratory and Diagnostics Result Diagrams: 08/01/18 07:15 08/01/18 05:00 Labs: 07/28/18 10:08 Urine,[place] Urine Culture - Final Escherichia Coli Laboratory WBC 5.7 X10^3/uL (3.6-10.0) 08/01/18 07:15 RBC 2.20 X10^6/uL (3.5-5.4) L 08/01/18 07:15 Hgb 7.7 g/dL (12.0-16.0) L 08/01/18 07:15 Hct 22.5 % (36.0-47.0) L 08/01/18 07:15 MCV 102.6 fL (80.0-100.0) H 08/01/18 07:15 MCH 35.0 pg (27.0-34.0) H 08/01/18 07:15 MCHC 34.1 g/dL (33.0-35.0) 08/01/18 07:15 RDW 15.2 % (11.6-16.5) 08/01/18 07:15 Plt Count 80 X10^3/uL (150.0-450.0) L 08/01/18 07:15 Plt Count Comment Decreased (ADEQUATE) A 08/01/18 07:15 MPV 9.2 fL (7.4-11.0) 08/01/18 07:15 Neut % (Auto) 45.7 % (42.0-75.0) 08/01/18 07:15 Lymph % (Auto) 33.4 % (21.0-51.0) 08/01/18 07:15 [place] % (Auto) 12.3 % (0.0-13.0) 08/01/18 07:15 Eos % (Auto) 8.1 % (0.9-2.9) H 08/01/18 07:15 Baso % (Auto) 0.5 % (0.2-1.0) 08/01/18 07:15 Neut # (Auto) 2.6 x10^3/uL (2.2-4.8) 08/01/18 07:15 Lymph # (Auto) 1.9 X10^3/uL (1.3-2.9) 08/01/18 07:15 [place] # (Auto) 0.7 x10^3/uL (0.3-0.8) 08/01/18 07:15 Eos # (Auto) 0.5 x10^3/uL (0.0-0.2) H 08/01/18 07:15 Baso # (Auto) 0.0 X10^3/uL (0.0-0.1) 08/01/18 07:15 Absolute Nucleated RBC 0.1 /100WBC 08/01/18 07:15 Plt Morphology Comment Normal (NORMAL) 08/01/18 07:15 RBC Morphology Abnormal (NORMAL) A 08/01/18 07:15 Hypochromasia Slight A 08/01/18 07:15 Macrocytosis Slight A 08/01/18 07:15 Sodium 144 mmol/L (136-145) 08/01/18 05:00 Corrected Sodium 145 mmol/L (136-145) 08/01/18 05:00 Potassium 3.4 mmol/L (3.5-5.1) L 08/01/18 05:00 Chloride 112 mmol/L (98-107) H 08/01/18 05:00 Carbon Dioxide 25.6 mmol/L (21-32) 08/01/18 05:00 BUN 25 mg/dL (7-18) H 08/01/18 05:00 Creatinine 0.85 mg/dL (0.55-1.02) 08/01/18 05:00 Est GFR (MDRD) Af Amer > 60 (>60) 08/01/18 05:00 Est GFR (MDRD) Non-Af > 60 (>60) 08/01/18 05:00 Glucose 125 mg/dL (65-99) H 08/01/18 05:00 POC Glucose (mg/dL) 123 mg/dL (65-99) H 08/01/18 05:24 Calcium 8.9 mg/dL (8.5-10.1) 08/01/18 05:00 Corrected Calcium 9.9 mg/dL (8.5-10.1) 08/01/18 05:00 Phosphorus 3.0 mg/dL (2.6-4.7) 07/29/18 15:15 Magnesium 1.7 mg/dL (1.7-2.9) 07/29/18 15:15 Total Bilirubin 0.30 mg/dL (0.2-1.0) 08/01/18 05:00 AST 31 Units/L (15-37) 08/01/18 05:00 ALT 18 Units/L (12-78) 08/01/18 05:00 Alkaline Phosphatase 86 Units/L (46-116) 08/01/18 05:00 Total Protein 5.4 g/dL (6.4-8.2) L 08/01/18 05:00 Albumin 2.7 g/dL (3.4-5.0) L 08/01/18 05:00 Globulin 2.7 g/dL (2.5-4.5) 08/01/18 05:00 Albumin/Globulin Ratio 1.0 Ratio (1.1-2.1) L 08/01/18 05:00 Prealbumin 8.7 mg/dL (18-35.7) L 07/30/18 05:10 Triglycerides 48 mg/dL (0-150) 07/29/18 15:15 PTH Intact 62 pg/mL (15-65) 07/29/18 05:26 Calcium (PTH Intact) 8.5 mg/dL 07/29/18 05:26 Specimen Type Catherized urine 07/28/18 10:08 Urine Color Yellow (YELLOW) 07/28/18 10:08 Urine Appearance Cloudy (CLEAR) 07/28/18 10:08 Urine pH 6.5 (5.0 - 8.0) 07/28/18 10:08 Ur Specific [place] 1.015 (1.000-1.030) 07/28/18 10:08 Urine Protein 2+ (NEGATIVE) 07/28/18 10:08 Urine Glucose (UA) Negative (NEGATIVE) 07/28/18 10:08 Urine Ketones Negative (NEGATIVE) 07/28/18 10:08 Urine Occult Blood 5+ (NEGATIVE) 07/28/18 10:08 Urine Nitrite Negative (NEGATIVE) 07/28/18 10:08 Urine Bilirubin Negative (NEGATIVE) 07/28/18 10:08 Urine Urobilinogen Normal (NORMAL) 07/28/18 10:08 Ur Leukocyte Esterase 2+ (NEGATIVE) 07/28/18 10:08 Urine RBC 20-30 /HPF (NONE SEEN) 07/28/18 10:08 Urine WBC 30-50 /HPF (NONE SEEN) 07/28/18 10:08 Ur Squamous Epith Cells Many /HPF (NEGATIVE) 07/28/18 10:08 Calcium Oxalate Crystal Few /HPF (NEGATIVE) 07/28/18 10:08 Amorphous Sediment 1+ /HPF (NEGATIVE) 07/28/18 10:08 Urine Bacteria 3+ /HPF (NEGATIVE) 07/28/18 10:08 Urine Mucus Few /HPF (NEGATIVE) 07/28/18 10:08 Ur Culture Indicated? Yes/culture set up 07/28/18 10:08 Stool Description 3g,pastey,caban 07/28/18 18:46 Stl Occult Blood (IFOB) Positive (NEGATIVE) A 07/28/18 18:46 - Plan (1) GI bleed Status: Acute Qualifiers: GI bleed type/associated pathology: unspecified gastrointestinal hemorrhage type Qualified Code(s): K92.2 - Gastrointestinal hemorrhage, unspecified Plan: PEPCID IV, PROTONIX IV, ABDOMEN/PELVIS CT WITH CONTRAST, CONTINUE TO MONITOR (2) Sacral decubitus ulcer Status: Acute Qualifiers: Pressure injury stage: stage 3 Qualified Code(s): L89.153 - Pressure ulcer of sacral region, stage 3 Plan: CONSULT , WOUND CARE, CONTINUE TO MONITOR (3) Hypernatremia Status: Acute Plan: D5W AT 75ML/HR, CONTINUE TO MONITOR (4) Hypoalbuminemia Status: Acute Plan: ALBUMIN 25% IV DAILY TPN
[2018-08-01 08:21] LABS: IRON 77 ug/dL (50-175); TOTAL IRON BINDING CAPACITY 101 ug/dL (250-450)
[2018-08-01] MEDS: TAB-A-VITE PO SCH (08:51)
[2018-08-01] MEDS: ZINC SULFATE PO SCH (08:51)
[2018-08-01] MEDS: NAMENDA TAB 10 MG PO SCH ×2 (08:51→20:23)
[2018-08-01] MEDS: ZANTAC PO SCH (08:51)
[2018-08-01] MEDS: XANAX PO SCH ×2 (08:52→20:23)
[2018-08-01] MEDS: ZESTRIL TAB 10 MG PO SCH (08:52)
[2018-08-01] MEDS: MOBIC TAB 15 MG PO SCH (08:52)
[2018-08-01] MEDS: VITAMIN C PO SCH (08:52)
[2018-08-01] MEDS: NEURONTIN CAP 300 MG PO SCH ×2 (08:52→20:22)
[2018-08-01] MEDS: COLACE CAP 100 MG PO SCH ×2 (08:52→20:23)
[2018-08-01] MEDS: ASPIRIN EC 81 MG PO SCH (08:52)
[2018-08-01] MEDS: INVANZ INJ 1 GM VIAL 1 GM in NS 100 ML IV + SPIKE MINIBAG* 100 ML IV SCH (08:53)
[2018-08-01] MEDS: PLAVIX PO SCH (08:53)
[2018-08-01] MEDS: PROTONIX INJ 40 MG VIAL IVP SCH ×2 (08:54→20:23)
[2018-08-01] MEDS ORDERED: CATAPRES-TTS-3 TD SCH (09:00)
[2018-08-01] MEDS: PEPCID 20 MG IV PREMIX* 20 MG/50 ML BAG IV SCH ×2 (10:11→20:22)
[2018-08-01] MEDS: ALBUMIN HUMAN 25%- 100 ML 100 ML IV SCH ×2 (11:08→11:10)
--- NOTE | 2018-08-01 14:46 | RAD ---
HISTORY: Retained barium Study: Flat view of the abdomen. Comparison: None Findings: Evaluation of the abdomen demonstrates a moderate amount of barium retained within the colon. No free air. No pathological soft tissue mass or calcification can be observed. The bony structures are grossly intact. IMPRESSION: 1. Moderate amount of barium retained within the colon. Reported By:
[2018-08-01 15:24] LABS: MAGNESIUM 1.7 mg/dL (1.7-2.9); PHOSPHORUS 1.1 mg/dL (2.6-4.7)
[2018-08-01] MEDS: CLINIMIX 4.25 %/10 % 1,000 ML with MVI INJ (ADULT) 10 ML, TRACE ELEMENTS INJ 10 ML, DRU... IV SCH ×4 (16:40)
[2018-08-01] MEDS ORDERED: DULCOLAX TAB EC 5 MG PO ONE (17:00)
[2018-08-01] MEDS: MIRALAX POWDER (1 DOSE 17 G) PO SCH ×2 (17:16→20:24)
--- NOTE | 2018-08-01 17:59 | DR.PROGNOT ---
Hospital Progress Notes - Progress Note for Day of: Progress Note Date: 08/01/18 - Chief Complaint Chief Complaint: feeling a little better with nutritional support and transfusion . abdominal CT could not be done because of the residual Barium . no active rectal bleeding now, but stool was positive for blood . B12 and Folate are normal . Ca++ is above normal and PTH at the upper limits. sacral ulcer is the same . - Past Medical Family Social History Past Med/Fam/Surg Hx: No changes since H&P Allergies: Allergies codeine Allergy (Verified 05/16/17 22:24) - Review Of Systems ROS: No change since H&P - Vital Signs Vital Signs: Temperature 97.7 F Pulse Rate [Left Brachial] 85 Pulse Rate [Right Brachial] 68 Respiratory Rate 18 Blood Pressure [Left Calf] 150/90 Blood Pressure [Right Arm] 161/72 Blood Pressure [Left Arm] 172/68 Blood Pressure 183/77 O2 Sat by Pulse Oximetry 95 - Physical Exam Oriented: Normal Eyes: Normal Ear: Normal Nose: Normal Throat: Normal Respiratory: Diminished Cardiovascular: Normal : Normal GI:Auscultation: Normal GI:Palpation: Normal GI: Tenderness: Diffuse (soft abdomen with mild diffuse tenderness .BS +), Mild Skin: Wound (Sacral wound is the same , stage III but small without necrosis or cellulitis now.) Musculoskeletal: Normal Psychiatric: Normal Mood Description: Calm Affect: Normal Speech Pattern: Clear, Appropriate - Laboratory and Diagnostics Result Diagrams: 08/01/18 07:15 08/01/18 05:00 Labs: 07/28/18 10:08 Urine,[place] Urine Culture - Final Escherichia Coli Laboratory WBC 5.7 X10^3/uL (3.6-10.0) 08/01/18 07:15 RBC 2.20 X10^6/uL (3.5-5.4) L 08/01/18 07:15 Hgb 7.7 g/dL (12.0-16.0) L 08/01/18 07:15 Hct 22.5 % (36.0-47.0) L 08/01/18 07:15 MCV 102.6 fL (80.0-100.0) H 08/01/18 07:15 MCH 35.0 pg (27.0-34.0) H 08/01/18 07:15 MCHC 34.1 g/dL (33.0-35.0) 08/01/18 07:15 RDW 15.2 % (11.6-16.5) 08/01/18 07:15 Plt Count 80 X10^3/uL (150.0-450.0) L 08/01/18 07:15 Plt Count Comment Decreased (ADEQUATE) A 08/01/18 07:15 MPV 9.2 fL (7.4-11.0) 08/01/18 07:15 Neut % (Auto) 45.7 % (42.0-75.0) 08/01/18 07:15 Lymph % (Auto) 33.4 % (21.0-51.0) 08/01/18 07:15 [place] % (Auto) 12.3 % (0.0-13.0) 08/01/18 07:15 Eos % (Auto) 8.1 % (0.9-2.9) H 08/01/18 07:15 Baso % (Auto) 0.5 % (0.2-1.0) 08/01/18 07:15 Neut # (Auto) 2.6 x10^3/uL (2.2-4.8) 08/01/18 07:15 Lymph # (Auto) 1.9 X10^3/uL (1.3-2.9) 08/01/18 07:15 [place] # (Auto) 0.7 x10^3/uL (0.3-0.8) 08/01/18 07:15 Eos # (Auto) 0.5 x10^3/uL (0.0-0.2) H 08/01/18 07:15 Baso # (Auto) 0.0 X10^3/uL (0.0-0.1) 08/01/18 07:15 Absolute Nucleated RBC 0.1 /100WBC 08/01/18 07:15 Plt Morphology Comment Normal (NORMAL) 08/01/18 07:15 RBC Morphology Abnormal (NORMAL) A 08/01/18 07:15 Hypochromasia Slight A 08/01/18 07:15 Macrocytosis Slight A 08/01/18 07:15 Sodium 144 mmol/L (136-145) 08/01/18 05:00 Corrected Sodium 145 mmol/L (136-145) 08/01/18 05:00 Potassium 3.4 mmol/L (3.5-5.1) L 08/01/18 05:00 Chloride 112 mmol/L (98-107) H 08/01/18 05:00 Carbon Dioxide 25.6 mmol/L (21-32) 08/01/18 05:00 BUN 25 mg/dL (7-18) H 08/01/18 05:00 Creatinine 0.85 mg/dL (0.55-1.02) 08/01/18 05:00 Est GFR (MDRD) Af Amer > 60 (>60) 08/01/18 05:00 Est GFR (MDRD) Non-Af > 60 (>60) 08/01/18 05:00 Glucose 125 mg/dL (65-99) H 08/01/18 05:00 POC Glucose (mg/dL) 123 mg/dL (65-99) H 08/01/18 05:24 Calcium 8.9 mg/dL (8.5-10.1) 08/01/18 05:00 Corrected Calcium 9.9 mg/dL (8.5-10.1) 08/01/18 05:00 Phosphorus 1.1 mg/dL (2.6-4.7) L 08/01/18 14:59 Magnesium 1.7 mg/dL (1.7-2.9) 08/01/18 14:59 Iron 77 ug/dL (50-175) 08/01/18 07:15 TIBC 101 ug/dL (250-450) L 08/01/18 07:15 % Saturation 76.2 % (11.0-46.0) H 08/01/18 07:15 Total Bilirubin 0.30 mg/dL (0.2-1.0) 08/01/18 05:00 AST 31 Units/L (15-37) 08/01/18 05:00 ALT 18 Units/L (12-78) 08/01/18 05:00 Alkaline Phosphatase 86 Units/L (46-116) 08/01/18 05:00 Total Protein 5.4 g/dL (6.4-8.2) L 08/01/18 05:00 Albumin 2.7 g/dL (3.4-5.0) L 08/01/18 05:00 Globulin 2.7 g/dL (2.5-4.5) 08/01/18 05:00 Albumin/Globulin Ratio 1.0 Ratio (1.1-2.1) L 08/01/18 05:00 Prealbumin 8.7 mg/dL (18-35.7) L 07/30/18 05:10 Triglycerides 40 mg/dL (0-150) 08/01/18 14:59 Carcinoembryonic Ag 2.9 ng/mL (0.0-3.0) 07/30/18 05:10 Vitamin B12 735 pg/mL (193-986) 08/01/18 07:15 Folate > 20.0 ng/mL (>8.6) 08/01/18 07:15 PTH Intact 62 pg/mL (15-65) 07/29/18 05:26 Calcium (PTH Intact) 8.5 mg/dL 07/29/18 05:26 Specimen Type Catherized urine 07/28/18 10:08 Urine Color Yellow (YELLOW) 07/28/18 10:08 Urine Appearance Cloudy (CLEAR) 07/28/18 10:08 Urine pH 6.5 (5.0 - 8.0) 07/28/18 10:08 Ur Specific [place] 1.015 (1.000-1.030) 07/28/18 10:08 Urine Protein 2+ (NEGATIVE) 07/28/18 10:08 Urine Glucose (UA) Negative (NEGATIVE) 07/28/18 10:08 Urine Ketones Negative (NEGATIVE) 07/28/18 10:08 Urine Occult Blood 5+ (NEGATIVE) 07/28/18 10:08 Urine Nitrite Negative (NEGATIVE) 07/28/18 10:08 Urine Bilirubin Negative (NEGATIVE) 07/28/18 10:08 Urine Urobilinogen Normal (NORMAL) 07/28/18 10:08 Ur Leukocyte Esterase 2+ (NEGATIVE) 07/28/18 10:08 Urine RBC 20-30 /HPF (NONE SEEN) 07/28/18 10:08 Urine WBC 30-50 /HPF (NONE SEEN) 07/28/18 10:08 Ur Squamous Epith Cells Many /HPF (NEGATIVE) 07/28/18 10:08 Calcium Oxalate Crystal Few /HPF (NEGATIVE) 07/28/18 10:08 Amorphous Sediment 1+ /HPF (NEGATIVE) 07/28/18 10:08 Urine Bacteria 3+ /HPF (NEGATIVE) 07/28/18 10:08 Urine Mucus Few /HPF (NEGATIVE) 07/28/18 10:08 Ur Culture Indicated? 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 dehydration and electrolyte imbalance. hypoalbumine. same local care of the ulcer with packing and padding . nuttitional support. abdominal CT after clearing the Barium. EGD in the future - Problem Patient Problems: Patient Problems GI bleed (Acute) K92.2 Hypernatremia (Acute) E87.0 Hypoalbuminemia (Acute) E88.09
[2018-08-01] MEDS ORDERED: LEXAPRO ONE (20:02)
[2018-08-01] MEDS: REQUIP PO SCH (20:22)
[2018-08-01] MEDS: TOPAMAX PO SCH (20:23)
[2018-08-01] MEDS: CRESTOR TAB 10 MG PO SCH (20:23)
[2018-08-01] MEDS: ARICEPT TAB 10 MG PO SCH (20:23)
[2018-08-01] MEDS: LEXAPRO PO SCH (20:23)
[2018-08-01] MEDS: GEODON PO SCH (20:23)
[2018-08-01] MEDS: ZOFRAN INJ 4 MG VIAL IVP PRN (20:33)
[2018-08-02 05:19] LABS: BASOPHILS # (AUTO) 0.1 X10^3/uL (0.0-0.1); BASOPHILS % (AUTO) 0.9 % (0.2-1.0); EOSINOPHILS # (AUTO) 0.7 x10^3/uL (0.0-0.2); EOSINOPHILS % (AUTO) 11.6 % (0.9-2.9); HEMATOCRIT 23.8 % (36.0-47.0); HEMOGLOBIN 7.8 g/dL (12.0-16.0); LYMPHOCYTES # (AUTO) 1.6 X10^3/uL (1.3-2.9); LYMPHOCYTES % (AUTO) 27.7 % (21.0-51.0); MEAN CORPUSCULAR HEMOGLOBIN 34.4 pg (27.0-34.0); MEAN CORPUSCULAR HGB CONC 32.9 g/dL (33.0-35.0); MEAN CORPUSCULAR VOLUME 104.7 fL (80.0-100.0); MEAN PLATELET VOLUME 9.3 fL (7.4-11.0); MONOCYTES # (AUTO) 0.7 x10^3/uL (0.3-0.8); MONOCYTES % (AUTO) 11.7 % (0.0-13.0); NEUTROPHILS # (AUTO) 2.8 x10^3/uL (2.2-4.8); NEUTROPHILS % (AUTO) 48.1 % (42.0-75.0); PLATELET COUNT 95 X10^3/uL (150.0-450.0); RED BLOOD COUNT 2.27 X10^6/uL (3.5-5.4); RED CELL DISTRIBUTION WIDTH 15.2 % (11.6-16.5); WHITE BLOOD COUNT 5.9 X10^3/uL (3.6-10.0)
[2018-08-02 05:25] LABS: BLOOD UREA NITROGEN 30 mg/dL (7-18); CALCIUM 9.4 mg/dL (8.5-10.1); CARBON DIOXIDE 26.2 mmol/L (21-32); CHLORIDE 114 mmol/L (98-107); COR NA(FOR HYPERGLY) 147 mmol/L (136-145); CREATININE 0.82 mg/dL (0.55-1.02); SODIUM 146 mmol/L (136-145); eGFR NON BLACK RACES > 60 (>60)
[2018-08-02] MEDS: CLINIMIX 4.25 %/10 % 1,000 ML with MVI INJ (ADULT) 10 ML, TRACE ELEMENTS INJ 10 ML, DRU... IV SCH ×4 (05:38)
[2018-08-02] MEDS: ARTIFICIAL TEARS DROPS AFFEYE SCH (05:38)
[2018-08-02] MEDS: NYSTATIN CREAM TOP SCH (05:39)
[2018-08-02 05:50] LABS: PLATELET MORPHOLOGY COMMENT NORMAL (NORMAL); POLYCHROMASIA SLIGHT
[2018-08-02 05:51] LABS: ANISOCYTOSIS SLIGHT
--- NOTE | 2018-08-02 08:30 | PCM.PROG ---
Progress Note - Progress Note for Day of Date of Exam: 08/01/18 - Subjective Subjective: WAS ADMITTED FOR GI BLEED, A SACRAL ULCER, AND HYPERNATREMIA. TODAY, SHE IS ALERT AND ORIENTED, LYING IN BED ON MORNING ROUNDS. SHE CONTINUES WITH COMPLAINTS OF MILD, DIFFUSE ABDOMINAL PAIN, BUT REPORTS SLIGHT IMPROVEMENT. SHE ALSO CONTINUES WITH WEAKNESS. THERE IS NO ACTIVE BLEEDIN G NOTED AT THIS TIME. ON EXAMINATION, HEART IS REGULAR IN RATE AND RHYTHM. BILATERAL LUNGS ARE NOTED WITH DIMINISHED LUNG SOUNDS THROUGHOUT. ABDOMEN IS ROUND, SOFT, AND NOTED WITH MILD, DIFFUSE TENDERNESS. NORMAL BOWEL SOUNDS NOTED IN ALL QUADRANTS. DRESSING TO SACRUM IS DRY AND INTACT AT THIS TIME. HER VITALS THIS MORNING ARE 97.7-68-18-95%-161/72. LABS WERE OBTAINED. ABNORMAL LAB VALUES INCLUDE THE FOLLOWING: RBC 2.20, HGB 7.7, HCT 22.5, PLT 80, POTASSIUM 3.4, CHLORIDE 112, BUN 25, GLUCOSE 125, TOTAL PROTEIN 5.4, ALBUMIN 2.7. ABD/PELVIS CT WAS UNABLE TO BE DONE DUE TO A MODERATE AMOUNT OF RETAINED BARIUM. IT WILL BE ATTEMPTED AGAIN TOMORROW. SHE IS CURRENTLY RECEIVING IV ANTIBIOTICS , WOUND CARE, AND NUTRITIONAL SUPPORT. WE WILL CONTINUE WITH CURRENT PLAN OF CARE TODAY. WE WILL FOLLOW UP WITH AM LABS AND CONTINUE TO MONITOR. - Past Medical Family Social History Past Med/Fam/Surg Hx: No changes since H&P Allergies: Allergies codeine Allergy (Verified 05/16/17 22:24) - Review of Systems ROS: No change since H&P - Vital Signs and I&O's Vital Signs: Temperature 97.2 F Pulse Rate [Left Brachial] 80 Pulse Rate [Right Brachial] 68 Respiratory Rate 18 Blood Pressure [Left Calf] 150/90 Blood Pressure [Right Arm] 161/72 Blood Pressure [Left Arm] 160/72 Blood Pressure 183/77 O2 Sat by Pulse Oximetry 97 Intake and Output: Intake & Output 07/30/18 07/31/18 08/01/18 08/02/18 11:59 11:59 11:59 11:59 Intake Total 2455 / 2455 1260 / 1260 1703 / 1703 1999 / 1999 Output Total 3325 / 3325 1275 / 1275 2500 / 2500 2100 / 2100 Balance -870 / -870 -15 / -15 -797 / -797 -100 / -100 - Physical Exam Oriented: Normal Eyes: Normal Ear: Normal Nose: Normal Throat: Normal Respiratory: Diminished Cardiovascular: Normal : Normal Auscultation: Bowel Sounds: Normal Tenderness: Diffuse (soft abdomen with mild diffuse tenderness .BS +), Mild Skin: Wound (Sacral wound is the same , stage III but small without necrosis or cellulitis now.) Musculoskeletal: Normal Psychiatric: Normal Mood Description: Calm Affect: Normal Speech Pattern: Clear, Appropriate - Laboratory and Diagnostics Result Diagrams: 08/02/18 04:54 08/02/18 04:54 Labs: 07/28/18 10:08 Urine,[place] Urine Culture - Final Escherichia Coli Laboratory WBC 5.9 X10^3/uL (3.6-10.0) 08/02/18 04:54 RBC 2.27 X10^6/uL (3.5-5.4) L 08/02/18 04:54 Hgb 7.8 g/dL (12.0-16.0) L 08/02/18 04:54 Hct 23.8 % (36.0-47.0) L 08/02/18 04:54 MCV 104.7 fL (80.0-100.0) H 08/02/18 04:54 MCH 34.4 pg (27.0-34.0) H 08/02/18 04:54 MCHC 32.9 g/dL (33.0-35.0) L 08/02/18 04:54 RDW 15.2 % (11.6-16.5) 08/02/18 04:54 Plt Count 95 X10^3/uL (150.0-450.0) L 08/02/18 04:54 Plt Count Comment Decreased (ADEQUATE) A 08/02/18 04:54 MPV 9.3 fL (7.4-11.0) 08/02/18 04:54 Neut % (Auto) 48.1 % (42.0-75.0) 08/02/18 04:54 Lymph % (Auto) 27.7 % (21.0-51.0) 08/02/18 04:54 Alexander % (Auto) 11.7 % (0.0-13.0) 08/02/18 04:54 Eos % (Auto) 11.6 % (0.9-2.9) H 08/02/18 04:54 Baso % (Auto) 0.9 % (0.2-1.0) 08/02/18 04:54 Neut # (Auto) 2.8 x10^3/uL (2.2-4.8) 08/02/18 04:54 Lymph # (Auto) 1.6 X10^3/uL (1.3-2.9) 08/02/18 04:54 Alexander # (Auto) 0.7 x10^3/uL (0.3-0.8) 08/02/18 04:54 Eos # (Auto) 0.7 x10^3/uL (0.0-0.2) H 08/02/18 04:54 Baso # (Auto) 0.1 X10^3/uL (0.0-0.1) 08/02/18 04:54 Absolute Nucleated RBC 0.0 /100WBC 08/02/18 04:54 Plt Morphology Comment Normal (NORMAL) 08/02/18 04:54 RBC Morphology Abnormal (NORMAL) A 08/02/18 04:54 Polychromasia Slight 08/02/18 04:54 Hypochromasia Slight A 08/01/18 07:15 Anisocytosis Slight A 08/02/18 04:54 Macrocytosis Slight A 08/01/18 07:15 Sodium 146 mmol/L (136-145) H 08/02/18 04:54 Corrected Sodium 147 mmol/L (136-145) H 08/02/18 04:54 Potassium 4.1 mmol/L (3.5-5.1) 08/02/18 04:54 Chloride 114 mmol/L (98-107) H 08/02/18 04:54 Carbon Dioxide 26.2 mmol/L (21-32) 08/02/18 04:54 BUN 30 mg/dL (7-18) H 08/02/18 04:54 Creatinine 0.82 mg/dL (0.55-1.02) 08/02/18 04:54 Est GFR (MDRD) Af Amer > 60 (>60) 08/02/18 04:54 Est GFR (MDRD) Non-Af > 60 (>60) 08/02/18 04:54 Glucose 122 mg/dL (65-99) H 08/02/18 04:54 POC Glucose (mg/dL) 123 mg/dL (65-99) H 08/01/18 05:24 Calcium 9.4 mg/dL (8.5-10.1) 08/02/18 04:54 Corrected Calcium 9.9 mg/dL (8.5-10.1) 08/01/18 05:00 Phosphorus 1.1 mg/dL (2.6-4.7) L 08/01/18 14:59 Magnesium 1.7 mg/dL (1.7-2.9) 08/01/18 14:59 Iron 77 ug/dL (50-175) 08/01/18 07:15 TIBC 101 ug/dL (250-450) L 08/01/18 07:15 % Saturation 76.2 % (11.0-46.0) H 08/01/18 07:15 Total Bilirubin 0.30 mg/dL (0.2-1.0) 08/01/18 05:00 AST 31 Units/L (15-37) 08/01/18 05:00 ALT 18 Units/L (12-78) 08/01/18 05:00 Alkaline Phosphatase 86 Units/L (46-116) 08/01/18 05:00 Total Protein 5.4 g/dL (6.4-8.2) L 08/01/18 05:00 Albumin 2.7 g/dL (3.4-5.0) L 08/01/18 05:00 Globulin 2.7 g/dL (2.5-4.5) 08/01/18 05:00 Albumin/Globulin Ratio 1.0 Ratio (1.1-2.1) L 08/01/18 05:00 Prealbumin 8.7 mg/dL (18-35.7) L 07/30/18 05:10 Triglycerides 40 mg/dL (0-150) 08/01/18 14:59 Carcinoembryonic Ag 2.9 ng/mL (0.0-3.0) 07/30/18 05:10 Vitamin B12 735 pg/mL (193-986) 08/01/18 07:15 Folate > 20.0 ng/mL (>8.6) 08/01/18 07:15 PTH Intact 62 pg/mL (15-65) 07/29/18 05:26 Calcium (PTH Intact) 8.5 mg/dL 07/29/18 05:26 Specimen Type Catherized urine 07/28/18 10:08 Urine Color Yellow (YELLOW) 07/28/18 10:08 Urine Appearance Cloudy (CLEAR) 07/28/18 10:08 Urine pH 6.5 (5.0 - 8.0) 07/28/18 10:08 Ur Specific [place] 1.015 (1.000-1.030) 07/28/18 10:08 Urine Protein 2+ (NEGATIVE) 07/28/18 10:08 Urine Glucose (UA) Negative (NEGATIVE) 07/28/18 10:08 Urine Ketones Negative (NEGATIVE) 07/28/18 10:08 Urine Occult Blood 5+ (NEGATIVE) 07/28/18 10:08 Urine Nitrite Negative (NEGATIVE) 07/28/18 10:08 Urine Bilirubin Negative (NEGATIVE) 07/28/18 10:08 Urine Urobilinogen Normal (NORMAL) 07/28/18 10:08 Ur Leukocyte Esterase 2+ (NEGATIVE) 07/28/18 10:08 Urine RBC 20-30 /HPF (NONE SEEN) 07/28/18 10:08 Urine WBC 30-50 /HPF (NONE SEEN) 07/28/18 10:08 Ur Squamous Epith Cells Many /HPF (NEGATIVE) 07/28/18 10:08 Calcium Oxalate Crystal Few /HPF (NEGATIVE) 07/28/18 10:08 Amorphous Sediment 1+ /HPF (NEGATIVE) 07/28/18 10:08 Urine Bacteria 3+ /HPF (NEGATIVE) 07/28/18 10:08 Urine Mucus Few /HPF (NEGATIVE) 07/28/18 10:08 Ur Culture Indicated? Yes/culture set up 07/28/18 10:08 Stool Description 3g,pastey,caban 07/28/18 18:46 Stl Occult Blood (IFOB) Positive (NEGATIVE) A 07/28/18 18:46 - Plan (1) GI bleed Status: Acute Qualifiers: GI bleed type/associated pathology: unspecified gastrointestinal hemorrhage type Qualified Code(s): K92.2 - Gastrointestinal hemorrhage, unspecified Plan: PEPCID IV, PROTONIX IV, ABDOMEN/PELVIS CT WITH CONTRAST, CONTINUE TO MONITOR (2) Sacral decubitus ulcer Status: Acute Qualifiers: Pressure injury stage: stage 3 Qualified Code(s): L89.153 - Pressure ulcer of sacral region, stage 3 Plan: CONSULT , WOUND CARE, CONTINUE TO MONITOR (3) Hypernatremia Status: Acute Plan: D5W AT 75ML/HR, CONTINUE TO MONITOR (4) Hypoalbuminemia Status: Acute Plan: ALBUMIN 25% IV DAILY TPN
[2018-08-02] MEDS: XANAX PO SCH (08:42)
[2018-08-02] MEDS: MOBIC TAB 15 MG PO SCH (08:42)
[2018-08-02] MEDS: NEURONTIN CAP 300 MG PO SCH (08:42)
[2018-08-02] MEDS: PROTONIX INJ 40 MG VIAL IVP SCH (08:42)
[2018-08-02] MEDS: PEPCID 20 MG IV PREMIX* 20 MG/50 ML BAG IV SCH (08:42)
[2018-08-02] MEDS: PLAVIX PO SCH (08:42)
[2018-08-02] MEDS: TAB-A-VITE PO SCH (08:42)
[2018-08-02] MEDS: ZANTAC PO SCH (08:42)
[2018-08-02] MEDS: ASPIRIN EC 81 MG PO SCH (08:42)
[2018-08-02] MEDS: COLACE CAP 100 MG PO SCH (08:42)
[2018-08-02] MEDS: ZESTRIL TAB 10 MG PO SCH (08:42)
[2018-08-02] MEDS: NAMENDA TAB 10 MG PO SCH (08:43)
[2018-08-02] MEDS: VITAMIN C PO SCH (08:44)
[2018-08-02] MEDS: ZINC SULFATE PO SCH (08:59)
[2018-08-02] MEDS: INVANZ INJ 1 GM VIAL 1 GM in NS 100 ML IV + SPIKE MINIBAG* 100 ML IV SCH (09:56)
[2018-08-02] MEDS: ALBUMIN HUMAN 25%- 100 ML 100 ML IV SCH (11:15)
--- NOTE | 2018-08-02 11:57 | RAD ---
HISTORY: Post BE for retained barium Study: KUB Comparison: 08/01/2018. Findings: There has been considerable clearing of barium since the prior study with a small amount barium present within the colon. 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 No bowel obstruction is seen. There is bony demineralization. IMPRESSION: Small amount of barium present involving the colon. There is barium trapped within multiple diverticular of the sigmoid region. Reported By:
[2018-08-02 12:34] VITALS: BP 157/65
== END 2018-08-02 15:00 | DRG 640 ==
LOC: MED/SURG 21:50
PROVIDERS: ADMIT Internal Medicine; ATTEND Internal Medicine
DX: E46 Unspecified protein-calorie malnutrition; E86.0 Dehydration; M13.89 Other specified arthritis, multiple sites; F41.8 Other specified anxiety disorders; L89.153 Pressure ulcer of sacral region, stage 3; R10.84 Generalized abdominal pain; I10 Essential (primary) hypertension; K92.2 Gastrointestinal hemorrhage, unspecified; E88.09 Other disorders of plasma-protein metabolism, not elsewhere classified; Z85.3 Personal history of malignant neoplasm of breast; K21.9 Gastro-esophageal reflux disease without esophagitis; K56.699 Other intestinal obstruction unspecified as to partial versus complete obstruction; E87.0 Hyperosmolality and hypernatremia; B96.29 Other Escherichia coli [E. coli] as the cause of diseases classified elsewhere
CPT/HCPCS: 36415; 74000; 74018; 74270; 78306; 80048; 80053; 81001; 81050; 82270; 82340; 82378; 82607; 82746; 83540; 83550; 83735; 83970; 84100; 84132; 84134; 84478; 85014; 85018; 85025; 87086; 87088; 87186; 97163; 97166; 99100; A4217; A4222; B4189; C9113; P9047; S0028; A9503; J1335; J2405; J2543; J2550; J2704; J7040; J7050; J7060